=== PATIENT | male | born 1940 | race Caucasian/White ===

== ENCOUNTER → 2016-08-04 | Outpatient (CLI) | payer OTHER ==
[~2016-08-04] MED LIST: 'XANAX0.5 MG PO; ASPIR LOW81 MG PO; ASPIRIN81 M1 PO; ASPIRIN81 MG PO; BACTRIM DS 8001 TA1 PO; CIPRO500 MG PO; CIPROFLOXACIN500 MG PO; CLARITIN10 MG PO; CRESTOR5 MG PO; DIABETA2.5 MG PO; DILTIAZEM240 M1 PO; ELIMITE 5%60 GM T; FAMOTIDINE40 MG PO; GABAPENTIN100 M2 PO; GLIPIZIDE XL2.5 MG PO; GLUCOTROL10 MG PO; HYDROCODONE BIT1 T11 PO; KLOR-CON M2020 MEQ PO; KLOR-CON20 MEQ PO; LASIX20 MG PO; LEVOFLOXACIN500 MG PO; LIDEX 0.05% CRE15 GM T; LISINOPRIL5 MG PO; LOMOTIL 0.025 M1 TA1 PO; LOPRESSOR25 MG PO; METFORMIN500 MG PO; METOPROLOL TART50 M1 PO; NITROGLYCERIN0.4 MG SL; NITROSTAT0.4 MG SL; PEPCID40 MG PO; PLAVIX75 M1 PO; PLAVIX75 MG PO; POTASSIUM CHLO20 ME3 PO; PRAVACHOL80 M1 GT; PREDNISONE20 M1 PO; PREDNISONE50 MG PO; PROTONIX20 MG PO; SERTRALINE50 MG PO; XANAX0.5 MG PO; ZOCOR40 MG PO; ZOFRAN ODT4 MG SL
[2016-08-04 10:41] LABS: BASO % 0.5 % (0.0-1.0); EOS # 0.2 10*3/uL (0.0-0.4); EOS % 2.7 % (1.0-4.0); HEMOGLOBIN 13.5 g/dl (14.0-18.0); LYMPH # 1.5 10*3/uL (1.3-4.4); LYMPH % 17.7 % (27.0-41.0); MEAN CELL VOLUME 86.5 fl (80.0-94.0); MEAN CORPUSCULAR HGB 28.5 pg (27.0-31.0); MEAN CORPUSCULAR HGB CONC 32.9 g/dl (33.0-37.0); MEAN PLATELET VOLUME 10.3 fl (9.6-12.3); MONO # 0.7 10*3/uL (0.1-1.0); MONO % 7.8 % (3.0-9.0); NEUT # 6.1 10*3/uL (2.3-7.9); NEUT % 70.9 % (47.0-73.0); PLATELET COUNT AUTOMATED 200 10*3/uL (130-400); RED BLOOD COUNT 4.74 10*6/uL (4.50-5.90); RED CELL DISTRI WIDTH 16.2 % (0-14.5); WHITE BLOOD COUNT 8.6 10*3/uL (4.8-10.8)
[2016-08-04 11:11] LABS: ALBUMIN 3.4 gm/dl (3.1-4.5); BILIRUBIN, TOTAL 0.3 mg/dl (0.2-1.0); BUN 22 mg/dl (7-24); CARBON DIOXIDE 26 mmol/L (21-32); CHLORIDE 104 mmol/L (98-107); EST GLOM FILT AFRICAN AMERICAN > 60 ml/min; GLUCOSE 126 mg/dL (65-99); POTASSIUM 4.7 mmol/L (3.5-5.1); SGOT/AST 22 IU/L (3-35); SGPT/ALT 25 U/L (12-78); SODIUM 140 mmol/L (136-145)
[2016-08-04 11:12] LABS: ALKALINE PHOSPHATASE 76 U/L (45-117); TOTAL PROTEIN 7.8 gm/dL (6.4-8.2)
== END | disposition home or self-care (01) ==
LOC: LAB 10:22 → US 11:00
PROVIDERS: Urology
DX: C67.9 Malignant neoplasm of bladder, unspecified (principal); Z90.6 Acquired absence of other parts of urinary tract

== ENCOUNTER → 2016-11-13 | Outpatient (CLI) | payer OTHER ==
[2016-11-13 12:26] LABS: BUN 17 mg/dl (7-24); CARBON DIOXIDE 26 mmol/L (21-32); CHLORIDE 105 mmol/L (98-107); CHOLESTEROL 136 mg/dL (<200); EST GLOM FILT AFRICAN AMERICAN > 60 ml/min; GLUCOSE 100 mg/dL (65-99); HDL CHOLESTEROL 34 mg/dl (40-60); LDL CHOLESTEROL 48 mg/dL (9-159); POTASSIUM 4.7 mmol/L (3.5-5.1); SGOT/AST 21 IU/L (3-35); SGPT/ALT 26 U/L (12-78); SODIUM 137 mmol/L (136-145); TRIGLYCERIDES 270 mg/dl (<150); VLDL CHOLESTEROL 54 mg/dL (6-40)
== END | disposition home or self-care (01) ==
LOC: LAB 11:10
PROVIDERS: Internal Medicine Cardiovascular Disease
DX: I25.5 Ischemic cardiomyopathy (principal)

== ENCOUNTER → 2016-12-24 | Outpatient (CLI) | payer OTHER ==
[2016-12-24 12:11] LABS: BUN 22 mg/dl (7-24); CHLORIDE 104 mmol/L (98-107); CREATININE 0.98 mg/dL (0.70-1.30); POTASSIUM 4.5 mmol/L (3.5-5.1); SODIUM 138 mmol/L (136-145)
== END | disposition home or self-care (01) ==
LOC: LAB 11:18
PROVIDERS: Internal Medicine Cardiovascular Disease
DX: I50.22 Chronic systolic (congestive) heart failure (principal)

== ENCOUNTER → 2017-02-11 | Outpatient (CLI) | payer OTHER ==
[2017-02-11 12:28] LABS: BASO % 0.3 % (0.0-1.0); EOS # 0.2 10*3/uL (0.0-0.4); EOS % 2.6 % (1.0-4.0); HEMATOCRIT 42.4 % (42.0-52.0); HEMOGLOBIN 13.9 g/dl (14.0-18.0); LYMPH # 1.2 10*3/uL (1.3-4.4); LYMPH % 18.7 % (27.0-41.0); MEAN CELL VOLUME 89.6 fl (80.0-94.0); MEAN CORPUSCULAR HGB 29.4 pg (27.0-31.0); MEAN CORPUSCULAR HGB CONC 32.8 g/dl (33.0-37.0); MEAN PLATELET VOLUME 10.7 fl (9.6-12.3); MONO # 0.7 10*3/uL (0.1-1.0); MONO % 10.4 % (3.0-9.0); NEUT # 4.5 10*3/uL (2.3-7.9); NEUT % 67.5 % (47.0-73.0); PLATELET COUNT AUTOMATED 197 10*3/uL (130-400); RED BLOOD COUNT 4.73 10*6/uL (4.50-5.90); RED CELL DISTRI WIDTH 14.4 % (0-14.5); WHITE BLOOD COUNT 6.6 10*3/uL (4.8-10.8)
[2017-02-11 13:03] LABS: ALBUMIN 3.5 gm/dl (3.1-4.5); BUN 22 mg/dl (7-24); CHLORIDE 106 mmol/L (98-107); CREATININE 0.92 mg/dL (0.70-1.30); POTASSIUM 4.6 mmol/L (3.5-5.1); SGOT/AST 20 IU/L (3-35); SGPT/ALT 32 U/L (12-78); SODIUM 138 mmol/L (136-145)
[2017-02-11 13:04] LABS: ALKALINE PHOSPHATASE 81 U/L (45-117)
== END | disposition home or self-care (01) ==
LOC: LAB 11:32
PROVIDERS: Urology
DX: Z12.5 Encounter for screening for malignant neoplasm of prostate (principal); D40.0 Neoplasm of uncertain behavior of prostate

== ENCOUNTER → 2017-02-12 | Outpatient (CLI) | payer OTHER ==
[2017-02-12 11:36] LABS: BUN 21 mg/dl (7-24); CHLORIDE 104 mmol/L (98-107); CREATININE 1.02 mg/dL (0.70-1.30); POTASSIUM 4.8 mmol/L (3.5-5.1); SODIUM 137 mmol/L (136-145)
== END | disposition home or self-care (01) ==
LOC: LAB 10:17
PROVIDERS: Internal Medicine Cardiovascular Disease
DX: I25.10 Atherosclerotic heart disease of native coronary artery without angina pectoris (principal); I10 Essential (primary) hypertension

== ENCOUNTER → 2017-06-15 | Outpatient (CLI) | payer MEDICARE | END | disposition home or self-care (01) | LOC: CT 09:45 | DX: Z85.46 Personal history of malignant neoplasm of prostate (principal); Z95.0 Presence of cardiac pacemaker ==

== ENCOUNTER 2017-06-25 07:36 | Inpatient (IN) | payer MEDICARE ==
[2017-06-25] VITALS (9 sets, daily range): BP systolic 90–134; BP diastolic 42–87
[~2017-06-25] VITALS: Ht 172.7 cm; Wt 112.7 kg
--- NOTE | ~2017-06-25 | EKG ---
[place], [place] ELECTROCARDIOGRAM REPORT NAME: ALFREDO COOPER UNIT #: [id number] ROOM: 427 DOCTOR: KAITLYNN RODRIGUEZ [facility] BIRTHDATE: [birth year] DOS: 07/02/2017 TRACING TIME: 0736 CONCLUSION: The underlying rhythm appears to be atrial flutter. VVI pacing appears to be pacemaker dependent. JENNIFER CALDERÓN MD CM:EKGRPT:ELECTROCARDIOGRAM REPORT [id number] JENNIFER CALDERÓN MD [facility]
--- NOTE | ~2017-06-25 | PROC NOTE ---
[place], [place] PROCEDURE NOTE NAME: ALFREDO COOPER UNIT #: [id number] ROOM: 408 DOCTOR: NISA TOMAS BIRTHDATE: [birth year] DOS: 07/01/2017 MODIFIED BARIUM SWALLOW LOCATION: [facility], room 408, bed 2. DOCTOR: 07/01/2017. ORDERING PHYSICIAN: Cole Forrest DO RADIOLOGIST: Dr. Kam. BACKGROUND INFORMATION: The patient os a 76-year-old male who was seen for modified barium swallow. This test was ordered to rule out silent aspiration. The patient is diagnosed with acute aspiration pneumonia. Further medical history is significant for UTI, ARF, HTN, AK, CAD, DM, CABG and anxiety. The patient denied any recent difficulty with chewing or swallowing. He currently receives a regular diet and thin liquids. For today's assessment, he was alert and able to follow commands. Oral peripheral examination revealed presence of natural teeth with several missing. Lingual, labial and buccal skills were within normal limits in terms of strength, range of motion and coordination. The patient was able to volitionally cough and swallow. METHODS AND MATERIALS USED FOR THE EXAM: The patient was positioned in the lateral plane and the exam was viewed under fluoroscopy. The patient was presented with a variety of consistencies to assess swallowing skills including pureed consistency mixed with barium presented in half teaspoon amounts, barium-coated banana and sandwich taken in bite size pieces and thin liquid barium taken by cup. ORAL PHASE: The patient achieved adequate labial seal around cup and spoon with no anterior loss. Bolus formation and transit were adequate. Careful mastication was displayed with all solids. Tongue to palate contact was within normal limits. Tongue retraction was in normal limits. Velar functioning was within normal limits with no nasal regurgitation. PHARYNGEAL PHASE: Unremarkable. ESOPHAGEAL PHASE: This phase of the swallow was not formally assessed during this exam. IMPRESSIONS AND RECOMMENDATIONS: Based upon assessment results, this 76-year-old patient presents with swallowing skills within normal limits and oral and pharyngeal phases. Recommend he remain on present diet. Follow up therapy is not warranted. Results and recommendations were shared with the patient and he verbalized understanding. Thank you very much for this referral. Should you have any questions regarding this patient, please contact the speech pathologist at [phone]. [place], [place] PROCEDURE NOTE NAME: ALFREDO COOPER UNIT #: [id number] ROOM: [facility] DOCTOR: NISA TOMAS BIRTHDATE: [birth year] NISA TOMAS CM:PROCNOTE:PROCEDURE NOTE [id number] NISA TOMAS
--- NOTE | ~2017-06-25 | PR ---
[place], [place] PROGRESS NOTE NAME: ALFREDO COOPER UNIT #: [id number] ROOM: 408 DOCTOR: FORTINO ZAMORA MD BIRTHDATE: [birth year] DOS: 06/29/2017 SUBJECTIVE: The patient has been currently sitting on the chair without any distress. Cough has been noted mild without any sputum expectoration. Denies symptoms of chest pain or hemoptysis, abdominal pain. Eating his food for this patient as ordered. Respiratory harper, the patient noted quite stable. OBJECTIVE: VITAL SIGNS: Temperature 99.2 degree Fahrenheit, normal temperature, respiratory rate 18, heart rate 117-88, blood pressure 125/98-126/65. Pulse oxygen saturation 3 liters nasal cannula 93% saturation. HEENT: Head was atraumatic. Eyes nonicterus. NECK: Supple. CARDIOVASCULAR: S1, S2 audible. LUNG: ____ reduction in breath sounds bilaterally. No wheezing. Minimal crackles in the right lung base. ABDOMEN: Soft and obese. Bowel sounds present. EXTREMITIES: With mild edema. LABORATORY DATA: Culture of the sputum for the patient from yesterday was pending. The Gram stain of the patient, reviewed and it shows moderate epithelial cells, many gram-positive cocci in chains and white blood cells. Normal abhay preliminary reported. CBC today: WBC count normal, hemoglobin 11.8, platelet count was normal. BMP: Normal BUN and creatinine. IMPRESSION: The patient resolving small bowel obstruction. Acute aspiration pneumonia noted clinically stable. The patient underwent this time treated with antibiotic seem to be clinically responding to treatment with stable pulmonary infiltration noted, lower lung yesterday, the patient with a chest x-ray. PLAN OF TREATMENT: The patient will be treated at this time for the current pneumonia with the antibiotics. Follow up chest x-ray possible in the morning to reassess. No new other intervention to be done. Culture of the sputum will be monitored. [place], [place] PROGRESS NOTE NAME: ALFREDO COOPER UNIT #: [id number] ROOM: 408 DOCTOR: FORTINO ZAMORA MD BIRTHDATE: [birth year] FORTINO BUSTAMANTE MD CM:PNTRANS [id number] FORTINO MORFIN MD 06/29/17 2310 interface
--- NOTE | ~2017-06-25 | EKG ---
[place], [place] ELECTROCARDIOGRAM REPORT NAME: ALFREDO COOPER UNIT #: [id number] ROOM: 408 DOCTOR: KAITLYNN RODRIGUEZ [facility],JENNIFER BIRTHDATE: [birth year] DOS: 06/25/2017 TIME: 0812 hours. CONCLUSION: VVI pacing, indeterminate rhythm, probably sinus with atrial sensing and ventricular pacing, low voltage in limb leads, and nonspecific ST changes. JENNIFER CALDERÓN MD CM:EKGRPT:ELECTROCARDIOGRAM REPORT 0717 0738 JENNIFER CALDERÓN MD [facility]
--- NOTE | ~2017-06-25 | PR ---
[place], [place] PROGRESS NOTE NAME: [facility]OPER [id number] UNIT #: [id number] ROOM: 408 DOCTOR: ROBBY MORFIN MD,FORTINO BIRTHDATE: [birth year] DOS: 06/28/2017 PULMONARY PROGRESS NOTE SUBJECTIVE: The patient was noted comfortable at this time, resting on the bed. Denied symptoms of chest pain or any abdominal pain. The patient has not been noted symptoms of nausea or vomiting. He was eating oral diet. There was no symptoms of abdominal pain. The antibiotic for the patient was continued. OBJECTIVE: VITAL SIGNS: For the patient which has been recorded showed the temperature noted as normal, respiratory rate 20, heart rate of 118/87, blood pressure 110/80 to 111/65. The pulse oxygen saturation for the patient on 2 liters was 94% saturation. HEENT: Showed head was atraumatic, eyes nonicterus. NECK: Supple. CARDIOVASCULAR: S1, S2 audible. LUNGS: Still noted decreased breath sounds with basilar crackles. ABDOMEN: Soft, nontender. Bowel sounds present. EXTREMITIES: Without any acute edema. LABORATORY DATA: Chest x-ray shows persistent bilateral lower lobe infiltration. IMPRESSION: Bilateral lower lobe pneumonia secondary to aspiration with small-bowel obstruction. PLAN OF MANAGEMENT: Continue antibiotics, bronchodilators, oxygen supplementation as previously without changes. Continue all other supportive plan of management and care. Usual treatment and therapies. FORTINO BUSTAMANTE MD CM:PNTRANS [id number] FORTINO MORFIN MD 06/29/17 0508 interface
--- NOTE | ~2017-06-25 | PR ---
[place], [place] PROGRESS NOTE NAME: ALFREDO COOPER [facility] #: [id number] UNIT #: [id number] ROOM: 408 DOCTOR: ROBBY MORFIN MD,FORTINO BIRTHDATE: [birth year] DOS: 06/30/2017 SUBJECTIVE: The patient has been noted with minimal cough at this time. Denies symptoms of chest pain or any hemoptysis. Denies symptoms of abdominal pain, nausea, vomiting, or diarrhea. The patient was continued on intravenous antibiotics. HISTORY OF PRESENT ILLNESS: The patient reported no symptoms of nausea or vomiting, tolerating the oral food. Denies any symptoms of nausea and vomiting at this time or diarrhea. He denies any pain or edema of the lower extremity. Denies symptoms of palpitations. General weakness and fatigue was noted. The patient was ambulated with the use of the walker. OBJECTIVE: VITAL SIGNS: For the patient, which was recorded showed the temperature noted as normal. The respiratory rate of the patient recorded as 20, heart rate of 118-132, blood pressure 135/70-122/62. The pulse oxygen saturation of the patient noted on 2 liters nasal cannula 96% saturation. HEENT: Examination shows head was atraumatic. Eyes nonicterus. NECK: Supple. CARDIOVASCULAR: S1, S2 is audible. LUNGS: The patient was noted with moderate decreased breath sounds were noted in the lungs. The crackles still heard in the lower portion of the lungs, much greater in the left lower than the right lower lobe. ABDOMEN: Soft and nontender. EXTREMITIES: The patient was noted without any clubbing or cyanosis. Mild edema was noted at the ankles. VISIBLE SKIN: No lesions or rashes. CENTRAL NERVOUS SYSTEM: Cranial nerves 2-12 intact. No focal deficits. MUSCULOSKELETAL: Without any acute deformities. LABORATORY DATA: One of the sputum culture from the 18th shows moderate growth of yeast. The second culture which was done later on for the patient showing normal abhay. Preliminary final culture results were pending. Chest x-ray of the patient shows evidence of bilateral infiltration, greater in the left lower than the right lower lobe. IMPRESSION: Bilateral acute aspiration pneumonia with recurrent small-bowel obstruction with aspiration. PLAN OF THERAPY. Changing the Rocephin for this patient to intravenous doxycycline. Discontinuation of the Zithromax. Monitor chest x-ray as well. Other supportive plan of management and care plan: The patient was also noted intermittent tachycardia, which has been managed as well. Other supportive therapy, plan of management and care plan. No change. There was no blood culture needed at the present time. Other supportive plan of management and treatments. [place], [place] PROGRESS NOTE NAME: ALFREDO COOPER UNIT #: [id number] ROOM: [facility] DOCTOR: ROBBY MORFIN MD,FORTINO BIRTHDATE: [birth year] FORTINO BUSTAMANTE MD CM:PNKEM [id number] FORTINO MORFIN MD 06/30/177 interface
--- NOTE | ~2017-06-25 | PR ---
[place], [place] PROGRESS NOTE NAME: ALFREDO COOPER UNIT #: [id number] ROOM: 427 DOCTOR: ROBBY MORFIN MD,FORTINO BIRTHDATE: [birth year] DOS: 07/01/2017 SUBJECTIVE: The patient noted comfortable at this time, resting in the bed, stated reduction of the respiratory symptoms. Cough has been noted productive, able to expectorate sputum. Feeling better in the last 24 hours. Denies symptoms of chest pain or hemoptysis. OBJECTIVE: VITAL SIGNS: Normal temperature, respiratory rate 18, heart rate 78, blood pressure 98/49. Pulse oxygen saturation on 2 liters 95% saturation. HEENT: Examination shows head was atraumatic. Eyes: No icterus. NECK: Supple. CARDIOVASCULAR: S1, S2 is audible. LUNGS: Noted without any wheezing. Crackles still noted in the lower portion of the lungs region bilaterally, partially decreased from previously. ABDOMEN: Soft, nontender, bowel sounds present. EXTREMITIES: Without any acute edema. IMPRESSION: The patient was being currently noted with acute aspiration pneumonia of the patient's lower lung. The patient currently being treated with antibiotics. The patient started on IV doxycycline yesterday. The Rocephin was also continued. PLAN OF THERAPY: Obtain a chest x-ray in the morning for reassessment of progression of pneumonia prior to making final home discharge consideration. Tachycardia has been noted better. FORTINO BUSTAMANTE MD CM:PNTRANS [id number] FORTINO MORFIN MD 07/09/17 1009 interface
--- NOTE | ~2017-06-25 | CON ---
[place], [place] REPORT OF CONSULTATION NAME: ALFREDO COOPER [facility] #: [id number] UNIT #: [id number] ROOM: 408 DOCTOR: ROBBY MORFIN MDFORTINO BIRTHDATE: [birth year] DOS: 06/27/2017 PULMONARY CONSULTATION, EVALUATION AND MANAGEMENT CONSULTATION REQUESTED BY By the hospitalist services. REASON FOR CONSULTATION: For the assessment of pneumonia. HISTORY OF PRESENT ILLNESS:. This is a 76-year-old white male patient who was admitted to the hospital on 06/25/2017 as the patient developed pain in the abdomen. The patient reported with symptoms of nausea, vomiting, emesis and unable to pass the stool. The patient was admitted to the hospital. A CT scan of the abdomen and pelvis was done for the patient. NG tube was placed for the patient and small bowel obstruction was suspected. The patient has been treated for that. He has not been noted any symptoms of coughing, sputum expectoration, or chest pain with the current symptom. Denies symptoms of acute shortness of breath. On this hospitalization, the patient had a CT scan of the chest performed yesterday as the patient described some symptoms of shortness breath and pleural fluid noted in the chest x-ray. Reported findings of pneumonia for this patient, superimposed on the emphysema. The patient denies any symptoms of acute shortness of breath at this time. He does not report any symptoms of coughing or chest pain or hemoptysis. REVIEW OF SYSTEMS: CONSTITUTIONAL SYMPTOMS: Fatigue and tiredness, which was noted better since admission. EYES: Denies burning, redness, or tenderness. EARS, NOSE, THROAT SYMPTOMS: Denies sore throat, hoarseness, otalgia, postnasal drainage or epistaxis. CARDIOVASCULAR: Denies anginal pain, edema, or pain of lower extremity. GASTROINTESTINAL SYMPTOMS: Abdominal pain previously reported seem to be better at this time. He has been passing stool and eating a solid breakfast this morning after assessment. Denies symptoms of abnormal weight loss or aspiration or dysphagia. GENITOURINARY: No dysuria, suprapubic pain, or hematuria. MUSCULOSKELETAL: No acute joint pain, redness, or tenderness. SKIN: No abnormal lesions or rashes. MUSCULOSKELETAL: Without any acute deformities are reported. CENTRAL NERVOUS SYSTEM: No dizziness, headache, diplopia, or syncopal episodes. Remaining systems were reviewed, they were noted all negative by the patient. PAST MEDICAL HISTORY: 1. Known with history of type 2 diabetes mellitus. 2. COPD. 3. Hyperlipidemia. 4. Essential hypertension. 5. Cardiac dysrhythmia with AICD in place. 6. Chronic prostate problem, bladder cancer with suprapubic catheter. [place], [place] REPORT OF CONSULTATION NAME: ALFREDO COOPER UNIT #: [id number] ROOM: 408 DOCTOR: GABRIELLA ZAMORA MDM BIRTHDATE: [birth year] PAST SURGICAL HISTORY: 1. Abdominal hernia repair. 2. Total cystectomy for the management of bladder cancer with suprapubic catheter insertion. 3. Cardiac catheterization and coronary stents insertion. 4. ____ history. 5. Radical prostatectomy. 6. Pacemaker/AICD insertion. SOCIAL HISTORY: He is , lives at home. The patient has been noted history of tobacco use, started teenager heavy smoking of cigarettes, 1.5 pack of cigarettes per day until 1997. 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 He does have 2 children. FAMILY HISTORY: The patient reported father with complication related to the congestive heart failure. Mother also with complication of congestive heart failure. HOME MEDICATIONS: Listed as use of aspirin, vitamin D, Plavix, Cardizem, Entresto, famotidine, gabapentin, glipizide, Mucinex, loratadine, metformin, metoprolol tartrate, nitroglycerin, potassium chloride, simvastatin and CoQ10. ALLERGIES: ALLERGIES TO THE VANCOMYCIN WITH SEVERE ANAPHYLAXIS AND SPIRIVA CAUSING CHEST PAIN. PHYSICAL EXAMINATION: GENERAL: A 76-year-old male who has been currently sitting on the side of the bed, eating his breakfast. Height was noted 5 feet 8 inches, weight of 248 pounds. VITAL SIGNS: For the patient, which has been recorded showed the temperature noted as 99.3 degree Fahrenheit, normal temperature, respiratory rate 19-20, heart rate of 115-93, blood pressure 104/52-98/50. The pulse oxygen saturation of the patient recorded on 4 liters 91% saturation at rest. The room air oxygen saturation 96% saturation previously. HEENT: Mild to moderate obese. Head was atraumatic. Eye nonicterus. NECK: Supple. CARDIOVASCULAR: S1, S2 audible. LUNGS: Noted scattered crackles in the lungs bilaterally. There was no wheezing. ABDOMEN: Noted [id number]-[id number] obesity, bowel sounds are present without any tenderness. CENTRAL NERVOUS SYSTEM: Cranial nerves 2-12 intact. MUSCULOSKELETAL: Noted without any acute deformities. SKIN: No lesions or rashes. LABORATORY DATA: CBC of the patient on admission 06/25/2017 was essentially noted normal. Lactic acid 3.6 on admission on 06/25/2017. PT/PTT for the patient on 06/26/2017 was normal. CMP of the patient on 06/25/2017 for the patient, BUN 20, creatinine 1.38. Sodium 134. The PT/INR for the patient on the 06/25/[address] scan of the abdomen, pelvis, and lower [place], [place] REPORT OF CONSULTATION NAME: ALFREDO COOPER UNIT #: [id number] ROOM: [facility] DOCTOR[facility] B[facility] [birth year] portion of the thoracic images of the patient were reviewed. The patient initially done at 06/15/2017, patient shows a small area of infiltration in the left lower lobe cannot be excluded, otherwise, there was lower portion of the chest. The patient does not show any acute infiltration. Chest x-ray of the patient shows cardiomegaly. For this patient, NG tube in place with incomplete visibility of the left hemidiaphragm. The patient AICD noted in place. The CT scan of the chest for the patient was noted with a dense infiltration. In the left lower lobe for the patient also infiltrate was involving part of the left upper lobe as well. Small patchy infiltration noted in the left upper lobe. Cystic appearance was noted in the posterior subsegment of the left upper lobe, most likely is an emphysema changes surrounded by the dense area of consolidation, infiltration. Mild thickening of the right minor fissure was also seen. IMPRESSION: 1. The patient was occurring to the hospital with GI symptoms, nausea, vomiting, and constipation with small-bowel obstruction most likely aspiration pneumonia to be considered intermittently developed from admission is the most likely cause. The community-acquired infection would be considered for this patient as well as the antibiotic, which has been given for this patient should suffice for recurrent community-acquired aspiration with Rocephin and Zithromax. Monitor temperature curve. Bronchodilator. The patient will be added to the treatment to help mobilize secretions. Order the sputum for Gram stain and culture to coughing increase and they become productive. Other supportive plan of therapy and management, plan of care. Additional treatment changes to be made for this patient based on the progression of the illness. Thanks for allowing me to participate in the care of this patient. FORTINO BUSTAMANTE MD CM:CONSTR:REPORT OF CONSULTATION 1245 06/28/17 0056 interface
--- NOTE | ~2017-06-25 | PR ---
[place], [place] PROGRESS NOTE NAME: ALFREDO COOPER UNIT #: [id number] ROOM: 427 DOCTOR: FORTINO ZAMORA MD BIRTHDATE: [birth year] DOS: 06/30/2017 SUBJECTIVE: He has not been reported any symptoms of cough. Denies symptoms of chest pain or any hemoptysis. The patient denies symptoms of nausea or vomiting. OBJECTIVE: VITAL SIGNS: For the patient, which was recorded showed the temperature noted as normal. The respiratory rate of the patient recorded as 20, heart rate 94, blood pressure 99/64, 120/68. Pulse oxygen saturation of the patient was recorded as 94% on room air. HEENT: Examination shows head was atraumatic. Eyes nonicterus. NECK: Supple. CARDIOVASCULAR: S1, S2 audible. LUNGS: The patient was noted without any acute finding. Moderate obesity. NECK: Supple. CARDIOVASCULAR: S1, S2 audible. LUNGS: Noted with improving crackles in the lower lungs bilaterally. ABDOMEN: Soft, nontender. EXTREMITIES: The patient noted without any acute edema. LABORATORY DATA: Modified barium swallow done yesterday noted as normal. The chest x-ray of the patient that was done this morning 2-view, which were taken was assessed shows infiltration of the patient was still noted in lower lung. The patient noted partial improvement. IMPRESSION: 1. Resolving acute bilateral lower lobe aspiration pneumonia clinical radiologically. 2. Small-bowel obstruction, which has been treating the patient conservatively and resolved. PLAN OF MANAGEMENT: The patient will be discharged home on oral antibiotics at this time. Follow up chest x-ray of the patient could be done as an outpatient by the primary care physician for resolution in the next couple of weeks. [place], [place] PROGRESS NOTE NAME: ALFREDO COOPER UNIT #: [id number] ROOM: 427 DOCTOR: FORTINO ZAMORA MD BIRTHDATE: [birth year] FORTINO BUSTAMANTE MD CM:PNTRANS [phone] FORTINO MORFIN MD 07/09/17 1011 interface
[2017-06-25] MEDS ORDERED: ENTRESTO 24 MG1 EACH PO (07:53)
[2017-06-25 08:33] LABS: BASO % 0.3 % (0.0-1.0); EOS # 0.1 10*3/uL (0.0-0.4); HEMOGLOBIN 13.9 g/dl (14.0-18.0); LYMPH # 0.6 10*3/uL (1.3-4.4); LYMPH % 5.6 % (27.0-41.0); MEAN CELL VOLUME 90.5 fl (80.0-94.0); MEAN CORPUSCULAR HGB CONC 33.1 g/dl (33.0-37.0); MEAN PLATELET VOLUME 10.4 fl (9.6-12.3); MONO # 0.8 10*3/uL (0.1-1.0); MONO % 7.1 % (3.0-9.0); NEUT # 9.1 10*3/uL (2.3-7.9); NEUT % 85.6 % (47.0-73.0); PLATELET COUNT AUTOMATED 167 10*3/uL (130-400); RED BLOOD COUNT 4.64 10*6/uL (4.50-5.90); RED CELL DISTRI WIDTH 14.2 % (0-14.5); WHITE BLOOD COUNT 10.7 10*3/uL (4.8-10.8)
[2017-06-25 08:42] LABS: ACT PARTIAL THROMBO TIME 23.1 SECONDS (20.8-31.5)
[2017-06-25 08:48] LABS: ALBUMIN 3.3 gm/dl (3.1-4.5); ALKALINE PHOSPHATASE 69 U/L (45-117); BUN 20 mg/dl (7-24); CHLORIDE 101 mmol/L (98-107); CREATININE 1.38 mg/dL (0.70-1.30); LIPASE 195 U/L (73-393); POTASSIUM 4.9 mmol/L (3.5-5.1); SGOT/AST 20 IU/L (3-35); SGPT/ALT 28 U/L (12-78); SODIUM 134 mmol/L (136-145); TOTAL PROTEIN 7.4 gm/dL (6.4-8.2); TROPONIN I < 0.015 ng/ml (<0.045)
[2017-06-25 09:01] LABS: BILIRUBIN NEGATIVE (NEGATIVE); BLOOD NEGATIVE (NEGATIVE); CLARITY SL CLOUDY (CLEAR); COLOR YELLOW (YELLOW); GLUCOSE NEGATIVE (NEGATIVE); KETONE NEGATIVE (NEGATIVE); LEUKO ESTERASE NEGATIVE (NEGATIVE); NITRITE POSITIVE (NEGATIVE); PH 6.5 (5.0-9.0); SPECIFIC GRAVITY 1.015 (1.005-1.030); UROBILINOGEN 0.2 E.U./dl (0.2-1.0)
[2017-06-25 09:12] LABS: BACTERIA 2+; WBC 16-20 wbc/hpf (0-5)
[2017-06-25] MEDS ORDERED: SPIRIVA18 MCG PO (13:11)
[2017-06-25] MEDS ORDERED: GUAIFENESIN600 MG PO (13:13)
[2017-06-25] MEDS ORDERED: COQ-1030 MG PO (13:13)
[2017-06-25] MEDS ORDERED: NEURONTIN100 MG PO (13:14)
[2017-06-25] MEDS ORDERED: CARTIA XT240 MG PO (13:15)
[2017-06-25] MEDS ORDERED: VITAMIN D31000 UNIT PO (13:16)
[2017-06-25] MEDS ORDERED: ZOCOR10 MG PO (13:17)
[2017-06-26] VITALS: BP 90/50
[2017-06-26 06:17] LABS: HEMATOCRIT 37.4 % (42.0-52.0); HEMOGLOBIN 12.4 g/dl (14.0-18.0); MEAN CELL VOLUME 92.3 fl (80.0-94.0); MEAN CORPUSCULAR HGB 30.6 pg (27.0-31.0); MEAN CORPUSCULAR HGB CONC 33.2 g/dl (33.0-37.0); MEAN PLATELET VOLUME 10.9 fl (9.6-12.3); PLATELET COUNT AUTOMATED 140 10*3/uL (130-400); RED BLOOD COUNT 4.05 10*6/uL (4.50-5.90); RED CELL DISTRI WIDTH 14.5 % (0-14.5); WHITE BLOOD COUNT 7.9 10*3/uL (4.8-10.8)
[2017-06-26 06:26] LABS: ALBUMIN 2.6 gm/dl (3.1-4.5); CREATININE 1.9 mg/dL (0.70-1.30); PHOSPHOROUS 3.7 mg/dL (2.5-4.9); POTASSIUM 5.3 mmol/L (3.5-5.1); TOTAL PROTEIN 6.1 gm/dL (6.4-8.2)
[2017-06-26 06:31] LABS: THYROID STIM HORMONE (HS) 1.03 uIU/ml (0.358-4.75)
[2017-06-26 06:45] LABS: TOTAL CELLS COUNTED 100 #CELLS
[2017-06-26 06:46] LABS: INTERNATIONAL NORM RATIO 1.1 (2.0-3.5); PLATELET SUFFICIENCY NORMAL (NORMAL)
[2017-06-26 07:29] LABS: VITAMIN D, 25-HYDROXY 18.8 ng/mL (30-100)
[2017-06-26 08:00] VITALS: BP 118/42
[2017-06-26 12:00] VITALS: BP 98/50
[2017-06-26 20:00] VITALS: BP 98/42
[2017-06-27] VITALS: BP 104/52
[2017-06-27 06:21] LABS: BASO % 0.1 % (0.0-1.0); EOS # 0.1 10*3/uL (0.0-0.4); EOS % 0.8 % (1.0-4.0); HEMATOCRIT 35.4 % (42.0-52.0); HEMOGLOBIN 11.8 g/dl (14.0-18.0); LYMPH # 0.6 10*3/uL (1.3-4.4); LYMPH % 7.4 % (27.0-41.0); MEAN CELL VOLUME 92.7 fl (80.0-94.0); MEAN CORPUSCULAR HGB 30.9 pg (27.0-31.0); MEAN CORPUSCULAR HGB CONC 33.3 g/dl (33.0-37.0); MONO # 0.6 10*3/uL (0.1-1.0); MONO % 7.8 % (3.0-9.0); NEUT # 6.4 10*3/uL (2.3-7.9); PLATELET COUNT AUTOMATED 115 10*3/uL (130-400); RED BLOOD COUNT 3.82 10*6/uL (4.50-5.90); RED CELL DISTRI WIDTH 14.6 % (0-14.5); WHITE BLOOD COUNT 7.7 10*3/uL (4.8-10.8)
[2017-06-27 06:52] LABS: ALBUMIN 2.5 gm/dl (3.1-4.5); BUN 24 mg/dl (7-24); CHLORIDE 105 mmol/L (98-107); CREATININE 1.14 mg/dL (0.70-1.30); PHOSPHOROUS 2.6 mg/dL (2.5-4.9); POTASSIUM 4.5 mmol/L (3.5-5.1); SODIUM 138 mmol/L (136-145)
[2017-06-27 08:00] VITALS: BP 80/60
[2017-06-27 12:00] VITALS: BP 102/63
[2017-06-27 16:00] VITALS: BP 118/54
[2017-06-27 20:00] VITALS: BP 116/55
[2017-06-28] VITALS: BP 106/52
[2017-06-28 06:22] LABS: BASO % 0.1 % (0.0-1.0); EOS # 0.1 10*3/uL (0.0-0.4); EOS % 1.3 % (1.0-4.0); HEMATOCRIT 35.5 % (42.0-52.0); HEMOGLOBIN 11.7 g/dl (14.0-18.0); LYMPH # 0.6 10*3/uL (1.3-4.4); LYMPH % 7.2 % (27.0-41.0); MEAN CELL VOLUME 92.7 fl (80.0-94.0); MEAN CORPUSCULAR HGB 30.5 pg (27.0-31.0); MONO # 0.8 10*3/uL (0.1-1.0); MONO % 9.4 % (3.0-9.0); NEUT # 6.6 10*3/uL (2.3-7.9); NEUT % 80.9 % (47.0-73.0); PLATELET COUNT AUTOMATED 123 10*3/uL (130-400); RED BLOOD COUNT 3.83 10*6/uL (4.50-5.90); RED CELL DISTRI WIDTH 14.5 % (0-14.5); WHITE BLOOD COUNT 8.2 10*3/uL (4.8-10.8)
[2017-06-28 06:45] LABS: BUN 22 mg/dl (7-24); CHLORIDE 105 mmol/L (98-107); CREATININE 0.92 mg/dL (0.70-1.30); PHOSPHOROUS 2.6 mg/dL (2.5-4.9); POTASSIUM 4.2 mmol/L (3.5-5.1); SODIUM 138 mmol/L (136-145)
[2017-06-28 08:00] VITALS: BP 111/65
[2017-06-28 12:00] VITALS: BP 110/80
[2017-06-28 16:00] VITALS: BP 117/52
[2017-06-29 00:55] VITALS: BP 126/65
[2017-06-29 07:06] LABS: BASO % 0.3 % (0.0-1.0); EOS # 0.2 10*3/uL (0.0-0.4); EOS % 2.7 % (1.0-4.0); HEMATOCRIT 35.7 % (42.0-52.0); HEMOGLOBIN 11.3 g/dl (14.0-18.0); LYMPH # 0.7 10*3/uL (1.3-4.4); LYMPH % 11.1 % (27.0-41.0); MEAN CELL VOLUME 92.2 fl (80.0-94.0); MEAN CORPUSCULAR HGB 29.2 pg (27.0-31.0); MEAN CORPUSCULAR HGB CONC 31.7 g/dl (33.0-37.0); MEAN PLATELET VOLUME 10.7 fl (9.6-12.3); MONO # 0.8 10*3/uL (0.1-1.0); MONO % 12.5 % (3.0-9.0); NEUT # 4.8 10*3/uL (2.3-7.9); NEUT % 72.5 % (47.0-73.0); RED BLOOD COUNT 3.87 10*6/uL (4.50-5.90); RED CELL DISTRI WIDTH 14.5 % (0-14.5); WHITE BLOOD COUNT 6.6 10*3/uL (4.8-10.8)
[2017-06-29 07:07] LABS: PLATELET COUNT AUTOMATED 162 10*3/uL (130-400)
[2017-06-29 07:29] LABS: BUN 22 mg/dl (7-24); CHLORIDE 105 mmol/L (98-107); CREATININE 0.96 mg/dL (0.70-1.30); POTASSIUM 4.1 mmol/L (3.5-5.1); SODIUM 138 mmol/L (136-145)
[2017-06-29 08:00] VITALS: BP 125/98
[2017-06-29 12:00] VITALS: BP 94/62
[2017-06-29 16:00] VITALS: BP 119/66
[2017-06-29 20:00] VITALS: BP 132/71
[2017-06-30] VITALS: BP 122/62
[2017-06-30 00:46] LABS: BUN 24 mg/dl (7-24); CHLORIDE 105 mmol/L (98-107); CREATININE 0.81 mg/dL (0.70-1.30); PHOSPHOROUS 3.2 mg/dL (2.5-4.9); POTASSIUM 4.2 mmol/L (3.5-5.1); SODIUM 139 mmol/L (136-145)
[2017-06-30 06:12] LABS: BASO % 0.3 % (0.0-1.0); EOS # 0.2 10*3/uL (0.0-0.4); EOS % 3.5 % (1.0-4.0); HEMATOCRIT 35.1 % (42.0-52.0); HEMOGLOBIN 11.4 g/dl (14.0-18.0); LYMPH # 0.8 10*3/uL (1.3-4.4); LYMPH % 11.6 % (27.0-41.0); MEAN CELL VOLUME 91.9 fl (80.0-94.0); MEAN CORPUSCULAR HGB 29.8 pg (27.0-31.0); MEAN CORPUSCULAR HGB CONC 32.5 g/dl (33.0-37.0); MEAN PLATELET VOLUME 10.3 fl (9.6-12.3); MONO # 0.8 10*3/uL (0.1-1.0); MONO % 10.9 % (3.0-9.0); NEUT % 72.5 % (47.0-73.0); PLATELET COUNT AUTOMATED 157 10*3/uL (130-400); RED BLOOD COUNT 3.82 10*6/uL (4.50-5.90); RED CELL DISTRI WIDTH 14.4 % (0-14.5); WHITE BLOOD COUNT 6.9 10*3/uL (4.8-10.8)
[2017-06-30 08:00] VITALS: BP 135/70
[2017-06-30] MEDS ORDERED: ENTRESTO 49 MG1 EACH PO (10:48)
[2017-06-30 12:00] VITALS: BP 98/78
[2017-06-30 12:54] LABS: PHOSPHOROUS 2.7 mg/dL (2.5-4.9)
[2017-06-30 16:00] VITALS: BP 106/50
[2017-06-30 20:00] VITALS: BP 100/48
[2017-07-01] VITALS (7 sets, daily range): BP systolic 88–130; BP diastolic 49–62
[2017-07-01 06:49] LABS: BASO % 0.4 % (0.0-1.0); EOS # 0.2 10*3/uL (0.0-0.4); EOS % 2.7 % (1.0-4.0); HEMATOCRIT 35.4 % (42.0-52.0); HEMOGLOBIN 11.7 g/dl (14.0-18.0); LYMPH # 0.7 10*3/uL (1.3-4.4); LYMPH % 10.7 % (27.0-41.0); MEAN CORPUSCULAR HGB 30.1 pg (27.0-31.0); MEAN CORPUSCULAR HGB CONC 33.1 g/dl (33.0-37.0); MEAN PLATELET VOLUME 9.9 fl (9.6-12.3); MONO # 0.7 10*3/uL (0.1-1.0); MONO % 10.4 % (3.0-9.0); NEUT % 74.6 % (47.0-73.0); PLATELET COUNT AUTOMATED 179 10*3/uL (130-400); RED BLOOD COUNT 3.89 10*6/uL (4.50-5.90); RED CELL DISTRI WIDTH 14.2 % (0-14.5); WHITE BLOOD COUNT 6.7 10*3/uL (4.8-10.8)
[2017-07-01 07:02] LABS: BUN 18 mg/dl (7-24); CHLORIDE 104 mmol/L (98-107); CREATININE 0.75 mg/dL (0.70-1.30); PHOSPHOROUS 3.2 mg/dL (2.5-4.9); POTASSIUM 3.9 mmol/L (3.5-5.1); SODIUM 139 mmol/L (136-145)
[2017-07-02] VITALS: BP 106/50
[2017-07-02 07:01] LABS: BASO % 0.3 % (0.0-1.0); EOS # 0.2 10*3/uL (0.0-0.4); EOS % 2.5 % (1.0-4.0); HEMATOCRIT 39.8 % (42.0-52.0); HEMOGLOBIN 12.4 g/dl (14.0-18.0); LYMPH # 0.8 10*3/uL (1.3-4.4); MEAN CELL VOLUME 93.2 fl (80.0-94.0); MEAN CORPUSCULAR HGB CONC 31.2 g/dl (33.0-37.0); MEAN PLATELET VOLUME 9.9 fl (9.6-12.3); MONO # 0.5 10*3/uL (0.1-1.0); MONO % 8.5 % (3.0-9.0); NEUT # 4.5 10*3/uL (2.3-7.9); NEUT % 74.4 % (47.0-73.0); PLATELET COUNT AUTOMATED 206 10*3/uL (130-400); RED BLOOD COUNT 4.27 10*6/uL (4.50-5.90); RED CELL DISTRI WIDTH 14.4 % (0-14.5); WHITE BLOOD COUNT 6.1 10*3/uL (4.8-10.8)
[2017-07-02 08:00] VITALS: BP 123/68
[2017-07-02] MEDS ORDERED: METOPROLOL SUC100 M1 PO (11:08)
[2017-07-02] MEDS ORDERED: DOXYCYCLINE100 M3 PO (11:08)
[2017-07-02] MEDS ORDERED: PROPAFENONE HC225 MG PO (11:08)
[2017-07-02 12:00] VITALS: BP 99/64
== END 2017-07-02 13:10 | disposition home or self-care (01) | DRG 177 ==
LOC: ED 07:36 → 4E 11:35 → EDHOLD 11:35 → 5E 12:01 → 4E 12:16
PROVIDERS: Emergency Medicine; Hospitalist; Internal Medicine; Internal Medicine Nephrology; Student in an Organized Health Care Education/Training Program
PROC: 4B02XSZ Measurement of Cardiac Pacemaker, External Approach (ICD-10-PCS; 2017-06-27)
PROC: BD11YZZ Fluoroscopy of Esophagus using Other Contrast (ICD-10-PCS; principal; 2017-07-01)
PROC: BD1BYZZ Fluoroscopy of Mouth/Oropharynx using Other Contrast (ICD-10-PCS; principal; 2017-07-01)
DX: J69.0 Pneumonitis due to inhalation of food and vomit (principal); N17.0 Acute kidney failure with tubular necrosis; K56.609 Unspecified intestinal obstruction, unspecified as to partial versus complete obstruction; E87.2 Acidosis; I50.22 Chronic systolic (congestive) heart failure; E87.1 Hypo-osmolality and hyponatremia; E11.65 Type 2 diabetes mellitus with hyperglycemia; I11.0 Hypertensive heart disease with heart failure; E87.5 Hyperkalemia; D64.9 Anemia, unspecified; K59.00 Constipation, unspecified; I49.3 Ventricular premature depolarization; I25.10 Atherosclerotic heart disease of native coronary artery without angina pectoris; E78.5 Hyperlipidemia, unspecified; F41.9 Anxiety disorder, unspecified; F17.210 Nicotine dependence, cigarettes, uncomplicated; E66.01 Morbid (severe) obesity due to excess calories; Z93.59 Other cystostomy status; Z82.49 Family history of ischemic heart disease and other diseases of the circulatory system; Z83.3 Family history of diabetes mellitus; Z79.82 Long term (current) use of aspirin; Z79.899 Other long term (current) drug therapy; Z95.5 Presence of coronary angioplasty implant and graft; Z95.810 Presence of automatic (implantable) cardiac defibrillator; Z88.1 Allergy status to other antibiotic agents; I25.2 Old myocardial infarction; Z68.37 Body mass index [BMI] 37.0-37.9, adult; Z79.84 Long term (current) use of oral hypoglycemic drugs; Z90.6 Acquired absence of other parts of urinary tract

== ENCOUNTER → 2017-08-18 | Outpatient (CLI) | payer MEDICARE ==
[~2017-08-18] MED LIST changes: +CARTIA XT240 MG PO; +COQ-1030 MG PO; +DOXYCYCLINE100 M3 PO; +ENTRESTO 24 MG1 EACH PO; +ENTRESTO 49 MG1 EACH PO; +GUAIFENESIN600 MG PO; +METOPROLOL SUC100 M1 PO; +NEURONTIN100 MG PO; +PROPAFENONE HC225 MG PO; +SPIRIVA18 MCG PO; +VITAMIN D31000 UNIT PO; +ZOCOR10 MG PO
[2017-08-18 10:45] LABS: BASO % 0.5 % (0.0-1.0); EOS # 0.3 10*3/uL (0.0-0.4); EOS % 3.9 % (1.0-4.0); HEMATOCRIT 43.7 % (42.0-52.0); LYMPH # 1.1 10*3/uL (1.3-4.4); LYMPH % 14.7 % (27.0-41.0); MEAN CELL VOLUME 93.2 fl (80.0-94.0); MEAN CORPUSCULAR HGB 29.9 pg (27.0-31.0); MEAN PLATELET VOLUME 10.3 fl (9.6-12.3); MONO # 0.8 10*3/uL (0.1-1.0); MONO % 10.2 % (3.0-9.0); NEUT # 5.4 10*3/uL (2.3-7.9); NEUT % 70.3 % (47.0-73.0); PLATELET COUNT AUTOMATED 201 10*3/uL (130-400); RED BLOOD COUNT 4.69 10*6/uL (4.50-5.90); WHITE BLOOD COUNT 7.6 10*3/uL (4.8-10.8)
[2017-08-18 10:50] LABS: BUN 30 mg/dl (7-24); CHLORIDE 104 mmol/L (98-107); CHOLESTEROL 132 mg/dL (<200); HDL CHOLESTEROL 38 mg/dl (40-60); LDL CHOLESTEROL 67 mg/dL (9-159); POTASSIUM 5.5 mmol/L (3.5-5.1); SGOT/AST 16 IU/L (3-35); SGPT/ALT 24 U/L (12-78); SODIUM 137 mmol/L (136-145); TRIGLYCERIDES 136 mg/dl (<150); VLDL CHOLESTEROL 27 mg/dL (6-40)
== END | disposition home or self-care (01) ==
LOC: LAB 10:05
PROVIDERS: Internal Medicine Cardiovascular Disease
DX: I25.10 Atherosclerotic heart disease of native coronary artery without angina pectoris (principal); I11.0 Hypertensive heart disease with heart failure; I50.22 Chronic systolic (congestive) heart failure; E78.5 Hyperlipidemia, unspecified

== ENCOUNTER → 2017-08-20 | Outpatient (CLI) | payer MEDICARE ==
[2017-08-20 11:01] LABS: BUN 28 mg/dl (7-24); CHLORIDE 106 mmol/L (98-107); POTASSIUM 4.7 mmol/L (3.5-5.1); SODIUM 138 mmol/L (136-145)
== END | disposition home or self-care (01) ==
LOC: LAB 09:53
PROVIDERS: Internal Medicine Cardiovascular Disease
DX: I50.22 Chronic systolic (congestive) heart failure (principal)

== ENCOUNTER → 2017-09-23 | Outpatient (CLI) | payer MEDICARE ==
[~2017-09-23] MED LIST changes: +CEFTRIAXONE1 GM IJ; +PROPAFENONE HC225 M1 PO
[2017-09-23 12:18] LABS: BASO % 0.4 % (0.0-1.0); EOS # 0.2 10*3/uL (0.0-0.4); EOS % 2.7 % (1.0-4.0); HEMATOCRIT 44.6 % (42.0-52.0); HEMOGLOBIN 14.2 g/dl (14.0-18.0); LYMPH # 1.2 10*3/uL (1.3-4.4); LYMPH % 17.1 % (27.0-41.0); MEAN CELL VOLUME 92.9 fl (80.0-94.0); MEAN CORPUSCULAR HGB 29.6 pg (27.0-31.0); MEAN CORPUSCULAR HGB CONC 31.8 g/dl (33.0-37.0); MEAN PLATELET VOLUME 10.1 fl (9.6-12.3); MONO # 0.7 10*3/uL (0.1-1.0); MONO % 9.5 % (3.0-9.0); NEUT # 4.9 10*3/uL (2.3-7.9); PLATELET COUNT AUTOMATED 194 10*3/uL (130-400); RED CELL DISTRI WIDTH 14.4 % (0-14.5)
[2017-09-23 12:38] LABS: ALBUMIN 3.5 gm/dl (3.1-4.5); ALKALINE PHOSPHATASE 88 U/L (45-117); BUN 19 mg/dl (7-24); CHLORIDE 105 mmol/L (98-107); CREATININE 1.26 mg/dL (0.70-1.30); POTASSIUM 4.8 mmol/L (3.5-5.1); SGOT/AST 20 IU/L (3-35); SGPT/ALT 28 U/L (12-78); SODIUM 138 mmol/L (136-145); TOTAL PROTEIN 8.2 gm/dL (6.4-8.2)
== END | disposition home or self-care (01) ==
LOC: LAB 11:51 → US 13:30
PROVIDERS: Urology
DX: Z12.5 Encounter for screening for malignant neoplasm of prostate (principal); N13.39 Other hydronephrosis; C67.9 Malignant neoplasm of bladder, unspecified; I10 Essential (primary) hypertension; R31.9 Hematuria, unspecified

== ENCOUNTER 2017-10-30 19:34 | Inpatient (IN) | payer MEDICARE ==
[~2017-10-30] VITALS: Ht 172.7 cm; Wt 113.0 kg
--- NOTE | ~2017-10-30 | EKG ---
[place], [place] ELECTROCARDIOGRAM REPORT NAME: ALFREDO COOPER UNIT #: [id number] ROOM: 522 DOCTOR: GUILHERME DRAFT REPORT BIRTHDATE: [birth year] [facility] Test Date: 2017-10-30 Test Time: 20:06:53 Pat Name: ALFREDO COOPER Department: Room: Gender: [employer] Operations Manager: : 1940 Requested By: EWELINA CARTER Order Number: [id number] Reading MD: Herrera Kim MD Measurements Intervals Parker Rate: 70 P: 70 TN: 36 QRS: 160 QRSD: 141 T: 44 QT: 432 QTc: 467 Interpretive Statements Atrial-ventricular dual-paced complexes 100% V pacing No further analysis attempted due to paced rhythm Baseline wander in lead(s) II,V5,V6 Electronically Signed On 11-02-2017 18:43:13 PDT by Herrera Kim MD CM:EKGRPT:ELECTROCARDIOGRAM REPORT 05 42 EWELINA VANEGAS DRAFT REPORT EWELINA CARTER MD
[2017-10-30 19:34] VITALS: BP 146/71
[~2017-10-30 19:34] MED LIST changes: -CEFTRIAXONE1 GM IJ; -PROPAFENONE HC225 M1 PO
[2017-10-30 20:15] LABS: BASO % 0.4 % (0.0-1.0); EOS # 0.2 10*3/uL (0.0-0.4); EOS % 2.1 % (1.0-4.0); HEMATOCRIT 43.7 % (42.0-52.0); HEMOGLOBIN 14.3 g/dl (14.0-18.0); LYMPH % 9.6 % (27.0-41.0); MEAN CELL VOLUME 89.9 fl (80.0-94.0); MEAN CORPUSCULAR HGB 29.4 pg (27.0-31.0); MEAN CORPUSCULAR HGB CONC 32.7 g/dl (33.0-37.0); MEAN PLATELET VOLUME 10.2 fl (9.6-12.3); MONO # 0.8 10*3/uL (0.1-1.0); MONO % 7.1 % (3.0-9.0); NEUT # 8.8 10*3/uL (2.3-7.9); NEUT % 80.4 % (47.0-73.0); PLATELET COUNT AUTOMATED 231 10*3/uL (130-400); RED BLOOD COUNT 4.86 10*6/uL (4.50-5.90); RED CELL DISTRI WIDTH 14.2 % (0-14.5); WHITE BLOOD COUNT 10.9 10*3/uL (4.8-10.8)
[2017-10-30 20:32] LABS: ALBUMIN 3.6 gm/dl (3.1-4.5); ALKALINE PHOSPHATASE 75 U/L (45-117); BUN 23 mg/dl (7-24); CHLORIDE 94 mmol/L (98-107); CREATININE 1.54 mg/dL (0.70-1.30); LIPASE 277 U/L (73-393); POTASSIUM 4.1 mmol/L (3.5-5.1); SGOT/AST 17 IU/L (3-35); SGPT/ALT 25 U/L (12-78); SODIUM 136 mmol/L (136-145); TOTAL PROTEIN 8.6 gm/dL (6.4-8.2)
[2017-10-30 20:33] LABS: TROPONIN I < 0.015 ng/ml (<0.045)
[2017-10-30 21:11] LABS: BILIRUBIN NEGATIVE (NEGATIVE); BLOOD 2+ (NEGATIVE); CLARITY CLOUDY (CLEAR); COLOR YELLOW (YELLOW); GLUCOSE NEGATIVE (NEGATIVE); KETONE NEGATIVE (NEGATIVE); LEUKO ESTERASE TRACE (NEGATIVE); NITRITE POSITIVE (NEGATIVE); PH >= 9.0 (5.0-9.0); SPECIFIC GRAVITY <= 1.005 (1.005-1.030); UROBILINOGEN 0.2 E.U./dl (0.2-1.0)
[2017-10-30 21:23] LABS: BACTERIA 4+; EPITHELIAL CELLS 0-2; TRIP PHOS CRYSTALS TNTC; WBC 21-30 wbc/hpf (0-5)
[2017-10-31] VITALS: BP 140/43
[2017-10-31 00:38] VITALS: BP 127/61
[2017-10-31 01:00] VITALS: BP 131/74
[2017-10-31 01:14] VITALS: BP 131/74
[2017-10-31] MEDS ORDERED: PROPAFENONE HC225 M1 PO (01:18)
[2017-10-31] MEDS ORDERED: METOPROLOL SUC100 M1 PO (01:18)
[2017-10-31 05:59] LABS: HEMATOCRIT 44.3 % (42.0-52.0); HEMOGLOBIN 14.2 g/dl (14.0-18.0); MEAN CELL VOLUME 92.3 fl (80.0-94.0); MEAN CORPUSCULAR HGB 29.6 pg (27.0-31.0); MEAN CORPUSCULAR HGB CONC 32.1 g/dl (33.0-37.0); MEAN PLATELET VOLUME 10.4 fl (9.6-12.3); PLATELET COUNT AUTOMATED 234 10*3/uL (130-400); RED CELL DISTRI WIDTH 14.4 % (0-14.5); WHITE BLOOD COUNT 21.5 10*3/uL (4.8-10.8)
[2017-10-31 06:11] LABS: BUN 23 mg/dl (7-24); CHLORIDE 95 mmol/L (98-107); CREATININE 1.38 mg/dL (0.70-1.30); PHOSPHOROUS 4.2 mg/dL (2.5-4.9); POTASSIUM 4.5 mmol/L (3.5-5.1); SODIUM 137 mmol/L (136-145)
[2017-10-31 06:44] LABS: PLATELET SUFFICIENCY NORMAL (NORMAL); TOTAL CELLS COUNTED 100 #CELLS
[2017-10-31 08:00] VITALS: BP 120/52
[2017-10-31 12:00] VITALS: BP 108/50
[2017-10-31] MEDS ORDERED: CEFTRIAXONE1 GM IJ (12:47)
== END 2017-10-31 14:56 | disposition short-term general hospital (02) | DRG 388 ==
LOC: ED 19:34 → EDHOLD 23:39 → 5E 10-31 00:12
PROVIDERS: Emergency Medicine Emergency Medical Services; Internal Medicine
PROC: 0D9670Z Drainage of Stomach with Drainage Device, Via Natural or Artificial Opening (ICD-10-PCS; principal; 2017-10-30)
DX: K56.609 Unspecified intestinal obstruction, unspecified as to partial versus complete obstruction (principal); J96.01 Acute respiratory failure with hypoxia; N17.0 Acute kidney failure with tubular necrosis; E44.0 Moderate protein-calorie malnutrition; E11.65 Type 2 diabetes mellitus with hyperglycemia; I42.9 Cardiomyopathy, unspecified; E66.01 Morbid (severe) obesity due to excess calories; I50.22 Chronic systolic (congestive) heart failure; N39.0 Urinary tract infection, site not specified; I11.0 Hypertensive heart disease with heart failure; E78.5 Hyperlipidemia, unspecified; I25.10 Atherosclerotic heart disease of native coronary artery without angina pectoris; Z95.810 Presence of automatic (implantable) cardiac defibrillator; Z79.84 Long term (current) use of oral hypoglycemic drugs; Z85.828 Personal history of other malignant neoplasm of skin; Z88.1 Allergy status to other antibiotic agents; Z88.8 Allergy status to other drugs, medicaments and biological substances; Z79.82 Long term (current) use of aspirin; Z79.899 Other long term (current) drug therapy; Z85.51 Personal history of malignant neoplasm of bladder; Z87.01 Personal history of pneumonia (recurrent); Z95.5 Presence of coronary angioplasty implant and graft; Z82.49 Family history of ischemic heart disease and other diseases of the circulatory system; Z83.3 Family history of diabetes mellitus; Z93.59 Other cystostomy status; Z68.37 Body mass index [BMI] 37.0-37.9, adult

== ENCOUNTER → 2017-11-18 | Outpatient (CLI) | payer MEDICARE ==
[~2017-11-18] MED LIST changes: +CEFTRIAXONE1 GM IJ; +PROPAFENONE HC225 M1 PO
[2017-11-18 10:53] LABS: BASO % 0.2 % (0.0-1.0); EOS # 0.2 10*3/uL (0.0-0.4); EOS % 1.7 % (1.0-4.0); HEMOGLOBIN 13.1 g/dl (14.0-18.0); LYMPH # 1.1 10*3/uL (1.3-4.4); LYMPH % 11.7 % (27.0-41.0); MEAN CELL VOLUME 93.4 fl (80.0-94.0); MEAN CORPUSCULAR HGB 29.8 pg (27.0-31.0); MEAN PLATELET VOLUME 9.9 fl (9.6-12.3); MONO % 10.5 % (3.0-9.0); NEUT % 75.6 % (47.0-73.0); PLATELET COUNT AUTOMATED 262 10*3/uL (130-400); RED BLOOD COUNT 4.39 10*6/uL (4.50-5.90); RED CELL DISTRI WIDTH 15.4 % (0-14.5); WHITE BLOOD COUNT 9.3 10*3/uL (4.8-10.8)
[2017-11-18 11:21] LABS: ALBUMIN 2.9 gm/dl (3.1-4.5); CREATININE 1.62 mg/dL (0.70-1.30); POTASSIUM 4.9 mmol/L (3.5-5.1); TOTAL PROTEIN 7.3 gm/dL (6.4-8.2)
== END | disposition home or self-care (01) ==
LOC: LAB 10:17
PROVIDERS: Urology
DX: R03.0 Elevated blood-pressure reading, without diagnosis of hypertension (principal)

== ENCOUNTER → 2018-01-21 | Outpatient (CLI) | payer MEDICARE ==
[~2018-01-21] MED LIST changes: +CRESTOR10 M1 PO; +LASIX40 MG PO; +METOPROLOL TAR100 M1 PO; +SIMVASTATIN10 MG PO
[2018-01-21 13:03] LABS: BASO % 0.2 % (0.0-1.0); EOS # 0.2 10*3/uL (0.0-0.4); EOS % 1.7 % (1.0-4.0); HEMATOCRIT 41.8 % (42.0-52.0); HEMOGLOBIN 13.7 g/dl (14.0-18.0); LYMPH # 1.1 10*3/uL (1.3-4.4); LYMPH % 11.8 % (27.0-41.0); MEAN CELL VOLUME 89.7 fl (80.0-94.0); MEAN CORPUSCULAR HGB 29.4 pg (27.0-31.0); MEAN CORPUSCULAR HGB CONC 32.8 g/dl (33.0-37.0); MEAN PLATELET VOLUME 10.3 fl (9.6-12.3); MONO # 0.8 10*3/uL (0.1-1.0); MONO % 8.6 % (3.0-9.0); NEUT # 7.3 10*3/uL (2.3-7.9); NEUT % 77.5 % (47.0-73.0); PLATELET COUNT AUTOMATED 236 10*3/uL (130-400); RED BLOOD COUNT 4.66 10*6/uL (4.50-5.90); RED CELL DISTRI WIDTH 14.8 % (0-14.5); WHITE BLOOD COUNT 9.4 10*3/uL (4.8-10.8)
[2018-01-21 13:23] LABS: ALBUMIN 3.1 gm/dl (3.1-4.5); ALKALINE PHOSPHATASE 81 U/L (45-117); BUN 20 mg/dl (7-24); CHLORIDE 101 mmol/L (98-107); CREATININE 1.35 mg/dL (0.70-1.30); POTASSIUM 4.5 mmol/L (3.5-5.1); SGOT/AST 16 IU/L (3-35); SGPT/ALT 25 U/L (12-78); SODIUM 136 mmol/L (136-145); TOTAL PROTEIN 7.8 gm/dL (6.4-8.2)
== END | disposition home or self-care (01) ==
LOC: LAB 12:14 → US 13:00
PROVIDERS: Urology
DX: N13.30 Unspecified hydronephrosis (principal); I10 Essential (primary) hypertension

== ENCOUNTER 2018-02-03 10:30 | Inpatient (IN) | payer MEDICARE ==
[~2018-02-03] VITALS: Ht 172.7 cm; Wt 104.4 kg
--- NOTE | ~2018-02-03 | PROC NOTE ---
[place], [place] PROCEDURE NOTE NAME: ALFREDO COOPER UNIT #: [id number] ROOM: 501 DOCTOR: NISA TOMAS BIRTHDATE: [birth year] DOS: 02/03/2018 MODIFIED BARIUM SWALLOW LOCATION: [facility], room 501, bed 1. DATE OF EVALUATION: 02/03/2018 ORDERING PHYSICIAN: Joshua Logan DO RADIOLOGIST: Dr. Kam. BACKGROUND INFORMATION: The patient is a 77-year-old male who was seen for a modified barium swallow. This test was ordered due to patient's reports of difficulty swallowing and coughing when drinking. The patient was recently admitted to the hospital with pneumonia. His current admission is due to congestive heart failure. Further medical history includes hypertension, NH, CAD, NIDDM, hiatal hernia and NH x 2. The patient is currently n.p.o. until completion of this study. For today's assessment, he was alert and able to follow commands. He was receiving oxygen by nasal cannula with shortness of breath reported. Frequent congested cough was displayed prior to presentation of food items. Oral peripheral examination revealed presence of natural teeth with several missing bottom teeth. Lingual, labial, and buccal skills were within normal limits in terms of strength, range of motion, and coordination. The patient was able to volitionally cough and swallow. METHODS AND MATERIALS USED FOR THE EXAM: The patient was positioned in the lateral plane and exam was viewed under fluoroscopy. The patient was presented with a variety of consistencies to assess swallowing skills including applesauce mixed with barium presented in half teaspoon amounts, barium-coated cookie given in bite size piece and thin liquid barium taken by cup and straw in single and consecutive sip size amounts. ORAL PHASE: The patient achieved adequate labial seal around cup, spoon and straw with no anterior loss. Bolus formation was adequate with all consistencies. Oral transit was mildly delayed with puree and thin liquid and moderately impaired with solid. Tongue to palate contact was within normal limits. Tongue retraction was within normal limits. Velar functioning was within normal limits with no nasal regurgitation. PHARYNGEAL PHASE: Unremarkable. ESOPHAGEAL PHASE: This phase of the swallow was not formally assessed during this exam. IMPRESSIONS AND RECOMMENDATIONS: Based upon assessment results, this 77-year-old patient exhibited a mild oral dysphagia characterized by slow oral transit with all consistencies given. The pharyngeal phase of the swallow was within normal limits with no penetration, aspiration or residue. Recommend a regular diet and thin liquids. Recommend alternating consistencies to help [place], [place] PROCEDURE NOTE NAME: ALFREDO COOPER UNIT #: [id number] ROOM: [facility] DOCTOR: NISA TOMAS BIRTHDATE: [birth year] improve oral transit. Short term followup therapy is recommended focusing on education and adherence to safe swallow precautions. Results and recommendations were shared with the patient and his nurse and they verbalized understanding. Thank you very much for this referral. Should you have any questions regarding this patient, please contact the speech pathologist at [phone]. NISA TOMAS CM:PROCNOTE:PROCEDURE NOTE [id number] NISA TOMAS
--- NOTE | ~2018-02-03 | CON ---
[place], [place] REPORT OF CONSULTATION NAME: [facility]OPER [id number] UNIT #: [id number] ROOM: 501 DOCTOR: KAITLYNN ROD[facility]IGUEZ [facility] [birth year] DOS: 02/04/2018 CARDIOLOGY CONSULTATION HISTORY OF PRESENT ILLNESS: The patient came in with history of progressive dyspnea, peripheral edema, came to the Emergency Room and these symptoms are progressively increasing over the period where the patient was on oxygen before, history of coronary artery disease, left ventricular dysfunction and peripheral edema and congestive heart failure. He has edema in lower extremities, left greater than the right. He had prostate surgery done by the urologist in the past. Chest x-ray shows mild chronic congestive heart failure, bilateral pleural effusion, larger on the right, minimal associated atelectasis, chronic diverticulosis without acute diverticulitis on the CT of the abdomen and pelvis. The hospitalist did call us for consultation for congestive heart failure symptoms noted in the patient for a long time. The patient denies syncope or presyncope. The patient has a previous history of bladder cancer, coronary artery disease, diabetes mellitus, dyslipidemia, diverticulosis - no diverticulitis, morbid obesity, history of myocardial infarction, neuropathy, oxygen dependency, prostate cancer, chronic systolic congestive heart failure, left ventricular dysfunction. PHYSICAL EXAMINATION: VITAL SIGNS: Stable. Blood pressure is 112/60 and heart rate is 70 pacing rhythm. Afebrile. GENERAL: Alert, not in any acute distress noted. The patient has a positive outlook. HEAD, EYES, EARS, NOSE, AND THROAT: Unremarkable. CARDIOPULMONARY: As described. GASTROINTESTINAL: As described. GENITOURINARY: As described. NEUROLOGICAL: Neuropathy. ENDOCRINE: Diabetes mellitus. LUNGS: Diminished breath sounds at bases. Basilar rales. HEART: S1, S2 regular, ventricular gallop. ABDOMEN: Soft. SKIN: Color is good, not diaphoretic. No cyanosis. EXTREMITIES: Peripheral edema noted. RECTAL: Deferred, unrelated. GENITAL: Deferred, unrelated. LABORATORY DATA: Renal function is good. GFR is good. Creatinine is 1.29 actually better. He used to be a little bit higher in the past. Hemoglobin is 13.2. DIAGNOSES: Acute on chronic congestive heart failure, coronary artery disease, hypertension, diabetes, hypertensive cardiovascular disease. PLAN: The patient is already on beta blocking agents, adjust the medications further, cut back on the diltiazem because that could be partly responsible and [place], [place] REPORT OF CONSULTATION NAME: ALFREDO COOPER UNIT #: [id number] ROOM: [facility] DOCTOR: KAITLYNN RODRIGUEZ [facility] BIRTHDATE: [birth year] since heart rate is good pacing rhythm predominantly and eventually get rid of the diltiazem and continue the beta blocking agent and add nitrates. Continue the diuretics. Adjust the meds and I will follow the patient and we will continue the current management, cut back eventually on the calcium channel blocking agents. Thank you very much for asking me to see the patient. I will follow the patient. JENNIFER CALDERÓN MD CM:CONSTR:REPORT OF CONSULTATION 1557 02/22/18 0800 interface
--- NOTE | ~2018-02-03 | EKG ---
[place], [place] ELECTROCARDIOGRAM REPORT NAME: ALFREDO COOPER UNIT #: [id number] ROOM: DOCTOR: EPIPHANY DRAFT REPORT BIRTHDATE: [birth year] [facility] Test Date: 2018-02-03 Test Time: 11:14:50 Pat Name: ALFREDO COOPER Department: Room: Gender: Digital Media Manager: Carissa Rousseau : 1940 Requested By: CHACE MEADOWS PA-C Order Number: [id number] Reading MD: Arpit Seo MD Measurements Intervals [place] Rate: 70 P: HI: QRS: 203 QRSD: 157 T: 90 QT: 472 QTc: 510 Interpretive Statements Afib/flutter and ventricular-paced rhythm No further analysis attempted due to paced rhythm Compared to ECG 10/30/2017 20:06:53 AV dual-paced complex(es) or rhythm no longer present Only ventricular electronic pacing. Electronically Signed On 02-03-2018 10:03:08 PDT by Arpit Seo MD CM:EKGRPT:ELECTROCARDIOGRAM REPORT [id number] CHACE MEADOWS PA-C EPIPHANY DRAFT REPORT CHACE MEADOWS PA-C
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
[~2018-02-03 10:30] MED LIST changes: -CRESTOR10 M1 PO; -LASIX40 MG PO; -METOPROLOL TAR100 M1 PO; -SIMVASTATIN10 MG PO
[2018-02-03 10:32] VITALS: BP 113/53
[2018-02-03 11:28] LABS: BASO % 0.2 % (0.0-1.0); EOS # 0.1 10*3/uL (0.0-0.4); EOS % 0.8 % (1.0-4.0); HEMATOCRIT 42.2 % (42.0-52.0); HEMOGLOBIN 13.2 g/dl (14.0-18.0); LYMPH # 0.8 10*3/uL (1.3-4.4); LYMPH % 8.6 % (27.0-41.0); MEAN CELL VOLUME 93.6 fl (80.0-94.0); MEAN CORPUSCULAR HGB 29.3 pg (27.0-31.0); MEAN CORPUSCULAR HGB CONC 31.3 g/dl (33.0-37.0); MEAN PLATELET VOLUME 9.6 fl (9.6-12.3); MONO # 0.6 10*3/uL (0.1-1.0); MONO % 7.1 % (3.0-9.0); NEUT # 7.4 10*3/uL (2.3-7.9); NEUT % 83.1 % (47.0-73.0); PLATELET COUNT AUTOMATED 240 10*3/uL (130-400); RED BLOOD COUNT 4.51 10*6/uL (4.50-5.90); RED CELL DISTRI WIDTH 15.2 % (0-14.5); WHITE BLOOD COUNT 8.9 10*3/uL (4.8-10.8)
[2018-02-03 11:35] LABS: INTERNATIONAL NORM RATIO 1.1 (2.0-3.5)
[2018-02-03 11:44] LABS: ALBUMIN 2.6 gm/dl (3.1-4.5); ALKALINE PHOSPHATASE 87 U/L (45-117); BUN 25 mg/dl (7-24); CHLORIDE 100 mmol/L (98-107); CREATININE 1.29 mg/dL (0.70-1.30); LIPASE 175 U/L (73-393); POTASSIUM 4.8 mmol/L (3.5-5.1); SGOT/AST 14 IU/L (3-35); SGPT/ALT 23 U/L (12-78); SODIUM 136 mmol/L (136-145); TOTAL PROTEIN 7.6 gm/dL (6.4-8.2)
[2018-02-03 11:56] LABS: TROPONIN I < 0.015 ng/ml (<0.045)
[2018-02-03 13:10] LABS: BILIRUBIN NEGATIVE (NEGATIVE); BLOOD TRACE-LYSED (NEGATIVE); CLARITY CLOUDY (CLEAR); COLOR YELLOW (YELLOW); GLUCOSE NEGATIVE (NEGATIVE); KETONE NEGATIVE (NEGATIVE); LEUKO ESTERASE 1+ (NEGATIVE); NITRITE NEGATIVE (NEGATIVE); UROBILINOGEN 0.2 E.U./dl (0.2-1.0)
[2018-02-03 13:21] LABS: BACTERIA 3+; WBC 51-100 wbc/hpf (0-5)
[2018-02-03 13:24] LABS: YEAST 2+
[2018-02-03 13:31] VITALS: BP 112/60
[2018-02-03 14:00] VITALS: BP 108/61
[2018-02-03] MEDS ORDERED: ENTRESTO 49 MG1 EACH PO (14:09)
[2018-02-03] MEDS ORDERED: CRESTOR10 M1 PO (14:11)
[2018-02-03] MEDS ORDERED: FAMOTIDINE40 MG PO (14:13)
[2018-02-03] MEDS ORDERED: METOPROLOL TART50 M1 PO (14:14)
[2018-02-03 16:00] VITALS: BP 138/77
[2018-02-03 20:00] VITALS: BP 119/61
[2018-02-04] VITALS: BP 109/54
[2018-02-04] MEDS ORDERED: METOPROLOL TAR100 M1 PO (02:41)
[2018-02-04] MEDS ORDERED: SIMVASTATIN10 MG PO (02:42)
[2018-02-04] MEDS ORDERED: LISINOPRIL5 MG PO (02:44)
[2018-02-04 07:08] LABS: BASO % 0.3 % (0.0-1.0); EOS # 0.1 10*3/uL (0.0-0.4); EOS % 1.8 % (1.0-4.0); HEMATOCRIT 42.9 % (42.0-52.0); LYMPH # 0.7 10*3/uL (1.3-4.4); LYMPH % 8.8 % (27.0-41.0); MEAN CELL VOLUME 95.3 fl (80.0-94.0); MEAN CORPUSCULAR HGB 28.9 pg (27.0-31.0); MEAN CORPUSCULAR HGB CONC 30.3 g/dl (33.0-37.0); MEAN PLATELET VOLUME 9.7 fl (9.6-12.3); MONO # 0.6 10*3/uL (0.1-1.0); MONO % 8.4 % (3.0-9.0); NEUT # 6.2 10*3/uL (2.3-7.9); NEUT % 80.4 % (47.0-73.0); PLATELET COUNT AUTOMATED 215 10*3/uL (130-400); RED CELL DISTRI WIDTH 15.2 % (0-14.5); WHITE BLOOD COUNT 7.6 10*3/uL (4.8-10.8)
[2018-02-04 07:41] LABS: ACT PARTIAL THROMBO TIME 23.5 SECONDS (20.8-31.5)
[2018-02-04 07:45] LABS: ALBUMIN 2.8 gm/dl (3.1-4.5); BUN 22 mg/dl (7-24); CHLORIDE 100 mmol/L (98-107); CHOLESTEROL 115 mg/dL (<200); CREATININE 1.08 mg/dL (0.70-1.30); FREE T4 0.83 ng/dl (0.76-1.46); HDL CHOLESTEROL 30 mg/dl (40-60); LDL CHOLESTEROL 56 mg/dL (9-159); PHOSPHOROUS 4.9 mg/dL (2.5-4.9); POTASSIUM 4.5 mmol/L (3.5-5.1); SGPT/ALT 28 U/L (12-78); SODIUM 138 mmol/L (136-145); TRIGLYCERIDES 146 mg/dl (<150); VLDL CHOLESTEROL 29 mg/dL (6-40)
[2018-02-04 07:50] LABS: ALKALINE PHOSPHATASE 93 U/L (45-117); SGOT/AST 22 IU/L (3-35); TOTAL PROTEIN 7.4 gm/dL (6.4-8.2)
[2018-02-04 08:00] VITALS: BP 108/54
[2018-02-04 08:08] LABS: VITAMIN D, 25-HYDROXY 29.6 ng/mL (30-100)
[2018-02-04 12:00] VITALS: BP 115/60
[2018-02-04 16:00] VITALS: BP 90/44; BP 96/48
[2018-02-04 20:00] VITALS: BP 91/60
[2018-02-05] VITALS (7 sets, daily range): BP systolic 74–99; BP diastolic 40–70
[2018-02-05 06:52] LABS: BASO % 0.5 % (0.0-1.0); EOS # 0.2 10*3/uL (0.0-0.4); EOS % 2.9 % (1.0-4.0); HEMATOCRIT 39.2 % (42.0-52.0); HEMOGLOBIN 12.3 g/dl (14.0-18.0); MEAN CELL VOLUME 92.9 fl (80.0-94.0); MEAN CORPUSCULAR HGB 29.1 pg (27.0-31.0); MEAN CORPUSCULAR HGB CONC 31.4 g/dl (33.0-37.0); MEAN PLATELET VOLUME 9.2 fl (9.6-12.3); MONO # 0.9 10*3/uL (0.1-1.0); MONO % 11.3 % (3.0-9.0); NEUT # 5.5 10*3/uL (2.3-7.9); NEUT % 71.9 % (47.0-73.0); PLATELET COUNT AUTOMATED 205 10*3/uL (130-400); RED BLOOD COUNT 4.22 10*6/uL (4.50-5.90); RED CELL DISTRI WIDTH 15.3 % (0-14.5); WHITE BLOOD COUNT 7.6 10*3/uL (4.8-10.8)
[2018-02-05 07:10] LABS: BUN 29 mg/dl (7-24); CHLORIDE 98 mmol/L (98-107); CREATININE 1.15 mg/dL (0.70-1.30); POTASSIUM 4.5 mmol/L (3.5-5.1); SODIUM 138 mmol/L (136-145)
[2018-02-06] VITALS: BP 85/40
[2018-02-06 05:57] LABS: BASO % 0.4 % (0.0-1.0); EOS # 0.3 10*3/uL (0.0-0.4); EOS % 3.5 % (1.0-4.0); HEMATOCRIT 37.6 % (42.0-52.0); HEMOGLOBIN 11.9 g/dl (14.0-18.0); MEAN CELL VOLUME 92.8 fl (80.0-94.0); MEAN CORPUSCULAR HGB 29.4 pg (27.0-31.0); MEAN CORPUSCULAR HGB CONC 31.6 g/dl (33.0-37.0); MEAN PLATELET VOLUME 9.6 fl (9.6-12.3); MONO # 0.7 10*3/uL (0.1-1.0); MONO % 9.2 % (3.0-9.0); NEUT # 5.1 10*3/uL (2.3-7.9); NEUT % 72.3 % (47.0-73.0); PLATELET COUNT AUTOMATED 189 10*3/uL (130-400); RED BLOOD COUNT 4.05 10*6/uL (4.50-5.90); RED CELL DISTRI WIDTH 15.2 % (0-14.5); WHITE BLOOD COUNT 7.1 10*3/uL (4.8-10.8)
[2018-02-06 06:00] VITALS: BP 96/56
[2018-02-06 06:16] LABS: BUN 31 mg/dl (7-24); CHLORIDE 96 mmol/L (98-107); CREATININE 1.11 mg/dL (0.70-1.30); POTASSIUM 4.2 mmol/L (3.5-5.1); SODIUM 137 mmol/L (136-145)
[2018-02-06 08:01] VITALS: BP 96/54
[2018-02-06 12:00] VITALS: BP 109/60
[2018-02-06 16:00] VITALS: BP 100/54
[2018-02-06 20:00] VITALS: BP 108/59
[2018-02-07] VITALS: BP 106/62; BP 108/59
[2018-02-07 05:58] LABS: BASO % 0.4 % (0.0-1.0); EOS # 0.2 10*3/uL (0.0-0.4); EOS % 3.8 % (1.0-4.0); HEMATOCRIT 36.4 % (42.0-52.0); HEMOGLOBIN 11.4 g/dl (14.0-18.0); LYMPH # 0.8 10*3/uL (1.3-4.4); LYMPH % 15.3 % (27.0-41.0); MEAN CELL VOLUME 93.6 fl (80.0-94.0); MEAN CORPUSCULAR HGB 29.3 pg (27.0-31.0); MEAN CORPUSCULAR HGB CONC 31.3 g/dl (33.0-37.0); MEAN PLATELET VOLUME 9.7 fl (9.6-12.3); MONO # 0.6 10*3/uL (0.1-1.0); MONO % 11.1 % (3.0-9.0); NEUT # 3.8 10*3/uL (2.3-7.9); NEUT % 68.9 % (47.0-73.0); PLATELET COUNT AUTOMATED 186 10*3/uL (130-400); RED BLOOD COUNT 3.89 10*6/uL (4.50-5.90); RED CELL DISTRI WIDTH 15.1 % (0-14.5); WHITE BLOOD COUNT 5.5 10*3/uL (4.8-10.8)
[2018-02-07 06:14] LABS: BUN 30 mg/dl (7-24); CHLORIDE 97 mmol/L (98-107); CREATININE 1.08 mg/dL (0.70-1.30); POTASSIUM 4.3 mmol/L (3.5-5.1); SODIUM 136 mmol/L (136-145)
[2018-02-07 08:00] VITALS: BP 110/84
[2018-02-07] MEDS ORDERED: CIPRO500 MG PO (08:34)
[2018-02-07] MEDS ORDERED: LASIX40 MG PO (08:34)
== END 2018-02-07 11:15 | disposition home or self-care (01) | DRG 291 ==
LOC: ED 10:30 → EDHOLD 13:21 → 5E 13:21
PROVIDERS: Internal Medicine; Physician Assistant; Student in an Organized Health Care Education/Training Program
PROC: BD11YZZ Fluoroscopy of Esophagus using Other Contrast (ICD-10-PCS; principal; 2018-02-03)
PROC: BD1BYZZ Fluoroscopy of Mouth/Oropharynx using Other Contrast (ICD-10-PCS; principal; 2018-02-03)
DX: I11.0 Hypertensive heart disease with heart failure (principal); J96.01 Acute respiratory failure with hypoxia; E43 Unspecified severe protein-calorie malnutrition; E87.2 Acidosis; I25.810 Atherosclerosis of coronary artery bypass graft(s) without angina pectoris; J98.11 Atelectasis; Z87.891 Personal history of nicotine dependence; I50.43 Acute on chronic combined systolic (congestive) and diastolic (congestive) heart failure; M26.609 Unspecified temporomandibular joint disorder, unspecified side; C67.9 Malignant neoplasm of bladder, unspecified; Z99.81 Dependence on supplemental oxygen; K57.30 Diverticulosis of large intestine without perforation or abscess without bleeding; E83.41 Hypermagnesemia; R10.13 Epigastric pain; E78.5 Hyperlipidemia, unspecified; E66.01 Morbid (severe) obesity due to excess calories; E11.65 Type 2 diabetes mellitus with hyperglycemia; D72.810 Lymphocytopenia; F20.9 Schizophrenia, unspecified; F29 Unspecified psychosis not due to a substance or known physiological condition; R82.71 Bacteriuria; M12.819 Other specific arthropathies, not elsewhere classified, unspecified shoulder; R31.29 Other microscopic hematuria; R13.10 Dysphagia, unspecified; E11.42 Type 2 diabetes mellitus with diabetic polyneuropathy; Z93.59 Other cystostomy status; Z68.36 Body mass index [BMI] 36.0-36.9, adult; Z88.1 Allergy status to other antibiotic agents; Z88.8 Allergy status to other drugs, medicaments and biological substances; Z95.5 Presence of coronary angioplasty implant and graft; Z95.0 Presence of cardiac pacemaker; Z82.49 Family history of ischemic heart disease and other diseases of the circulatory system; Z83.3 Family history of diabetes mellitus; I25.2 Old myocardial infarction

== ENCOUNTER → 2018-03-26 | Outpatient (CLI) | payer MEDICARE ==
[~2018-03-26] MED LIST changes: +CRESTOR10 M1 PO; +LASIX40 MG PO; +METOPROLOL TAR100 M1 PO; +SIMVASTATIN10 MG PO
[2018-03-26 09:09] LABS: BILIRUBIN NEGATIVE (NEGATIVE); BLOOD NEGATIVE (NEGATIVE); CLARITY CLOUDY (CLEAR); COLOR YELLOW (YELLOW); GLUCOSE NEGATIVE (NEGATIVE); KETONE NEGATIVE (NEGATIVE); LEUKO ESTERASE NEGATIVE (NEGATIVE); NITRITE POSITIVE (NEGATIVE); UROBILINOGEN 0.2 E.U./dl (0.2-1.0)
[2018-03-26 09:28] LABS: BASO % 0.4 % (0.0-1.0); EOS # 0.1 10*3/uL (0.0-0.4); EOS % 0.9 % (1.0-4.0); HEMATOCRIT 44.1 % (42.0-52.0); HEMOGLOBIN 13.8 g/dl (14.0-18.0); LYMPH # 0.7 10*3/uL (1.3-4.4); LYMPH % 8.5 % (27.0-41.0); MEAN CELL VOLUME 92.6 fl (80.0-94.0); MEAN CORPUSCULAR HGB CONC 31.3 g/dl (33.0-37.0); MEAN PLATELET VOLUME 9.9 fl (9.6-12.3); MONO # 0.6 10*3/uL (0.1-1.0); MONO % 8.1 % (3.0-9.0); NEUT # 6.3 10*3/uL (2.3-7.9); NEUT % 81.7 % (47.0-73.0); PLATELET COUNT AUTOMATED 234 10*3/uL (130-400); RED BLOOD COUNT 4.76 10*6/uL (4.50-5.90); RED CELL DISTRI WIDTH 15.1 % (0-14.5); WHITE BLOOD COUNT 7.7 10*3/uL (4.8-10.8)
[2018-03-26 09:45] LABS: ALKALINE PHOSPHATASE 105 U/L (45-117); BUN 14 mg/dl (7-24); CHLORIDE 104 mmol/L (98-107); CREATININE 1.29 mg/dL (0.70-1.30); POTASSIUM 4.5 mmol/L (3.5-5.1); SGOT/AST 20 IU/L (3-35); SGPT/ALT 26 U/L (12-78); SODIUM 138 mmol/L (136-145); TOTAL PROTEIN 7.7 gm/dL (6.4-8.2)
[2018-03-26 10:08] LABS: WBC 21-30 wbc/hpf (0-5)
[2018-03-26 10:09] LABS: BACTERIA 3+
== END | disposition home or self-care (01) ==
LOC: LAB 08:21 → NM 09:00
PROVIDERS: Urology
DX: R31.9 Hematuria, unspecified (principal); R10.9 Unspecified abdominal pain

== ENCOUNTER → 2018-04-16 | Outpatient (CLI) | payer MEDICARE | END | disposition home or self-care (01) | LOC: CT 11:48 | DX: N50.82 Scrotal pain (principal); I77.89 Other specified disorders of arteries and arterioles ==

== ENCOUNTER 2018-09-10 14:48 | Emergency (ER) | payer MEDICARE ==
[~2018-09-10] VITALS: Ht 172.7 cm; Wt 113.4 kg
[~2018-09-10 14:48] MED LIST changes: +AMINOPHYLLIN200 MG PO; +COLACE100 MG PO; +Lanoxin PO; +METOLAZONE2.5 MG PO; +METOPROLOL SUCC25 M2 PO; +PAIN RELIEVER650 MG PO; +POTASSIUM CHLO10 MEQ PO; +XARE20MG PO
[2018-09-10 16:18] VITALS: BP 111/60
[2018-09-10] MEDS ORDERED: CEFADROXIL500 M1 PO (17:45)
== END 2018-09-10 18:26 | disposition home or self-care (01) ==
LOC: ED 14:48
DX: S62.641A Nondisplaced fracture of proximal phalanx of left index finger, initial encounter for closed fracture (principal); S63.283A Dislocation of proximal interphalangeal joint of left middle finger, initial encounter; S41.112A Laceration without foreign body of left upper arm, initial encounter; S00.01XA Abrasion of scalp, initial encounter; Z98.890 Other specified postprocedural states; Z95.1 Presence of aortocoronary bypass graft; Z95.0 Presence of cardiac pacemaker; Z79.82 Long term (current) use of aspirin; Z79.899 Other long term (current) drug therapy; Z88.1 Allergy status to other antibiotic agents; Z88.8 Allergy status to other drugs, medicaments and biological substances; W01.0XXA Fall on same level from slipping, tripping and stumbling without subsequent striking against object, initial encounter; Y93.89 Activity, other specified; Y92.89 Other specified places as the place of occurrence of the external cause; Y99.9 Unspecified external cause status

== ENCOUNTER → 2018-09-28 | Outpatient (CLI) | payer MEDICARE ==
[~2018-09-28] MED LIST changes: +CEFADROXIL500 M1 PO
== END | disposition home or self-care (01) ==
LOC: CT 10:07
DX: M25.552 Pain in left hip (principal); D48.1 Neoplasm of uncertain behavior of connective and other soft tissue

== ENCOUNTER → 2018-10-13 | Outpatient (CLI) | payer MEDICARE ==
[2018-10-13 14:37] LABS: BASO % 0.6 % (0.0-1.0); EOS # 0.2 10*3/uL (0.0-0.4); EOS % 3.3 % (1.0-4.0); HEMATOCRIT 39.2 % (42.0-52.0); HEMOGLOBIN 12.4 g/dl (14.0-18.0); LYMPH # 1.1 10*3/uL (1.3-4.4); LYMPH % 15.4 % (27.0-41.0); MEAN CELL VOLUME 93.6 fl (80.0-94.0); MEAN CORPUSCULAR HGB 29.6 pg (27.0-31.0); MEAN CORPUSCULAR HGB CONC 31.6 g/dl (33.0-37.0); MEAN PLATELET VOLUME 10.1 fl (9.6-12.3); MONO # 0.7 10*3/uL (0.1-1.0); MONO % 9.4 % (3.0-9.0); NEUT # 5.1 10*3/uL (2.3-7.9); NEUT % 70.9 % (47.0-73.0); PLATELET COUNT AUTOMATED 219 10*3/uL (130-400); RED BLOOD COUNT 4.19 10*6/uL (4.50-5.90); RED CELL DISTRI WIDTH 18.3 % (0-14.5); WHITE BLOOD COUNT 7.2 10*3/uL (4.8-10.8)
[2018-10-13 15:07] LABS: ALKALINE PHOSPHATASE 104 U/L (45-117); BUN 15 mg/dl (7-24); CHLORIDE 105 mmol/L (98-107); CREATININE 1.19 mg/dL (0.70-1.30); POTASSIUM 4.2 mmol/L (3.5-5.1); SGOT/AST 42 IU/L (3-35); SGPT/ALT 29 U/L (12-78); SODIUM 139 mmol/L (136-145); TOTAL PROTEIN 8.5 gm/dL (6.4-8.2)
== END | disposition home or self-care (01) ==
LOC: LAB 13:34
PROVIDERS: Nurse Practitioner Family
DX: I10 Essential (primary) hypertension (principal)

== ENCOUNTER → 2018-12-09 | Outpatient (CLI) | payer MEDICARE | END | disposition home or self-care (01) | LOC: NM 01:01 | DX: C67.9 Malignant neoplasm of bladder, unspecified (principal) ==

== ENCOUNTER 2019-03-15 11:10 | Inpatient (IN) | payer MEDICARE ==
[~2019-03-15] VITALS: Ht 175.3 cm; Wt 82.6 kg
[2019-03-15] VITALS (7 sets, daily range): BP systolic 014–119; BP diastolic 34–64
[2019-03-15 11:50] LABS: BASO % 0.2 % (0.0-1.0); EOS # 0.1 10*3/uL (0.0-0.4); EOS % 1.1 % (1.0-4.0); HEMATOCRIT 35.7 % (42.0-52.0); LYMPH # 0.9 10*3/uL (1.3-4.4); LYMPH % 8.7 % (27.0-41.0); MEAN CELL VOLUME 86.2 fl (80.0-94.0); MEAN CORPUSCULAR HGB 26.6 pg (27.0-31.0); MEAN CORPUSCULAR HGB CONC 30.8 g/dl (33.0-37.0); MEAN PLATELET VOLUME 9.1 fl (9.6-12.3); MONO # 0.9 10*3/uL (0.1-1.0); MONO % 8.9 % (3.0-9.0); NEUT % 80.7 % (47.0-73.0); PLATELET COUNT AUTOMATED 307 10*3/uL (130-400); RED BLOOD COUNT 4.14 10*6/uL (4.50-5.90); RED CELL DISTRI WIDTH 15.6 % (0-14.5)
[2019-03-15 12:05] LABS: INTERNATIONAL NORM RATIO 1.2 (2.0-3.5)
[2019-03-15 12:07] LABS: ALBUMIN 2.2 gm/dl (3.1-4.5); ALKALINE PHOSPHATASE 126 U/L (45-117); BUN 23 mg/dl (7-24); CHLORIDE 103 mmol/L (98-107); CREATININE 1.02 mg/dL (0.70-1.30); SGOT/AST 26 IU/L (3-35); SGPT/ALT 19 U/L (12-78); SODIUM 135 mmol/L (136-145); TOTAL PROTEIN 7.6 gm/dL (6.4-8.2)
[2019-03-15 12:09] LABS: TROPONIN I < 0.015 ng/ml (<0.045)
--- NOTE | 2019-03-15 12:11 | NUR ---
NOTIFIED BY LAB PTS LACTIC ACID 2.3.DORI SOMMERS NOTIFIED.
[2019-03-15 12:29] LABS: BILIRUBIN NEGATIVE (NEGATIVE); BLOOD 1+ (NEGATIVE); CLARITY SL CLOUDY (CLEAR); COLOR YELLOW (YELLOW); GLUCOSE NEGATIVE (NEGATIVE); KETONE NEGATIVE (NEGATIVE); LEUKO ESTERASE 3+ (NEGATIVE); NITRITE POSITIVE (NEGATIVE); SPECIFIC GRAVITY 1.015 (1.005-1.030); UROBILINOGEN 0.2 E.U./dl (0.2-1.0)
[2019-03-15 12:43] LABS: BACTERIA 3+; WBC TNTC wbc/hpf (0-5)
--- NOTE | 2019-03-15 14:50 | NUR ---
A 78, admitted to 5E, under the services of JINNY Mahmood DO with a diagnosis of NONHEALING WOUND LEFT GROIN. Chief complaint is INFECTED WOUND TO LEFT GROIN. Patient arrived via wheel chair from ER. Initial assessment completed. Vital signs taken and recorded. JINNY MAHMOOD DO notified of admission to the unit. Orders received. See assessment for past medical history, medications and allergies. Patient and/or family oriented to unit. Clothing/patient valuable form completed. JOVANNI HORTON
[2019-03-15] MEDS ORDERED: METOPROLOL SUCC50 M1 PO (15:11)
[2019-03-15] MEDS ORDERED: DIGOX125 MCG PO (15:13)
[2019-03-15] MEDS ORDERED: CO Q-10200 MG PO (15:14)
[2019-03-15] MEDS ORDERED: DOXYCYCLINE100 M3 PO (15:15)
[2019-03-15] MEDS ORDERED: LASIX40 MG PO (15:17)
--- NOTE | 2019-03-15 15:28 | NUR ---
NOTIFIED OF NEW CONSULT ORDER.
--- NOTE | 2019-03-15 17:03 | NUR ---
ANSWERING SERVICE NOTIFIED OF NEW CONSULT.
--- NOTE | 2019-03-15 19:31 | NUR ---
medicated with prn norco for c/o pain rated 7/10 on a 0/10 pain scale. will monitor
--- NOTE | 2019-03-15 22:05 | NUR ---
DR BARAHONA AWARE OF PATIENT C/O INDEGESTION, ORDER TAKEN
--- NOTE | 2019-03-15 22:18 | NUR ---
MEDICATED WITH PRN TUMS FOR C/O INDEGESTION, WILL MONITOR
[2019-03-16] VITALS: BP 99/58
--- NOTE | 2019-03-16 03:59 | NUR ---
24 HR chart check completed.
--- NOTE | 2019-03-16 04:26 | NUR ---
MEDICATED WITH PRN ZOFRAN FOR C/O NAUSEA
--- NOTE | 2019-03-16 05:46 | NUR ---
ALFREDO COOPER [id number] Please refer to the physician's history and physical for past medical history, comorbid conditions, and allergies. Diagnosis: NONHEALING OPEN WOUND OF GROIN FAILURE OF Jerman Score: 18,AT RISK WOUND DESCRIPTIONS: Wound Number: 1 Location of the wound: left upper medial thigh Type of wound: surgical Thickness: Partial Size: 0.9cm x 0.9cm x 0.1cm Tunneling: none Undermining: none Sinus Tract: none Presence of Exudate: Serosanguineous Amount: Heavy Color: Red Odor: Foul Periwound Skin Appearance: Edema Wound edges: approximated Pain (associated with wound): tender at time of assessment How does patient state this happened? pt stated that he was following in [place] and will not continue to follow up there. Patient stated he had surgery on January 03 with and a week before that it was I&D and is unsure who did the I&D because the pain was going into his testicles. He stated he followed with Dr. Mcdermott and . Wound Number: 2 Location of the wound: right buttocks Type of wound: MASD Thickness: Partial Size: 4.5cm x 1.5cm x 0.1cm Tunneling: none Undermining: none Sinus Tract: none Presence of Exudate: Serosanguineous Amount: Light Color: Red Odor: None Periwound Skin Appearance: Normal Wound edges: approximated Pain (associated with wound): none at time of assessment How does patient state this happened? pt stated that the drainage is so much that he is constantly changing his clothing and is wet from the drainage Wound Number: 3 Location of the wound: left buttocks Type of wound: MASD Thickness: Partial Size: 5.5cm x 2.5cm x 0.1cm Tunneling: none Undermining: none Sinus Tract: none Presence of Exudate: Serosanguineous Amount: Light Color: Red Odor: None Periwound Skin Appearance: Normal Wound edges: approximated Pain (associated with wound): none at time of assessment How does patient state this happened? pt stated that the drainage is so much that he is constantly changing his clothing and is wet from the drainage Wound Number: 4 Location of the wound: intergluteal cleft Type of wound: MASD Thickness: Partial Size: 2.0cm x 0.5cm x 0.1cm Tunneling: none Undermining: none Sinus Tract: none Presence of Exudate: Serosanguineous Amount: Light Color: Red Odor: None Periwound Skin Appearance: Normal Wound edges: approximated Pain (associated with wound): none at time of assessment How does patient state this happened? pt stated that the drainage is so much that he is constantly changing his clothing and is wet from the drainage Wound Number: 5 Location of the wound: right groin Type of wound: fungal Thickness: Partial Size: 11.5cm x 1.0cm x 0.1cm Tunneling: none Undermining: none Sinus Tract: none Presence of Exudate: Serous Amount: Light Color: Red Odor: None Periwound Skin Appearance: Normal Wound edges: approximated Pain (associated with wound): none at time of assessment How does patient state this happened? pt stated he gets this rash on and off Surface the patient is resting on: Isoflex SKIN PREVENTION RECOMMENDATION: 1. Pressure redistribution support surface as appropriate 2. Elevate heels 3. Remove boots/TEDS every shift and reapply 4. Head of bed 30 degrees as tolerated 5. Assess nutrition and hydration 6. Manage moisture 7. Avoid the use of containment devices while in bed 8. Use absorptive products on surfaces limit layers of linens on bed 9. Turn and reposition every 1-2 hours in bed and every 1 hour in chair as tolerated 10. Weight shifts every 15 minutes while up in chair 11. Offloading with pillows or device to keep heels elevated off bed 12. Monitor skin at least every shift 13. Inspect under medical devices twice a day WOUND TREATMENT RECOMMENDATIONS: Cleanse right groin with soap and water and apply nystatin powder every 8 hours Cleanse right buttocks, left buttocks, intergluteal cleft with soap and water and apply calazime every shift and prn for soiling. Cleanse right upper thigh with nss and apply dsd every shift and prn for soiling. Wheelchair cushion when oob. Infectious disease and general surger is on consult. Imaging studies to left upper thigh.
[2019-03-16 06:47] LABS: BASO % 0.2 % (0.0-1.0); EOS # 0.2 10*3/uL (0.0-0.4); EOS % 1.8 % (1.0-4.0); HEMATOCRIT 34.7 % (42.0-52.0); HEMOGLOBIN 10.7 g/dl (14.0-18.0); LYMPH # 0.8 10*3/uL (1.3-4.4); LYMPH % 9.4 % (27.0-41.0); MEAN CELL VOLUME 86.1 fl (80.0-94.0); MEAN CORPUSCULAR HGB 26.6 pg (27.0-31.0); MEAN CORPUSCULAR HGB CONC 30.8 g/dl (33.0-37.0); MEAN PLATELET VOLUME 9.6 fl (9.6-12.3); MONO # 0.8 10*3/uL (0.1-1.0); MONO % 9.1 % (3.0-9.0); NEUT # 6.7 10*3/uL (2.3-7.9); NEUT % 78.9 % (47.0-73.0); PLATELET COUNT AUTOMATED 301 10*3/uL (130-400); RED BLOOD COUNT 4.03 10*6/uL (4.50-5.90); RED CELL DISTRI WIDTH 15.6 % (0-14.5); WHITE BLOOD COUNT 8.5 10*3/uL (4.8-10.8)
[2019-03-16 06:58] LABS: BUN 19 mg/dl (7-24); CHLORIDE 101 mmol/L (98-107); CREATININE 0.89 mg/dL (0.70-1.30); PHOSPHOROUS 4.3 mg/dL (2.5-4.9); SODIUM 137 mmol/L (136-145)
[2019-03-16 08:00] VITALS: BP 101/48
--- NOTE | 2019-03-16 08:34 | NUR ---
Follow up with Dr. Corona in wound care clinic on 03/21/19 at 2:00pm, call [phone] with any concerns
--- NOTE | 2019-03-16 08:50 | NUR ---
Dr. Pike notified of wound care recommendations.
--- NOTE | 2019-03-16 09:29 | NUR ---
NURSE PRACTITIONER PHYSICIANS ASSISTANT received notice from Drum Saw Operator Neyda that the patient would like to be referred to [facility]. NURSE PRACTITIONER PHYSICIANS ASSISTANT faxed referral to [facility] [place]. Patient will require a 3 night stay and will need PT Eval to complete referral. NURSE PRACTITIONER PHYSICIANS ASSISTANT spoke with RN Hospitalist Coordinator Molly about obtaining an order for PT Eval. -HERMAN Hays
--- NOTE | 2019-03-16 11:11 | NUR ---
CARDING SUPERVISOR received notice from [facility] that they are unable to accept the patient. HERMAN spoke with the patient who stated he would like to be referred to [facility] and then [facility] if [facility] cannot accept him. HERMAN will notify Drum Sander Setter Neyda. CARDING SUPERVISOR faxed new referral to [facility]. -HERMAN Hays
[2019-03-16 12:00] VITALS: BP 115/52
--- NOTE | 2019-03-16 13:17 | NUR ---
Occupational therapy orders received and chart reviewed. Patient was receiving his lunch upon OT arrival and declined an OT evaluation at that time. Patient requesting that the OT return at 14:00 to complete evaluation. Will follow up with patient. Fidelina Ernandez OTR/L
--- NOTE | 2019-03-16 13:42 | NUR ---
Jigger Artisan in to talk to patient. Patient states lives at HOME with LADY FRIEND. There are NO steps in the home. Physician: VANNA ANGEL [facility] Patient's level of ADLs: MODERATE ASSIST Patient has working utilities: YES DME: [facility] Follow-up physician's appointment after d/c: WILL BE MADE BY HOSPITALIST NURSE DIRECTOR ON DISCHARGE Does patient want to access PORTAL?: NO Discharge plan PT STATES HE LIVES AT HOME WITH A LADY FRIEND. STATES HE HAS NOT BEEN DOING WELL AT HOME SINCE HAVING I&D OF [facility] IN . STATES HE WOULD LIKE TO GO TO [facility] FOR REHAB BEFORE GOING HOME. STATES HE HAS HAD [facility] FOR A WHILE BUT DOES NOT SEEM TO BE GETTING BETTER. NEWS LIBRARIAN INFORMED AND WILL MAKE REFERRAL TO [facility]. WILL CONTINUE TO FOLLOW. . SHENG ANDREW
--- NOTE | 2019-03-16 14:00 | NUR ---
Occupational therapy orders received and chart reviewed. Patient was out of the room at a CT per nursing. Will follow up with patient for completion of OT evaluation. Thank you. Fidelina Ernandez, OTR/L
--- NOTE | 2019-03-16 14:10 | NUR ---
Occupational therapy orders received and OT evaluation completed in full on floor five. Patient precautions include fall risk, cane use, and L groin non-healing wound. Per OT eval, patient would benefit from a SNF. If refused, home with SN, OT, and PT. Patient would benefit from continued OT treatment to maximize independence and safety with ADLs and functional mobility/transfers. Thank you for the referral. Fidelina Ernandez, OTR/L
--- NOTE | 2019-03-16 15:05 | NUR ---
PHYSICAL THERAPY Lidya completed moderate level of [id number] recomend SNF at discharge PT to work on transfers, amb, balance, safety thank you Shira Griffiths PT
[2019-03-16 16:00] VITALS: BP 102/51
--- NOTE | 2019-03-16 17:06 | NUR ---
DRESSING CHANGE PER DR JOHNSON ORDER. PT GROIN CLEANSED. CHANGED UROSTOMY BAG PER PT REQUEST D/T LEAKING URINE. DR CHAUDHARI ROUNDED AND DISCUSSED PLAN OF CARE WITH PT& FAMILY.
[2019-03-16 20:00] VITALS: BP 107/48
--- NOTE | 2019-03-16 21:11 | NUR ---
PATIENT REQUESTING DRESSING ON LEFT GROIN TO BE CHANGED. DRESSING CHANGED AT THIS TIME. WILL CONTINUE TO MONITOR.
--- NOTE | 2019-03-16 21:48 | NUR ---
PATIENT MEDICATED WITH NORCO FOR COMPLAINTS OF LEFT GROIN PAIN. RATES 10/20. WILL CHECK EFFECTIVENESS.
[2019-03-17] VITALS: BP 106/53
--- NOTE | 2019-03-17 07:54 | NUR ---
Waiting acceptance from [facility]. INDUSTRIAL SEWER [facility] -HERMAN Hays
[2019-03-17 08:00] VITALS: BP 100/50
--- NOTE | 2019-03-17 09:03 | NUR ---
DRESSING CHANGE TO LEFT GROIN COMPLETED. COPIOUS AMOUNTS PURULENT DRAINAGE NOTED.PT TOLERATED WELL. CALL LIGHT IN REACH.
--- NOTE | 2019-03-17 11:15 | NUR ---
DRESSING CHANGE COMPLETED TO LEFT GROIN. COPIOUS AMTS PURELENT DRAINAGE NOTED.
--- NOTE | 2019-03-17 11:25 | NUR ---
PHYSICAL THERAPY Patient seen this am 1;1 for therapy visit and was resting supine in bed upon therapist arrival. Patient identified by name / and reports 6/10 L Groin pain. Patient was pleasant this morning, transfering supine to sit EOB with MIN A and then sit to stand CGA x 1. Patient ambulates with use of st cane, CGA, 30'x 1, demonstrating "waddling" gait pattern secondary to shorter L leg length. Patient also very unsteady during 180 degree turns while returning to EOB sit with increased fatigue. Patient transfered back to bed and remained with call light, tray table, cell phone, bed alarm for safety. Will continue per POC as tolerated, total treatment time 15 minutes. Chi Chavez, PIPELINE EXECUTIVE
--- NOTE | 2019-03-17 11:43 | NUR ---
OT NOTE Pt was seen this A.M. 1:1 for 24 minute OT session. Upon arrival pt was supine in bed. Pt identified by name and and had complaints of 6/10 L groin pain. Pt transferred supine to sit EOB with Karrie for assist with UB. While sitting EOB pt was educated and demonstrated on use of racher and sock aid for increased I in lower body dressing. Pt then doffed B socks with use of fondant puff maker with SBA and donned B socks with use of sock aid with Karrie for assist with alignment to tavares. Sit to stand then completed from bed level with Karrie and use of straight cane for UE support. Functional mobility was then completed to the bathroom and back with CGA and use of straight cane. Pt then transferred back into bed sit to supine with SBA. There he was left with call light in hand, tray table in place, and bed alarm activated for safety. COntinue with rec D/C plan to SNF. AVNI Romero/Azeem
[2019-03-17 12:00] VITALS: BP 100/64
--- NOTE | 2019-03-17 14:00 | NUR ---
OT NOTE Pt was seen this P.M. 1:1 for second OT session consisting of 15 minutes. Upon arrival pt was supine in bed. Pt identified by name and and had no complaints at this time. Pt transferred supine to sit EOB with Karrie for assist with UB. Sit to stand completed from bed level with Karrie and use of straight cane for UE support. Functional mobility was then completed into the bathroom with CGA and use of straight cane. There he transferred on/off standard commode with Karrie and use of grab bar for UE support. Clothing management completed with CGA and toilet hygiene completed with CGA while standing. Pt then stood sink side while washing his hands with CGA for safety. Pt trasnferred back into bed sit to supine with SBA. THere he was left with call light in hand, tray table in place, and bed alarm activated for safety. COntinue with rec D/C plan to SNF. JERONIMO Romero
[2019-03-17 16:00] VITALS: BP 96/47
--- NOTE | 2019-03-17 16:12 | NUR ---
IV ACCESS LOST. MULTIPLE ATTEMPTS MADE TO REGAIN IV ACCESS. PLACED CALL TO [facility] FOR SOMEONE TO ATTEMPT WHEN THEY WERE ABLE.
--- NOTE | 2019-03-17 18:28 | NUR ---
NORCO 5/325 MG GIVEN FOR C/O PAIN,01/20.
--- NOTE | 2019-03-17 19:47 | NUR ---
IV started right forearm with #22 protective cath after 1 attempts. Site prepped with Chloroprep. Sterile dressing applied. Patient tolerated procedure well.BY PROJECT BUILDERODALIS KELLY.
[2019-03-17 20:00] VITALS: BP 94/43
[2019-03-18] VITALS (8 sets, daily range): BP systolic 97–113; BP diastolic 42–59
[2019-03-18 06:32] LABS: BASO % 0.2 % (0.0-1.0); BUN 20 mg/dl (7-24); CHLORIDE 99 mmol/L (98-107); CREATININE 0.96 mg/dL (0.70-1.30); EOS # 0.3 10*3/uL (0.0-0.4); EOS % 3.2 % (1.0-4.0); HEMATOCRIT 34.4 % (42.0-52.0); HEMOGLOBIN 10.8 g/dl (14.0-18.0); LYMPH % 11.7 % (27.0-41.0); MEAN CELL VOLUME 85.8 fl (80.0-94.0); MEAN CORPUSCULAR HGB 26.9 pg (27.0-31.0); MEAN CORPUSCULAR HGB CONC 31.4 g/dl (33.0-37.0); MEAN PLATELET VOLUME 9.7 fl (9.6-12.3); MONO # 0.8 10*3/uL (0.1-1.0); MONO % 9.4 % (3.0-9.0); NEUT # 6.3 10*3/uL (2.3-7.9); NEUT % 74.9 % (47.0-73.0); PLATELET COUNT AUTOMATED 265 10*3/uL (130-400); POTASSIUM 3.9 mmol/L (3.5-5.1); RED BLOOD COUNT 4.01 10*6/uL (4.50-5.90); RED CELL DISTRI WIDTH 15.6 % (0-14.5); SODIUM 135 mmol/L (136-145); WHITE BLOOD COUNT 8.4 10*3/uL (4.8-10.8)
--- NOTE | 2019-03-18 10:10 | NUR ---
OT NOTE Pt was seen this A.M. 1:1 for 27 minute OT session. Upon arrival pt was sitting upright in the recliner. Pt identified by name and and had no complaints at this time. While sitting in the recliner pt doffed B socks using the material cutter with SBA with good recall from previous session. Pt was then provided with wide sock aid due to other size being to small. He was then able to tavares B socks with use of wide sock aid with SBA again with good recall from previous session. Sit to stand completed from chair level with Karrie due to low surface. Challenged pt's static standing tolerance needed for increased I in self care tasks and functional transfers, pt was able to tolerate aprox 4 minutes at a time with use of straight cane for UE support before sitting due to fatigue. Pt then completed functional mobility to the bathroom with CGA and use of straight cane. There he stood sink side while washing his hands and face with CGA, pt did have one minor LOB that occured while his eyes were shut that required Karrie to correct. Functional mobility then completed back to the recliner with CGA and use of straight cane. Pt was left sitting upright in the recliner with call light in hand, tray table in place, and phone in reach. Continue with rec D/C plan to SNF. JERONIMO Romero
--- NOTE | 2019-03-18 12:00 | NUR ---
TO SURGERY BY BED.
--- NOTE | 2019-03-18 12:29 | NUR ---
Patient has completed his 3 night stay. Patient is able to go to [facility] if medically stable. NIGHT COURT MAGISTRATE faxed updates to [facility]. NIGHT COURT MAGISTRATE completed HENs. -HERMAN Hays
--- NOTE | 2019-03-18 12:50 | NUR ---
OT NOTE Attempted to see pt this P.M. for OT session and upon arrival pt was out of the room for medical procedure. Will check back at a later time/date. AVNI Romero/Azeem
--- NOTE | 2019-03-18 12:50 | NUR ---
PHYSICAL THERAPY Patient was out of his room in Surgery when approached this pm for therapy. Will continue per POC as able. Chi Chavez, CREATIVE WRITING ENGLISH PROFESSOR
--- NOTE | 2019-03-18 13:49 | NUR ---
PT HAS BEEN ACCEPTED TO [facility]. WILL BE GOING TO OR TODAY FOR I&D OF GROIN WITH POSSIBLE WOUND VAC PLACEMENT PER NOTES. WILL CONTINUE TO FOLLOW.
--- NOTE | 2019-03-18 15:26 | NUR ---
OCCUPATIONAL THERAPY CO-SIGN I approve of the Occupational Therapy notes written above. NELI NEWMAN OTR/Azeem
--- NOTE | 2019-03-18 18:48 | NUR ---
Medicated with dulcolax per prn order for complaints of constipation. Pt states its been 5 days since bm. Denies nausea or pain, states he feels full and pressure. States he is passing flatus.
[2019-03-19] VITALS: BP 104/49
[2019-03-19 07:32] LABS: BASO % 0.4 % (0.0-1.0); EOS # 0.3 10*3/uL (0.0-0.4); EOS % 3.2 % (1.0-4.0); HEMATOCRIT 36.1 % (42.0-52.0); HEMOGLOBIN 11.2 g/dl (14.0-18.0); LYMPH # 0.8 10*3/uL (1.3-4.4); LYMPH % 9.8 % (27.0-41.0); MEAN CORPUSCULAR HGB 26.7 pg (27.0-31.0); MEAN PLATELET VOLUME 9.4 fl (9.6-12.3); MONO # 0.7 10*3/uL (0.1-1.0); MONO % 8.4 % (3.0-9.0); NEUT # 6.6 10*3/uL (2.3-7.9); NEUT % 77.7 % (47.0-73.0); PLATELET COUNT AUTOMATED 259 10*3/uL (130-400); RED CELL DISTRI WIDTH 15.7 % (0-14.5); WHITE BLOOD COUNT 8.5 10*3/uL (4.8-10.8)
[2019-03-19 07:58] LABS: BUN 18 mg/dl (7-24); CHLORIDE 98 mmol/L (98-107); CREATININE 0.94 mg/dL (0.70-1.30); POTASSIUM 3.7 mmol/L (3.5-5.1); SODIUM 136 mmol/L (136-145)
[2019-03-19 08:00] VITALS: BP 108/57
--- NOTE | 2019-03-19 08:54 | NUR ---
PATIENT REQUESTED SUGAR TO BE CHECKED. JUST ATE BREAKFAST. PATIENTS SUGAR IS 197. WILL MONITOR
--- NOTE | 2019-03-19 09:52 | NUR ---
PRN MOM GIVEN FOR PT COMPLAINTS OF HARD STOOL. BEDSIDE COMMODE PROVIDED WELL. CALL LIGHT WITHIN REACH, WILL MONITOR
--- NOTE | 2019-03-19 11:57 | NUR ---
PHYSICAL THERAPY BUSINESS DEVELOPMENT RECRUITER attempted to see patient x 2 this date; with first attempt-- patient states he is constipated and stomach hurt. Patient suggested BUSINESS DEVELOPMENT RECRUITER come back at a later time. BUSINESS DEVELOPMENT RECRUITER attempted once more later in afternoon, patient supine in bed and reports having discomfort after having bowel movement and did not want to participate. BUSINESS DEVELOPMENT RECRUITER educated patient on LE exercises to perform while in bed. Lizet Torres PTA
[2019-03-19 12:00] VITALS: BP 119/66; BP 119/96
--- NOTE | 2019-03-19 12:06 | NUR ---
PRN NORCO GIVEN FOR PT COMPLAINTS OF PAIN IN THE LEFT GROIN RATING IT 9/10. CALL LIGHT WITHIN REACH, WILL MONITOR
--- NOTE | 2019-03-19 13:06 | NUR ---
PRN MEDICATION EFFECTIVE PER PT. NO COMPLAINTS AT THIS TIME
--- NOTE | 2019-03-19 15:08 | NUR ---
BOTH PATIENTS IV SITES LEAKING. NEW IV SITE RESTART IN THE RIGHT ARM. 22#. IV ZYVOX RUNNING WITHOUT ISSUE. CALL LIGHT WITHIN REACH, WILL MONITOR
[2019-03-19 16:00] VITALS: BP 102/57
--- NOTE | 2019-03-19 17:27 | NUR ---
NOTIFIED DR. QUINTANILLA AT THIS TIME FOR PT COMPLAINTS OF BRIGHT RED BLOOD FROM RECTUM. PATIENT IS CONSTANTLY ATTEMPTING TO MOVE BOWELS AND IS CONSTANTLY WIPING AND IS VERY RAW.
[2019-03-19 20:00] VITALS: BP 115/54
--- NOTE | 2019-03-19 20:19 | NUR ---
PRN NORCO ADMINISTERED FOR PT C/O 10/10 BUTTOCK AND GROIN PAIN. PT RECEIVED MOM EARLIER IN THE DAY FOR C/O CONSTIPATION, PT NOW STATES HE IS "GOING NON STOP AND HIS BUTTOCKS FEELS RAW". ON ASSESSMENT THERE IS REDNESS TO THE AREA, THAT THEY HAVE BEEN APPLYING CALAZIME LOTION TOO. WILL CONTINUE TO MONITOR AND REASSESS
--- NOTE | 2019-03-19 22:00 | NUR ---
PT STATES THE NORCO WAS EFFECTIVE. ONE TIME DOSE OF METAMUCIL ADMINISTERED FOR PT C/O DIARRHEA.
--- NOTE | 2019-03-19 23:35 | NUR ---
TEMAZEPAM ADMINISTERED FOR PT C/O INSOMNIA.
[2019-03-20] VITALS: BP 103/52
[2019-03-20 08:00] VITALS: BP 110/53
--- NOTE | 2019-03-20 09:32 | NUR ---
DR. CHAUDHARI STATED PATIENT MAY GET IN THE SHOWER
[2019-03-20 12:00] VITALS: BP 113/56
[2019-03-20 16:00] VITALS: BP 120/76
[2019-03-20 20:00] VITALS: BP 113/49
--- NOTE | 2019-03-20 20:04 | NUR ---
EBENEZER ADMINISTERED FOR PT C/O BUTTOCKS PAIN. STATES THE AREA IS "RAW FROM ALL OF THE WIPING". HE RATES THE PAIN A 8/10. WILL CONTINUE TO MONITOR. PT REQUESTING A SLEEPING PILL WITH HIS NIGHT TIME MEDICATIONS.
--- NOTE | 2019-03-20 20:12 | NUR ---
IN TO ASSESS PT AT THIS TIME. C/O BUTTOCKS PAIN, AREA RED AND IRRITATED. NORCO ADMINISTERED. PT STATES THAT HE FEELS GREAT TODAY AFTER HAVING A LARGE BOWEL MOVEMENT AND A SHOWER. RESPIRATIONS EASY AND UNLABORED. 95% ON RA. WILL CONTINUE TO MONITOR. CALL LIGHT IN REACH, BED ALARM ACTIVATED.
--- NOTE | 2019-03-20 21:59 | NUR ---
PT RATES PAIN A 5 AT THIS TIME. STATES NORCO WAS EFFECTIVE.
--- NOTE | 2019-03-20 22:30 | NUR ---
DRESSING CHANGE PREFORMED TO LEFT GROIN AT THIS TIME. DRAINING MODERATE AMOUNT OF SEROSANGUINOUS DRAINAGE. NO ODOR NOTED. PERIWOUND REDNESS. PT DOES HAVE PAIN AT THE SITE BUT HAD BEEN MEDICATED W/ NORCO PRIOR AND DIDN'T HAVE ANY COMPLAINTS AT THE TIME OF CHANGE. CLEANSED WITH NSS AND DRESSED WITH 2X2'S, 4X4, AND AN ABD PAD. WILL CONTINUE TO ASSESS THE SITE. CALAZIME LOTION APPLIED TO BUTTOCKS.
[2019-03-21] VITALS: BP 99/52
--- NOTE | 2019-03-21 03:59 | NUR ---
24 HOUR CHART CHECK COMPLETE.
--- NOTE | 2019-03-21 07:49 | NUR ---
PYTHON DEVELOPER faxed updates to [facility]. Waiting on ID for abx recommendations. -HERMAN Hays
[2019-03-21 08:00] VITALS: BP 111/53
--- NOTE | 2019-03-21 08:35 | NUR ---
PHYSICAL THERAPY New order received for PT however pt has already been evaluated and on caseload. Pt s/p I&D with irrigation of L groin 03/19 will continue to follow for therapy, thank you. Shira Griffiths PT
--- NOTE | 2019-03-21 08:35 | NUR ---
Occupational therapy orders received. Patient is currently on the OT caseload. Per chart review, patient had an I&D of the left non-healing open wound. Continue with plan of care. Thank you. Fidelina Ernandez, OTR/L
--- NOTE | 2019-03-21 10:41 | NUR ---
UROSTOMY BAG CHANGED PER PHYSICIAN ORDER.PT TOLERATED WELL. DRESSING CHANGE COMPLETED TO LEFT GROIN PER PHYSICIAN ORDER. MODERATE,SEROSANGUINOUS,PURELENT DRAINAGE NOTED. CALAMAZINE APPLIED TO BILATERAL BUTTOCKS AND SCROTOM. PT VOICES NO OTHER NEEDS AT THIS TIME. CALL LIGHT IN REACH.
--- NOTE | 2019-03-21 11:00 | NUR ---
OT NOTE Pt was seen this A.M. 1:1 for 15 minute OT session. Upon arrival pt was supine in bed. Pt identified by name and and had no complaints at this time. Pt transferred supine to sit EOB with SBA. While sitting EOB pt donned B socks with SBA and use of sock aid. Sit to stand completed from bed level with CGA and use of straight cane for UE support. Functional mobility completed to the bathroom and back with CGA and use of straight cane. Pt had bouts of impulsive behaviors increading risk of falls, educated pt on slowing down. Pt then presented with fair carry over. Pt transferred back into bed sit to supine with SBA. There he was left with call light in hand, tray table in place, and bed alarm activated for safety. Continue with rec D/C plan to SNF. AVNI Romero/Azeem
--- NOTE | 2019-03-21 11:07 | NUR ---
24 HR chart check completed.
--- NOTE | 2019-03-21 11:26 | NUR ---
PHYSICAL THERAPY Patient presented to therapy in supine in bed with head of bed elevated and report of no pain. Patient's present during treatment. Patient was identified by name and on wristband. Patient gives informed consent for treatment. Patient performed supine to sitting on EOB with SBA. Patient sit to stand transfer with SBA. Patient ambulated with standard cane with CGA X 1 to MIN A X 1 for occassional LOB, especially with turns. Patient ambulated 50' x 2 with standard cane ,inside room only, due to isolation precautions. Patient has catheter that patient disconnects himself. Patient transferred back to supine in bed with SBA. Patient was left in supine in bed with head of bed elevated and call light within reach. Bed alarm NOT activated because patient is transferring too and from bedside commode during the day. Patient was 1:1 with this ACCOUNTS PAYABLE ANALYST for 19 minutes total. JEANA MEADE ACCOUNTS PAYABLE ANALYST
[2019-03-21 12:00] VITALS: BP 111/54
[2019-03-21 16:00] VITALS: BP 112/52
--- NOTE | 2019-03-21 18:12 | NUR ---
Patient resting quietly with no c/o discomfort. Respirations easy and regular. Vital signs stable. No overt distress. CURT AREVALO
[2019-03-21 20:00] VITALS: BP 97/50
--- NOTE | 2019-03-21 20:45 | NUR ---
PT STATES THAT WHILE USING THE BEDSIDE COMMODE THAT HIS DRESSING FELL OFF HIS WOUND LOCATED NEAR THE GROIN. I REPLACED THE STERILE GUAZE AT THIS TIME.
--- NOTE | 2019-03-21 22:43 | NUR ---
PT REQUESTING SOMETHING TO HELP HIM SLEEP. PRN RESTORIL PO IS GIVEN AT THIS TIME. WILL CONTINUE TO MONIOR THE PATIENT. CALL LIGHT WITHIN REACH
--- NOTE | 2019-03-21 23:26 | NUR ---
RI RE-EVALUATED AFTER GIVING RESTORIL AND AT THIS TIME AND HE IS CURRENTLY SLEEPING. WILL CONTINUE TO MONITOR THE PATIENT.
[2019-03-22] VITALS: BP 119/47
--- NOTE | 2019-03-22 01:58 | NUR ---
24 HR chart check completed.
--- NOTE | 2019-03-22 04:29 | NUR ---
Patient sleeping. Respirations relaxed and easy. Siderails up . [place] on. NAMITA CODY
--- NOTE | 2019-03-22 05:12 | NUR ---
Patient is requesting to continue to follow up in the wound care center with Dr. Corona even though he is going to a facility he states he will get transportation to the wound care center atleast once a week.
[2019-03-22 08:00] VITALS: BP 108/50
--- NOTE | 2019-03-22 08:00 | NUR ---
PT SITTING UP IN RECLINER IN ROOM. NO S/S OF DISTRESS. ASSESSMENT COMPLETE. PT DENIES PAIN. DRESSING CHANGED TO PT LEFT GROIN. ALL SAFETY MEASURES IN PLACE. RESPIRATIONS EASY. CALL LIGHT IN REACH.
--- NOTE | 2019-03-22 08:50 | NUR ---
OT NOTE Pt was seen this A.M. 1:1 for 20 minute OT session. Upon arrival pt was supine in bed. Pt identified by name and and had no complaints at this time. Pt transferred supine to sit EOB with SBA. Sit to stand then completed from bed level with CGA for safety and use of straight cane for UE support. Challenged pt's dynamic standing tolerance needed for increased I in self care tasks and functional transfers. Pt was able to tolerate aprox 3 minutes at a time before sitting due to fatigue. Functional mobility completed to the bathroom and back with CGA and use of straight cane. Pt presented with bouts of unsteady gait that required Karrie to correct. Pt then stood sink side while washing his hands and simulating hair care and UB bathing with CGA. Pt had one LOB while reaching overhead with BUE that required Karrie to correct. Functional mobility was then completed back to the recliner where he was left sitting upright with call light in hand, tray table in place, and phone in reach. Continue with rec D/C plan to SNF. JERONIMO Romero
--- NOTE | 2019-03-22 09:08 | NUR ---
PHYSICAL THERAPY Patient presented to therapy in supine with head of bed elevated and bed alarm OFF. Patient gives informed consent for treatment. Patient was identified by name and on wristband. Patient disconnects his own catheter line. Patient transferred supine to sitting at EOB transfer with SBA. Patient sat on EOB unassisted. Patient sit to stand from EOB with SBA. Patient ambulated with standard cane and CGA X 1 for 60' x 2 with MULTIPLE minor LOB / instability throughout gait distance, but NO majopr losses of balance. Patient turned without LOB with standard cane and CGA X 1. Patient transferred into bedside chair with SBA. Patient left in bedside chair with call light within reach, tray table near patient and LEs in low position. Patient was 1:1 with this SERVICE CLERK for 18 minutes total. JEANA MEADE SERVICE CLERK
--- NOTE | 2019-03-22 09:12 | NUR ---
Follow up with Dr. Corona in wound care clinic on 03/28/19 at 2:00pm, call [phone] with any concerns
[2019-03-22 09:47] VITALS: BP 112/60
[2019-03-22 10:08] LABS: HEPATITIS B SURFACE AG Negative (Negative); HEPATITIS C VIRUS ANTIBODY <0.1 s/co (0.0-0.9)
--- NOTE | 2019-03-22 11:46 | NUR ---
Spoke to Dr. Keyes regarding discharge planning and IV antibiotics. Dr. Keyes will be here at the hospital at 1pm. Hospitalist nurse director notified.
--- NOTE | 2019-03-22 14:06 | NUR ---
Discussed discharge planning with Dr. Keyes. Patient is going to have another surgery on per Dr. Corona.
--- NOTE | 2019-03-22 14:22 | NUR ---
WAGON DRIVER SALESPERSON faxed additional updates to [facility] -HERMAN Hays
--- NOTE | 2019-03-22 14:48 | NUR ---
PHYSICAL THERAPY Patient presented to therapy in supine with head of bed slightly elevated and PCT attending to patient dressing him. Arrived in patient's room at 2:30 PM. Patient gives informed consent for treatment. Patient was identified by name and on wristband. Patient performed supine to sitting at EOB and sit to stand with SBA. Patient ambulated with standard cane and CGA x 1 for 60' x 2 with no LOB this afternoon with gait. Patient transferred to bedside chair with SBA where he reclined back in chair himself. Patient was left in bedside chair with call light within reach and tray table near patient. Patient did NOT have bed alarm on upon this HOSPITAL ADMINISTRATOR arriving in the patient's room at 2:30 pm. Patient does NOT have a chair alarm attached to chair. Patient has been ambulating too and from Bathroom on his own throughout the day. Patient was 1:1 with this HOSPITAL ADMINISTRATOR for 20 minutes total. Exited patient's room at 2:50 pm. JEANA MEADE HOSPITAL ADMINISTRATOR
[2019-03-22 16:00] VITALS: BP 124/58
--- NOTE | 2019-03-22 16:30 | NUR ---
PT DRESSING CHANGED TO LEFT GROIN AT THIS TIME. NO S/S OF DISTRESS. PT TOLERATED DRESSING CHANGE WELL. IV SITE PATENT. IV ATB INFUSING PER ORDERS. ALL SAFETY MEASURES IN PLACE. CALL LIGHT IN REACH.
[2019-03-22 20:00] VITALS: BP 116/50
--- NOTE | 2019-03-22 21:41 | NUR ---
PATIENT MEDICATED WITH TYLENOL FOR L GROIN PAIN 08/20. WILL MONITOR
--- NOTE | 2019-03-22 22:41 | NUR ---
TYLENOL EFFECTIVE FOR GROIN PAIN
--- NOTE | 2019-03-22 23:27 | NUR ---
STATED OK TO CONTINUE RESTORIL.
--- NOTE | 2019-03-22 23:41 | NUR ---
PATIENT MEDICATED WITH RESTORIL FOR C/O INSOMNIA. WILL MONITOR
[2019-03-23] VITALS: BP 103/46
--- NOTE | 2019-03-23 00:41 | NUR ---
RESTORIL APPEARS EFFECTIVE. PATIENT RESTING IN BED QUIETLY, EYES CLOSED. NO DISTRESS NOTED. CALL LIGHT WITHIN REACH
[2019-03-23 06:09] LABS: BASO % 0.5 % (0.0-1.0); EOS # 0.2 10*3/uL (0.0-0.4); EOS % 3.7 % (1.0-4.0); HEMATOCRIT 34.7 % (42.0-52.0); HEMOGLOBIN 11.1 g/dl (14.0-18.0); LYMPH # 0.9 10*3/uL (1.3-4.4); LYMPH % 15.1 % (27.0-41.0); MEAN CELL VOLUME 86.1 fl (80.0-94.0); MEAN CORPUSCULAR HGB 27.5 pg (27.0-31.0); MEAN PLATELET VOLUME 9.1 fl (9.6-12.3); MONO # 0.6 10*3/uL (0.1-1.0); MONO % 9.8 % (3.0-9.0); NEUT # 4.4 10*3/uL (2.3-7.9); NEUT % 70.6 % (47.0-73.0); PLATELET COUNT AUTOMATED 180 10*3/uL (130-400); RED BLOOD COUNT 4.03 10*6/uL (4.50-5.90); RED CELL DISTRI WIDTH 15.8 % (0-14.5); WHITE BLOOD COUNT 6.2 10*3/uL (4.8-10.8)
[2019-03-23 06:19] LABS: BUN 20 mg/dl (7-24); CHLORIDE 105 mmol/L (98-107); CREATININE 0.86 mg/dL (0.70-1.30); POTASSIUM 3.9 mmol/L (3.5-5.1); SODIUM 140 mmol/L (136-145)
--- NOTE | 2019-03-23 06:43 | NUR ---
Dressing changed, no drainage. Sterile dressing re-applieD. REDNESS NOTED AND PURULENT DRAINAGE. PATIENT TOLERATED WELL. GEORGIE MORALES
--- NOTE | 2019-03-23 07:18 | NUR ---
ALFREDO COOPER [id number] Please refer to the physician's history and physical for past medical history, comorbid conditions, and allergies. Diagnosis: NONHEALING OPEN WOUND OF GROIN FAILURE OF Jerman Score: 18,AT RISK WOUND DESCRIPTIONS:( follow up visit ) Location of the wound: left upper medial thigh Type of wound: surgical Thickness: Partial Size: 0.9cm x 0.9cm x 0.1cm Tunneling: none Undermining: none Sinus Tract: none Presence of Exudate: Serosanguineous Amount: Heavy Color: Red Odor: Medium Periwound Skin Appearance: Edema Wound edges: approximated Pain (associated with wound): tender at time of assessment How does patient state this happened? pt stated that he was following in [place] and will not continue to follow up there. Patient stated he had surgery on January 03 with and a week before that it was I&D and is unsure who did the I&D because the pain was going into his testicles. He stated he followed with Dr. Mcdermott and . Wound Number 2: Right buttocks is red and blanchable at time of assessment. No open areas noted at time of assessment. Wound Number 3: Left buttocks is red and blanchable at time of assessment. No open areas noted at time of assessment. Wound Number: 4 Location of the wound: intergluteal cleft Type of wound: MASD Thickness: Partial Size: 1.7cm x 0.5cm x 0.1cm Tunneling: none Undermining: none Sinus Tract: none Presence of Exudate: Serosanguineous Amount: Light Color: Red Odor: None Periwound Skin Appearance: Normal Wound edges: approximated Pain (associated with wound): none at time of assessment How does patient state this happened? pt stated that the drainage is so much that he is constantly changing his clothing and is wet from the drainage Wound Number: 5 Right groin is pink and blanchable at time of assessment. No open areas noted at time of assessment. Patient stated the powder is helping. Surface the patient is resting on: Isoflex SKIN PREVENTION RECOMMENDATION: 1. Pressure redistribution support surface as appropriate 2. Elevate heels 3. Remove boots/TEDS every shift and reapply 4. Head of bed 30 degrees as tolerated 5. Assess nutrition and hydration 6. Manage moisture 7. Avoid the use of containment devices while in bed 8. Use absorptive products on surfaces limit layers of linens on bed 9. Turn and reposition every 1-2 hours in bed and every 1 hour in chair as tolerated 10. Weight shifts every 15 minutes while up in chair 11. Offloading with pillows or device to keep heels elevated off bed 12. Monitor skin at least every shift 13. Inspect under medical devices twice a day WOUND TREATMENT RECOMMENDATIONS: Please reorder nystatin powder:Cleanse right groin with soap and water and apply nystatin powder every 8 hours Continue dressing change: Cleanse right buttocks, left buttocks, intergluteal cleft with soap and water and apply calazime every shift and prn for soiling. Continue dressing change: Cleanse right upper thigh with nss and apply dsd every shift and prn for soiling. Continue Wheelchair cushion when oob.
[2019-03-23 08:00] VITALS: BP 119/34
--- NOTE | 2019-03-23 08:41 | NUR ---
AUTOMATIC THREAD WINDER spoke with the patient while signing Medicare Rights. Patient asked to speak with Shameka in [facility]. AUTOMATIC THREAD WINDER contacted Shameka she stated she would see the patient. -HERMAN Hays
--- NOTE | 2019-03-23 09:00 | NUR ---
OT NOTE Pt was seen this A.M. 1:1 for 20 minute OT session. Upon arrival pt was supine in bed. Pt identified by name and and had no complaints at this time. Pt transferred supine to sit EOB with SBA. Sit to stand completed from EOB with CGA and use of straight cane for UE support. Functional mobility completed into the bathroom with CGA and use of straight cane, throughout pt required verbal prompts for slowing down due to being impulsive and increasing risk of falls. Pt transferred on to standard commode with CGA for safety. Pt had complaints of the standard commode being uncomfortable with his wound requesting to then sit on the bedside commode. Functional mobility completed to the bedside commode with CGA and use of straight cane for UE support. Pt transferred on/off bedside commode with CGA for safety. Clothing management completed with CGA and toilet hygiene completed with CGA. Functional mobility then completed back to the EOB where he transferred sit to supine with SBA. There he was left with call light in hand, tray table in place, and bed alarm activated for safety. Continue with rec D/C plan to SNF. AVNI Romero/Azeem
--- NOTE | 2019-03-23 09:03 | NUR ---
PHYSICAL THERAPY Patient presented to therapy in supine with head of bed elevated and bed alarm activated. Patient gives informed consent for treatment. Patient was identified by name and on wristband. This POWDER WORKER entered room at 0907 am. Patient requested to walk to bathroom. Patient transferred supine to sitting at EOB with SBA. Patient disconnects his own catheter line. Patient sit to stand at EOB with SBA. Patient ambulated to restroom with CGA X 2 due to some unsteadiness with standard cane. Patient transferred to commode with Min A x 1 and patient was left on commode as therapists stepped out of bathroom. Patient sit to stand off of commode himself without telling therapists he was getting up. Patient ambulated himself 5' x 1 to bedside commode , which was in the restroom and NOT emptied by the conference center manager yet. Patient sat on bedside commode with SBA, complaining that his L foot would NOT touch the floor when sitting on the regular toilet, which caused his gauze pad to come loose and his woud site to leak. Patient used bedside commode and then STS from bedside commode with SBA, Patient complaining about bedside commode," NOT being emptied by patient care technicians and just being left there in unsanitary conditions". Patient declined to ambulate or do any therapy further due to being in a bad mood. Patient transferred back to supine in bed with SBA. This POWDER WORKER and AVNI Bains pressed call button and had ODALIS JACQUES come into room to look at loose guaze pad on patient's groin. Patient was left in care of ODALIS JACQUES with head of bed elevated, call light within reach and bed alarm activated. Patient is in foul mood at this time. Patient was 1:1 with this POWDER WORKER for 15 minutes total. AVNI BAINS present as witness to treatment. JEANA MEADE POWDER WORKER
[2019-03-23 12:00] VITALS: BP 110/45
--- NOTE | 2019-03-23 13:34 | NUR ---
PT IS FOR OR AGAIN TOMORROW WITH POSSIBLE WOUND VAC PLACEMENT. HAS BEEN ACCEPTED TO [facility]. WILL CONTINUE TO FOLLOW.
--- NOTE | 2019-03-23 13:48 | NUR ---
GROUT PUMP OPERATOR faxed updates to [facility]. -HERMAN Hays
[2019-03-23 16:00] VITALS: BP 122/56
[2019-03-23 20:00] VITALS: BP 110/48
[2019-03-24] VITALS (8 sets, daily range): BP systolic 92–133; BP diastolic 41–57
[2019-03-24 06:44] LABS: BASO % 0.5 % (0.0-1.0); EOS # 0.2 10*3/uL (0.0-0.4); HEMATOCRIT 35.7 % (42.0-52.0); HEMOGLOBIN 11.2 g/dl (14.0-18.0); LYMPH # 0.9 10*3/uL (1.3-4.4); LYMPH % 11.4 % (27.0-41.0); MEAN CELL VOLUME 86.4 fl (80.0-94.0); MEAN CORPUSCULAR HGB 27.1 pg (27.0-31.0); MEAN CORPUSCULAR HGB CONC 31.4 g/dl (33.0-37.0); MEAN PLATELET VOLUME 9.4 fl (9.6-12.3); MONO # 0.8 10*3/uL (0.1-1.0); MONO % 9.5 % (3.0-9.0); NEUT % 75.2 % (47.0-73.0); PLATELET COUNT AUTOMATED 178 10*3/uL (130-400); RED BLOOD COUNT 4.13 10*6/uL (4.50-5.90); RED CELL DISTRI WIDTH 16.1 % (0-14.5)
[2019-03-24 07:14] LABS: ALBUMIN 2.1 gm/dl (3.1-4.5); ALKALINE PHOSPHATASE 121 U/L (45-117); BUN 20 mg/dl (7-24); CHLORIDE 103 mmol/L (98-107); CREATININE 0.88 mg/dL (0.70-1.30); POTASSIUM 3.9 mmol/L (3.5-5.1); SGOT/AST 55 IU/L (3-35); SGPT/ALT 43 U/L (12-78); SODIUM 139 mmol/L (136-145); TOTAL PROTEIN 7.1 gm/dL (6.4-8.2)
--- NOTE | 2019-03-24 10:06 | NUR ---
OT NOTE Pt was seen this A.M. 1:1 for 16 minute OT session. Upon arrival pt was supine in bed. Pt identified by name and and had no complaints at this time. Pt transferred supine to sit EOB with Karrie. Sit to stand completed from bed level with CGA and use of straight cane for UE support. Functional mobility completed to the bathroom with CGA and use of straight cane with bouts of unsteady gait. Pt reported that his bandage on his wound came off so refused any other therapy at this time. Functional mobility completed back to [facility] EOB where he transferred sit to supine with SBA. There he was left with call light in hand, tray table inplace, and phone in reach. Continue with rec D/C plan to SNF. AVNI Romero/Aezem
--- NOTE | 2019-03-24 11:09 | NUR ---
PHYSICAL THERAPY Patient presented to therapy in supine with his visiting in the room with patient. Patient gives informed consent for treatment. Patient was identified by name and on wristband. Patient disconnects his own catheter line. Patient has IV infusing at this time. Patient transfers supine to sititng at EOB with MIN A x 1. Patient sit to stand from EOB with SBA. Patient ambulated with standard cane and CGA X 1 for 40' x 1 with some unsteadiness. Patient declined further treatment after the ambulation due to the gauze becoming loose on his groin area and beginning to leak a little. Patient transferred back to supine in bed with SBA. Patient's RN was called to attend to loose gauze on groin area. Patient was left in supine in bed with head of bed elevated, call light within reach and tray table near patient. Patient was 1:1 with this WEIGHT ANALYST for 14 minutes total. JEANA MEADE WEIGHT ANALYST
--- NOTE | 2019-03-24 15:02 | NUR ---
PT WAS DISCHARGE TO [facility] WHEN MEDICALLY STABLE. WENT TO SURGERY TODAY FOR WOUND CARE AND POSSIBLE WOUND VAC APPLICATION. WILL CONTINUE TO FOLLOW.
--- NOTE | 2019-03-24 17:40 | NUR ---
DR. CHAUDHARI IN TO SEE PT
--- NOTE | 2019-03-24 17:50 | NUR ---
DR. CHAUDHARI ORDERED TO D/C REYES. PT NO LONGER NEEDS R/T WOUND VAC.
--- NOTE | 2019-03-24 19:46 | NUR ---
CALLED DR. CHAUDHARI TO RECEIVE WOUND VAC ORDERS. SEE NEW ORDERS.
--- NOTE | 2019-03-24 21:49 | NUR ---
PATIENT C/O LEFT GROIN PAIN. NOTIFIED DR. GEORGE. SEE NEW ORDERS.
[2019-03-25] VITALS: BP 108/46
[2019-03-25 07:02] LABS: BASO % 0.4 % (0.0-1.0); EOS # 0.4 10*3/uL (0.0-0.4); EOS % 4.7 % (1.0-4.0); HEMATOCRIT 35.5 % (42.0-52.0); LYMPH # 0.9 10*3/uL (1.3-4.4); LYMPH % 11.7 % (27.0-41.0); MEAN CELL VOLUME 88.3 fl (80.0-94.0); MEAN CORPUSCULAR HGB 27.4 pg (27.0-31.0); MEAN PLATELET VOLUME 9.7 fl (9.6-12.3); MONO % 12.1 % (3.0-9.0); NEUT # 5.6 10*3/uL (2.3-7.9); NEUT % 70.8 % (47.0-73.0); PLATELET COUNT AUTOMATED 151 10*3/uL (130-400); RED BLOOD COUNT 4.02 10*6/uL (4.50-5.90); RED CELL DISTRI WIDTH 16.1 % (0-14.5); WHITE BLOOD COUNT 7.9 10*3/uL (4.8-10.8)
[2019-03-25 07:18] LABS: ALBUMIN 2.1 gm/dl (3.1-4.5); ALKALINE PHOSPHATASE 119 U/L (45-117); BUN 18 mg/dl (7-24); CHLORIDE 105 mmol/L (98-107); CREATININE 0.88 mg/dL (0.70-1.30); POTASSIUM 4.1 mmol/L (3.5-5.1); SGOT/AST 69 IU/L (3-35); SGPT/ALT 52 U/L (12-78); SODIUM 139 mmol/L (136-145); TOTAL PROTEIN 6.6 gm/dL (6.4-8.2)
[2019-03-25 08:00] VITALS: BP 118/76
--- NOTE | 2019-03-25 08:00 | NUR ---
ASSESSMENT COMPLETE, PT SITTING UP IN BED EATING BREAKFAST. NO COMPLAINTS AT THIS TIME. UROSTOMY INTACT, DRAINAGE BAG. WOUND VAC DRESSING INTACT AND DRAINING THIN DRAINAGE. WOUND VACK SET TO 125 PER ORDER.
--- NOTE | 2019-03-25 08:04 | NUR ---
Shift chart check completed.
[2019-03-25 12:00] VITALS: BP 109/48
--- NOTE | 2019-03-25 12:18 | NUR ---
HERMAN spoke with RN Hospitalist Coordinator Molly about patient and plans for discharge. Molly spoke with Dr. Ochoa about patient discharge. Molly stated patients discharge would be Thursday at the soonest. SUPERVISOR LENDING ACTIVITIES notified Kamilla since she will need to have a Wound Vac ordered for patient to return. -HERMAN Hays
--- NOTE | 2019-03-25 13:05 | NUR ---
OT NOTE Attempted to see pt this P.M. for oT session and upon arrival pt was sitting upright in the recliner. Pt stated that he was unable to complete therapy at this time due to having the wound vac in place. Educated pt that therapy can still be completed. Pt continued to decline at this time. Will check back at a later time/date and continue with POC as able. AVNI Romero/Azeem
--- NOTE | 2019-03-25 13:10 | NUR ---
PHYSICAL THERAPY Patient was sitting in chair upon this LOSS PREVENTION GUARD arriving in the patient's room. Patient declined therapy today , saying he has a wound vac now and doesn't want to dislodge it ,or cause his urostomy catheter to leak. Patient will be seen at later date for therapy for this reason. Patient does NOT want therapy today. JEANA MEADE LOSS PREVENTION GUARD
--- NOTE | 2019-03-25 14:19 | NUR ---
WOUND VAC ALARMING, NEGATIVE PRESSURE BLOCKAGE. DR. CHAUDHARI ON THE UNIT, MADE AWARE. HE WILL CHANGE DRESSING/CONTAINER
--- NOTE | 2019-03-25 14:48 | NUR ---
PHYSICAL THERAPY CO-SIGN I approve of the Physical Therapy notes written above. Shira Griffiths PT
--- NOTE | 2019-03-25 15:00 | NUR ---
ASSUMED CARE FOR THIS PT AT THIS TIME. FAMILY AT BEDSIDE. NO C/O VOICED AT PRESENT TIME. WOUND VAC DRAINING AT 125MMG MEDIUM CONTINUOUS W/OUT DIFF. CALL LIGHT IN REACH.
--- NOTE | 2019-03-25 15:06 | NUR ---
WOUND VAC REINFORCED DRESSING/TUBING/CONTAINER CHANGED
--- NOTE | 2019-03-25 15:46 | NUR ---
HERMAN was notified the patient is going to need 5 weeks of IV antibiotic Daptomycin. [facility] will not be able to cover the cost of this. Patient does have a Wound Vac in place. Per [employer] Neyda, patient will need a PICC Line placed. Will have to find alternative SNF. -HERMAN Hays
[2019-03-25 16:00] VITALS: BP 106/43
[2019-03-25 20:00] VITALS: BP 104/50
[2019-03-26] VITALS: BP 116/66
[2019-03-26 06:06] LABS: BASO % 0.4 % (0.0-1.0); EOS # 0.4 10*3/uL (0.0-0.4); EOS % 5.6 % (1.0-4.0); HEMATOCRIT 35.3 % (42.0-52.0); HEMOGLOBIN 10.9 g/dl (14.0-18.0); LYMPH # 1.2 10*3/uL (1.3-4.4); LYMPH % 15.8 % (27.0-41.0); MEAN CELL VOLUME 86.5 fl (80.0-94.0); MEAN CORPUSCULAR HGB 26.7 pg (27.0-31.0); MEAN CORPUSCULAR HGB CONC 30.9 g/dl (33.0-37.0); MEAN PLATELET VOLUME 9.7 fl (9.6-12.3); MONO # 0.9 10*3/uL (0.1-1.0); MONO % 11.9 % (3.0-9.0); NEUT # 5.2 10*3/uL (2.3-7.9); NEUT % 65.8 % (47.0-73.0); PLATELET COUNT AUTOMATED 158 10*3/uL (130-400); RED BLOOD COUNT 4.08 10*6/uL (4.50-5.90); RED CELL DISTRI WIDTH 16.3 % (0-14.5); WHITE BLOOD COUNT 7.8 10*3/uL (4.8-10.8)
[2019-03-26 06:32] LABS: ALKALINE PHOSPHATASE 119 U/L (45-117); BUN 18 mg/dl (7-24); CHLORIDE 104 mmol/L (98-107); POTASSIUM 3.9 mmol/L (3.5-5.1); SGOT/AST 45 IU/L (3-35); SGPT/ALT 48 U/L (12-78); SODIUM 139 mmol/L (136-145); TOTAL PROTEIN 6.7 gm/dL (6.4-8.2)
[2019-03-26 08:00] VITALS: BP 117/57
--- NOTE | 2019-03-26 11:09 | NUR ---
UROSTOMY BAG/WAFFER CHANGED
--- NOTE | 2019-03-26 11:46 | NUR ---
WOUND VAC OUTPUT NOT RECORDED OVERNIGHT, DRAINAGE THICK RED/YELLOW IN CANNISTER. WILL MONITOR FOR EXCESS DRAINAGE. WOUD VAC WITHOUT DIFFICULTY AT 125 ORDERED
[2019-03-26 12:00] VITALS: BP 132/49
--- NOTE | 2019-03-26 15:40 | NUR ---
urostomy bag leakinig, changed. hooked to weston bag.
[2019-03-26 16:00] VITALS: BP 117/57
[2019-03-26 20:00] VITALS: BP 119/71
--- NOTE | 2019-03-26 20:23 | NUR ---
PATIENT RESTING IN BED WITH NO NEEDS MADE. DENIES PAIN, BED IN LOWEST POSITION, CALL LIGHT IN REACH
[2019-03-27] VITALS: BP 116/67
--- NOTE | 2019-03-27 00:27 | NUR ---
PRN RESTORIL GIVEN AT THIS TIME. CALL LIGHT IS WITHIN REACH, WILL MONITOR EFFECT.
--- NOTE | 2019-03-27 03:27 | NUR ---
PATIENT RESTING IN BED WITH NO S/S OF DISTRESS. BED IN LOWEST POSITION, CALL LIGHT IN REACH
--- NOTE | 2019-03-27 04:07 | NUR ---
24 HR chart check completed.
[2019-03-27 06:43] LABS: BASO % 0.4 % (0.0-1.0); EOS # 0.5 10*3/uL (0.0-0.4); EOS % 5.4 % (1.0-4.0); HEMATOCRIT 35.1 % (42.0-52.0); LYMPH # 1.2 10*3/uL (1.3-4.4); LYMPH % 13.8 % (27.0-41.0); MEAN CELL VOLUME 86.5 fl (80.0-94.0); MEAN CORPUSCULAR HGB 27.1 pg (27.0-31.0); MEAN CORPUSCULAR HGB CONC 31.3 g/dl (33.0-37.0); MEAN PLATELET VOLUME 9.9 fl (9.6-12.3); MONO # 0.9 10*3/uL (0.1-1.0); MONO % 10.7 % (3.0-9.0); NEUT # 5.7 10*3/uL (2.3-7.9); PLATELET COUNT AUTOMATED 161 10*3/uL (130-400); RED BLOOD COUNT 4.06 10*6/uL (4.50-5.90); RED CELL DISTRI WIDTH 16.7 % (0-14.5); WHITE BLOOD COUNT 8.3 10*3/uL (4.8-10.8)
[2019-03-27 07:09] LABS: BUN 18 mg/dl (7-24); CHLORIDE 103 mmol/L (98-107); CREATININE 0.85 mg/dL (0.70-1.30); POTASSIUM 3.8 mmol/L (3.5-5.1); SODIUM 140 mmol/L (136-145)
[2019-03-27 08:00] VITALS: BP 122/55
--- NOTE | 2019-03-27 09:34 | NUR ---
REFUSING NYSTATIN CREAM APPLICATION AND PO LASIX AT THIS TIME. STATES HE WANTS NYSTATIN CREAM APPLIED ONCE HE GETS BACK INTO BED. CURRENTLY SITTING UPRIGHT IN CHAIR. ALSO STATES HE ONLY TAKES LASIX NEEDED HOME AND DOES NOT WANT IT OR NEED IT TODAY. SEE MAR.
--- NOTE | 2019-03-27 09:57 | NUR ---
NOTIFIED THAT PT REFUSED PO LASIX TODAY. STATES HE ONLY TAKES THIS ONCE A DAY NEEDED AT HOME WHEN HE NOTICES SWELLING IN HIS LEGS. UPDATED HOME MED REC.
[2019-03-27 12:00] VITALS: BP 122/62
[2019-03-27 16:00] VITALS: BP 133/58
--- NOTE | 2019-03-27 19:41 | NUR ---
PATIENT RESTING IN BED WITH NO S/S OF DISTRESS, BED IN LOWEST POSITION, CALL LIGHT IN REACH
[2019-03-27 20:00] VITALS: BP 121/52
--- NOTE | 2019-03-27 22:18 | NUR ---
MEDICATED WITH PRN NORCO FOR C/O COCCYX PAIN RATED 5/10 ON A 0/10 PAIN SCALE
--- NOTE | 2019-03-27 23:51 | NUR ---
MEDICATED WITH PRN RESTORIL FOR C/O SLEEPLESSNESS. WILL MONITOR
[2019-03-28] VITALS: BP 114/55
[2019-03-28 06:30] LABS: BASO % 0.5 % (0.0-1.0); EOS # 0.5 10*3/uL (0.0-0.4); HEMATOCRIT 34.5 % (42.0-52.0); HEMOGLOBIN 10.8 g/dl (14.0-18.0); LYMPH # 1.1 10*3/uL (1.3-4.4); LYMPH % 13.4 % (27.0-41.0); MEAN CELL VOLUME 85.4 fl (80.0-94.0); MEAN CORPUSCULAR HGB 26.7 pg (27.0-31.0); MEAN CORPUSCULAR HGB CONC 31.3 g/dl (33.0-37.0); MEAN PLATELET VOLUME 9.4 fl (9.6-12.3); MONO # 0.9 10*3/uL (0.1-1.0); MONO % 10.4 % (3.0-9.0); NEUT # 5.7 10*3/uL (2.3-7.9); NEUT % 68.8 % (47.0-73.0); PLATELET COUNT AUTOMATED 167 10*3/uL (130-400); RED BLOOD COUNT 4.04 10*6/uL (4.50-5.90); RED CELL DISTRI WIDTH 16.9 % (0-14.5); WHITE BLOOD COUNT 8.2 10*3/uL (4.8-10.8)
[2019-03-28 06:41] LABS: BUN 18 mg/dl (7-24); CHLORIDE 105 mmol/L (98-107); POTASSIUM 4.1 mmol/L (3.5-5.1); SODIUM 137 mmol/L (136-145)
[2019-03-28 06:43] LABS: CREATININE 0.85 mg/dL (0.70-1.30)
[2019-03-28 08:00] VITALS: BP 106/50
--- NOTE | 2019-03-28 08:22 | NUR ---
Still waiting on acceptance from [facility] DELIVERY AND INSTALLATION SUBCONTRACTOR [facility] -HERMAN Hays
[2019-03-28] MEDS ORDERED: CUBICIN500 MG IV (09:42)
--- NOTE | 2019-03-28 10:45 | NUR ---
PHYSICAL THERAPY Patient seen this am 1:1 for therapy visit and was sitting up in bedside chair upon therapist arrival. Patient identified by name / and presented with L inner thigh wound vac. Patient reports no c/o's pain this session and was fairly pleasant this morning. Patient agreed to and performed several sit to stand transfers, SBA, tolerating 4 minutes first attempt and 2.5 minutes second trial, SBA, without AD. Patient stated he did not feel comfortable ambulating secondary to fear of wound vac hose irritation with c/o pain. Patient tolerated all treatment without further c/o and remained in bedside chair with call light and telephone as his Girlfriend arrived for visit. Will continue per POC as tolerated, total treatment time 14 minutes. Chi Chavez, MORNING NEWS ANCHOR
--- NOTE | 2019-03-28 11:00 | NUR ---
OT NOTE Pt was seen this A.M. 1:1 for 15 minute OT session. Upon arrival pt was sitting upright in the recliner. Pt identified by name and and had no complaints at this time. Pt presented to therapy with wound vac in place which remained in place throughout entire session. Pt completed multiple sit to stand transfers from chair level with SBA. Challenged pt's static standing tolerance needed for increased I in self care tasks and functional transfers. Pt was able to tolerate aprox 4 minutes at a time before sitting due to fatigue. Pt declined completing any other tasks at this time stating "it will mess my wound vac and waffle up causing them to leak, I am only doing this." Pt was left sitting upright in the recliner with call light in hand, tray table in place, and phone in reach. Continue with rec D/C plan to SNF. JERONIMO Romero
--- NOTE | 2019-03-28 11:40 | NUR ---
OPTICAL EFFECTS LAYOUT PERSON faxed script for Daptomycin to [facility]. -HERMAN Hays
[2019-03-28 12:00] VITALS: BP 112/68
--- NOTE | 2019-03-28 12:21 | NUR ---
VISITOR IN ROOM, NO VOICED COMPLAINTS. CALL LIGHT IN REACH.
--- NOTE | 2019-03-28 12:33 | NUR ---
Patient has been accepted at [facility]. Patient will need PICC Line placed. HERMAN notified Case roman Faye. -HERMAN Hays
--- NOTE | 2019-03-28 13:39 | NUR ---
CALLED TO CHECK IN ON PT AND STATUS. NO NEW ORDERS REC'D. SAID PT WOULD NEED TO FOLLOW-UP IN WOUND CARE CLINIC ON DISCHARGE AND TO FOLLOW CONSULT DC ORDERS.
--- NOTE | 2019-03-28 14:29 | NUR ---
TECHNICAL PHOTOGRAPHER received notice from [facility], that the Wound Vac they ordered is not compatable with our wound vac. TECHNICAL PHOTOGRAPHER reached out to Dr. Corona who stated the patients Wound Vac cannot be changed. Dr. Corona stated that the patient would remain here til . He asked that [facility] bring thier Wound Vac on Thursday to have it applied during while in the OR. TECHNICAL PHOTOGRAPHER spoke with Sample Patternmaker Neyda, ODALIS Michelle, and RN Hospitalist Coordinator Molly about this. [facility] will have their wound vac here on Thursday. -HERMAN Hays
--- NOTE | 2019-03-28 15:21 | NUR ---
HERMAN spoke with RN Hospitalist Coordinator Molly. Who asked if SHAHIDA Norton would approve the patients current Wound Vac to go with the patient to [facility]. WEATHER OBSERVER spoke with Trestle Mainternance Laborer Neyda who contacted SHAHIDA Norton who stated as long as Dr. Deluca would take responsibility for the Wound Vac. Per RN Hospitalist Coordinator Molly, Dr. Deluca agreed to this. HERMAN spoke with Wes Cordobas. She is aware the plan is for the patient to return on to have the wound vacs exchanged while the patient is in the OR. WEATHER OBSERVER contacted ODALIS Michelle who stated the floor would arrange transportation as she just got an admission. Wes Whitehead is aware. -HERMAN Hays
[2019-03-28] MEDS ORDERED: XARE20MG PO (15:29)
[2019-03-28] MEDS ORDERED: PLAVIX75 M1 PO (15:29)
[2019-03-28 16:00] VITALS: BP 132/75
--- NOTE | 2019-03-28 16:29 | NUR ---
WOUND PICS/MEASUREMENTS TAKEN FOR DISCHARGE.
--- NOTE | 2019-03-28 16:32 | NUR ---
WENT TO FLOOR TO TALK WITH PT ABOUT NOT BEING ABLE TO GET MICHAEL OF HIS DAUGHTERS TO LET THEM KNOW HE WAS GOING TO [facility]. PT TRIED TO CALL FROM ROOM AND WAS NOT ABLE TO REACH THEM. GAVE ME A NUMBER FOR [facility]Z WHO HE SAID HE WAS PUTTING IN CHARGE. NO ANSWER. LEFT MESSAGE FOR HER THAT HE WAS GOING TO GO [facility] AND IF SHE HAD ANY QUESTIONS TO CALL 5TH FLOOR.
--- NOTE | 2019-03-28 18:14 | NUR ---
UROSTOMY CHANGED. TOLERATED WELL. WOUND VAC CANISTER CHANGED. TOTAL OF 300CC PURULENT DRAINAGE IN CANISTER.
--- NOTE | 2019-03-28 18:59 | NUR ---
NURSE TO NURSE REPORT GIVEN TO UMU JACOBO AT [facility].
--- NOTE | 2019-03-28 19:05 | NUR ---
Discharge instructions reviewed with patient/family. Patient receptive and verbalizes understanding. Follow-up care arranged. Written instructions given to patient/family. PIPO PUENTE
--- NOTE | 2019-03-29 07:36 | NUR ---
OCCUPATIONAL THERAPY CO-SIGN I approve of the Occupational Therapy notes written above. NELI NEWMNA OTR/Azeem
--- NOTE | 2019-03-29 11:10 | NUR ---
TALKED TO DR ROJAS AND EXPLAINED THAT PT HAD SIGNED OUT OF FACILITY AND WAS CURRENTLY IN WOUND CARE AT [facility]. ALSO THAT PT REFUSES TO GO BACK TO [facility] AND THAT NO ONE ELSE WOULD ACCEPT PT ON DAPTOMYCIN DUE TO COST. SHE SAYS PT CAN GO ON ZYVOX PO 600MG BID FOR 4 WEEKS, AND WOULD NEED TO HAVE BLOOD WORK WEEKLY, CBC,BMP,ESR AND CRP. SHE ALSO STATES SHE IS NOT IN FACILITY TO WRITE SCRIPS AND TO ASK DR CHAUDHARI TO WRITE THEM. CALLED WOUND CARE AND GAVE INFORMATION TO JAYY TO PASS ON TO DR CHAUDHARI. ALSO SPOKE WITH ERIC SUTTON AND SHE IS TALKING WITH SANCHO FROM [facility] TO SEE IF PT COULD GO THERE. WILL CONTINUE TO FOLLOW.
--- NOTE | 2019-03-29 11:18 | NUR ---
PRINTED CIRCUIT BOARD PCB DESIGNER faxed patients reveiw to Kamilla for reconsideration. -HERMAN Hays
--- NOTE | 2019-03-29 15:36 | NUR ---
DENTAL AIDE received notice early this morning the patient left [facility] and arrived at this facilities Wound Care Clinic. After speaking with Graduate Assistant Neyda. The patient was referred to [facility]. Patient insurance is changing as of Apr 13 2019 and they are unable to accept the patient. DENTAL AIDE faxed referral to [facility]. They were able to take the patient if the Daptomycin was able to be changed. The patient was able to have the daptomycin changed to Zyvox and the patient is supposed to go through our pharmacy to have it with him when he goes to [place] because of the cost of the facility being $11,000.00 for the 4 weeks it is needed. DENTAL AIDE and Graduate Assistant spoke with Dr. Corona. [place] is able to accept the patient after his procedure to change out our facilities Wound Vac to a Wound Vac provided from [facility] for out patient. When medically stable patient is going to be transported by his sister to [place]. HERMAN completed new HENs as the patient left [facility]. -HERMAN Hays
--- NOTE | 2019-03-29 15:48 | NUR ---
I approve of the Physical Therapy notes written above. Shira Griffiths PT
--- NOTE | 2019-03-29 22:14 | NUR ---
ACCESSED PATIENT CHART D/T JUAREZ CHAVIS NURSE FROM [facility] IN [place] REGARDING CLARIFICATION ON OUTPATIENT ANTIBIOTICS. BEING TOLD PATIENT WAS ADMITTED THERE TODAY.
[2019-04-07] MEDS ORDERED: NORCO 5-325 TA1 EACH PO (13:36)
== END 2019-03-28 19:31 | disposition other institution (70) | DRG 856 ==
LOC: ED 11:10 → 5E 13:50
PROVIDERS: Emergency Medicine; Family Medicine; Hospitalist; Internal Medicine; Physician Assistant; ADMIT Internal Medicine
DX: T81.49XA Infection following a procedure, other surgical site, initial encounter (principal); E43 Unspecified severe protein-calorie malnutrition; N39.0 Urinary tract infection, site not specified; E87.2 Acidosis; E87.1 Hypo-osmolality and hyponatremia; I50.22 Chronic systolic (congestive) heart failure; I25.810 Atherosclerosis of coronary artery bypass graft(s) without angina pectoris; L03.116 Cellulitis of left lower limb; J96.10 Chronic respiratory failure, unspecified whether with hypoxia or hypercapnia; L02.214 Cutaneous abscess of groin; K57.90 Diverticulosis of intestine, part unspecified, without perforation or abscess without bleeding; E66.01 Morbid (severe) obesity due to excess calories; B96.20 Unspecified Escherichia coli [E. coli] as the cause of diseases classified elsewhere; B95.2 Enterococcus as the cause of diseases classified elsewhere; L89.156 Pressure-induced deep tissue damage of sacral region; L98.8 Other specified disorders of the skin and subcutaneous tissue; E78.5 Hyperlipidemia, unspecified; I11.0 Hypertensive heart disease with heart failure; I48.91 Unspecified atrial fibrillation; R74.8 Abnormal levels of other serum enzymes; D64.9 Anemia, unspecified; E11.65 Type 2 diabetes mellitus with hyperglycemia; E11.42 Type 2 diabetes mellitus with diabetic polyneuropathy; S31.104A Unspecified open wound of abdominal wall, left lower quadrant without penetration into peritoneal cavity, initial encounter; X58.XXXA Exposure to other specified factors, initial encounter; Y93.89 Activity, other specified; Y99.8 Other external cause status; Z88.1 Allergy status to other antibiotic agents; Z88.8 Allergy status to other drugs, medicaments and biological substances; Z95.1 Presence of aortocoronary bypass graft; Z95.5 Presence of coronary angioplasty implant and graft; Z95.0 Presence of cardiac pacemaker; Z98.49 Cataract extraction status, unspecified eye; Z87.891 Personal history of nicotine dependence; Z82.49 Family history of ischemic heart disease and other diseases of the circulatory system; Z83.3 Family history of diabetes mellitus; Y83.8 Other surgical procedures as the cause of abnormal reaction of the patient, or of later complication, without mention of misadventure at the time of the procedure; Z85.51 Personal history of malignant neoplasm of bladder; I25.2 Old myocardial infarction; Z85.46 Personal history of malignant neoplasm of prostate; Z79.82 Long term (current) use of aspirin; Z79.899 Other long term (current) drug therapy; Z79.02 Long term (current) use of antithrombotics/antiplatelets; Z68.27 Body mass index [BMI] 27.0-27.9, adult; Y92.89 Other specified places as the place of occurrence of the external cause

== ENCOUNTER → 2019-03-29 | Day surgery (SDC) | payer MEDICARE ==
[~2019-03-29] VITALS: Ht 172.7 cm; Wt 82.6 kg
[~2019-03-29] MED LIST changes: +CO Q-10200 MG PO; +CUBICIN500 MG IV; +DIGOX125 MCG PO; +METOPROLOL SUCC50 M1 PO
[2019-03-29 13:15] VITALS: BP 124/61
[2019-03-29 14:24] VITALS: BP 113/60
[2019-03-29 14:39] VITALS: BP 117/54
[2019-03-29 14:54] VITALS: BP 127/55
== END | disposition home or self-care (01) ==
LOC: SDC 12:56
DX: S71.102D Unspecified open wound, left thigh, subsequent encounter (principal); S51.802D Unspecified open wound of left forearm, subsequent encounter; L03.116 Cellulitis of left lower limb; I25.10 Atherosclerotic heart disease of native coronary artery without angina pectoris; I48.91 Unspecified atrial fibrillation; I11.0 Hypertensive heart disease with heart failure; I50.22 Chronic systolic (congestive) heart failure; E11.42 Type 2 diabetes mellitus with diabetic polyneuropathy; D64.9 Anemia, unspecified; E87.1 Hypo-osmolality and hyponatremia; E87.2 Acidosis; N39.0 Urinary tract infection, site not specified; I25.2 Old myocardial infarction; Z78.9 Other specified health status; Z95.5 Presence of coronary angioplasty implant and graft; Z79.899 Other long term (current) drug therapy; W34.00XD Accidental discharge from unspecified firearms or gun, subsequent encounter; Z82.49 Family history of ischemic heart disease and other diseases of the circulatory system

== ENCOUNTER → 2019-03-31 | Day surgery (SDC) | payer MEDICARE ==
--- NOTE | 2019-03-29 22:09 | NUR ---
ACCESSED PATIENT CHART D/T JUAREZ CHAVIS NURSE FROM [facility] IN [place] REGARDING CLARIFICATION ON OUTPATIENT ANTIBIOTICS.
[~2019-03-31] VITALS: Ht 172.7 cm; Wt 82.6 kg
[~2019-03-31] MED LIST changes: +NORCO 5-325 TA1 EACH PO
[2019-03-31 11:00] VITALS: BP 117/49
[2019-03-31 12:26] VITALS: BP 94/44
[2019-03-31 12:40] VITALS: BP 110/52
[2019-03-31 12:58] VITALS: BP 121/54
== END | disposition home or self-care (01) ==
LOC: SDC 09:00
DX: S71.102A Unspecified open wound, left thigh, initial encounter (principal); I10 Essential (primary) hypertension; I25.10 Atherosclerotic heart disease of native coronary artery without angina pectoris; E78.5 Hyperlipidemia, unspecified; I25.2 Old myocardial infarction; E11.9 Type 2 diabetes mellitus without complications; F41.9 Anxiety disorder, unspecified; Z95.1 Presence of aortocoronary bypass graft; Z86.14 Personal history of Methicillin resistant Staphylococcus aureus infection; Z87.891 Personal history of nicotine dependence; Z95.5 Presence of coronary angioplasty implant and graft; Z98.890 Other specified postprocedural states; Z79.899 Other long term (current) drug therapy; Z82.49 Family history of ischemic heart disease and other diseases of the circulatory system; X58.XXXA Exposure to other specified factors, initial encounter; Y93.89 Activity, other specified; Y92.89 Other specified places as the place of occurrence of the external cause; Y99.8 Other external cause status

== ENCOUNTER → 2019-04-07 | Day surgery (SDC) | payer MEDICARE ==
[~2019-04-07] VITALS: Ht 172.7 cm; Wt 82.6 kg
[2019-04-07 11:17] VITALS: BP 122/34
[2019-04-07 12:51] VITALS: BP 108/52
[2019-04-07 13:06] VITALS: BP 122/55
[2019-04-07 13:21] VITALS: BP 116/57
[2019-04-07 13:43] VITALS: BP 112/65
== END | disposition home or self-care (01) ==
LOC: SDC 04-05 11:00
DX: S71.102A Unspecified open wound, left thigh, initial encounter (principal); T81.49XA Infection following a procedure, other surgical site, initial encounter; I11.0 Hypertensive heart disease with heart failure; I50.22 Chronic systolic (congestive) heart failure; I25.10 Atherosclerotic heart disease of native coronary artery without angina pectoris; E11.42 Type 2 diabetes mellitus with diabetic polyneuropathy; E87.1 Hypo-osmolality and hyponatremia; E11.40 Type 2 diabetes mellitus with diabetic neuropathy, unspecified; F41.9 Anxiety disorder, unspecified; F32.9 Major depressive disorder, single episode, unspecified; Z82.49 Family history of ischemic heart disease and other diseases of the circulatory system; D64.9 Anemia, unspecified; E87.2 Acidosis; I25.2 Old myocardial infarction; N39.0 Urinary tract infection, site not specified; Z95.5 Presence of coronary angioplasty implant and graft; Z79.899 Other long term (current) drug therapy; Z78.9 Other specified health status; X58.XXXA Exposure to other specified factors, initial encounter; Y93.89 Activity, other specified; Y92.89 Other specified places as the place of occurrence of the external cause; Y99.8 Other external cause status

== ENCOUNTER 2019-06-03 14:20 | Inpatient (IN) | payer OTHER ==
[~2019-06-03] VITALS: Ht 172.7 cm; Wt 86.7 kg
[2019-06-03 14:43] VITALS: BP 103/47
[2019-06-03 16:31] LABS: BILIRUBIN NEGATIVE (NEGATIVE); BLOOD 3+ (NEGATIVE); CLARITY TURBID (CLEAR); COLOR STRAW (YELLOW); GLUCOSE NEGATIVE (NEGATIVE); KETONE NEGATIVE (NEGATIVE); LEUKO ESTERASE 3+ (NEGATIVE); NITRITE POSITIVE (NEGATIVE); UROBILINOGEN 0.2 E.U./dl (0.2-1.0)
[2019-06-03 16:36] LABS: BACTERIA 4+; EPITHELIAL CELLS 0-2; MUCOUS TRACE; RBC TNTC rbc/hpf (0-2); WBC 21-30 wbc/hpf (0-5)
[2019-06-03 16:50] LABS: BASO % 0.3 % (0.0-1.0); EOS # 0.3 10*3/uL (0.0-0.4); EOS % 3.7 % (1.0-4.0); HEMATOCRIT 32.2 % (42.0-52.0); HEMOGLOBIN 9.7 g/dl (14.0-18.0); LYMPH # 1.1 10*3/uL (1.3-4.4); LYMPH % 14.2 % (27.0-41.0); MEAN CELL VOLUME 91.2 fl (80.0-94.0); MEAN CORPUSCULAR HGB 27.5 pg (27.0-31.0); MEAN CORPUSCULAR HGB CONC 30.1 g/dl (33.0-37.0); MEAN PLATELET VOLUME 10.1 fl (9.6-12.3); MONO # 0.7 10*3/uL (0.1-1.0); MONO % 9.2 % (3.0-9.0); NEUT # 5.4 10*3/uL (2.3-7.9); NEUT % 72.2 % (47.0-73.0); PLATELET COUNT AUTOMATED 216 10*3/uL (130-400); RED BLOOD COUNT 3.53 10*6/uL (4.50-5.90); RED CELL DISTRI WIDTH 17.6 % (0-14.5); WHITE BLOOD COUNT 7.5 10*3/uL (4.8-10.8)
[2019-06-03 17:07] LABS: ALBUMIN 2.5 gm/dl (3.1-4.5); ALKALINE PHOSPHATASE 106 U/L (45-117); BUN 18 mg/dl (7-24); CHLORIDE 106 mmol/L (98-107); CREATININE 1.12 mg/dL (0.70-1.30); POTASSIUM 4.2 mmol/L (3.5-5.1); SGOT/AST 22 IU/L (3-35); SGPT/ALT 19 U/L (12-78); SODIUM 139 mmol/L (136-145); TOTAL PROTEIN 7.5 gm/dL (6.4-8.2)
[2019-06-03 20:00] VITALS: BP 126/47
[2019-06-03] MEDS ORDERED: METOPROLOL SUC100 M1 PO (22:35)
[2019-06-03] MEDS ORDERED: POTASSIUM CHLO10 ME5 PO (22:36)
[2019-06-04] VITALS: BP 120/59
[2019-06-04 06:21] LABS: BASO % 0.3 % (0.0-1.0); EOS # 0.3 10*3/uL (0.0-0.4); EOS % 4.8 % (1.0-4.0); HEMATOCRIT 31.8 % (42.0-52.0); HEMOGLOBIN 9.5 g/dl (14.0-18.0); LYMPH % 14.8 % (27.0-41.0); MEAN CELL VOLUME 91.6 fl (80.0-94.0); MEAN CORPUSCULAR HGB 27.4 pg (27.0-31.0); MEAN CORPUSCULAR HGB CONC 29.9 g/dl (33.0-37.0); MEAN PLATELET VOLUME 10.1 fl (9.6-12.3); MONO # 0.6 10*3/uL (0.1-1.0); MONO % 8.8 % (3.0-9.0); NEUT # 4.7 10*3/uL (2.3-7.9); NEUT % 70.9 % (47.0-73.0); PLATELET COUNT AUTOMATED 190 10*3/uL (130-400); RED BLOOD COUNT 3.47 10*6/uL (4.50-5.90); RED CELL DISTRI WIDTH 17.6 % (0-14.5); WHITE BLOOD COUNT 6.7 10*3/uL (4.8-10.8)
[2019-06-04 06:52] LABS: BUN 16 mg/dl (7-24); CHLORIDE 106 mmol/L (98-107); CHOLESTEROL 118 mg/dL (<200); HDL CHOLESTEROL 30 mg/dl (40-60); LDL CHOLESTEROL 54 mg/dL (9-159); PHOSPHOROUS 3.8 mg/dL (2.5-4.9); SODIUM 140 mmol/L (136-145); TRIGLYCERIDES 172 mg/dl (<150); VLDL CHOLESTEROL 34 mg/dL (6-40)
[2019-06-04 07:03] LABS: DIGOXIN 0.66 ng/ml (0.8-2.0)
[2019-06-04 07:57] LABS: VITAMIN D, 25-HYDROXY 20.7 ng/mL (30-100)
[2019-06-04 08:00] VITALS: BP 110/56
[2019-06-04 12:00] VITALS: BP 111/60
[2019-06-04 16:00] VITALS: BP 113/49
[2019-06-04 20:00] VITALS: BP 108/54; BP 130/48
[2019-06-05] VITALS: BP 130/48
[2019-06-05 06:38] LABS: BASO % 0.4 % (0.0-1.0); EOS # 0.3 10*3/uL (0.0-0.4); EOS % 3.6 % (1.0-4.0); HEMATOCRIT 31.9 % (42.0-52.0); HEMOGLOBIN 9.7 g/dl (14.0-18.0); LYMPH # 0.8 10*3/uL (1.3-4.4); LYMPH % 9.8 % (27.0-41.0); MEAN CELL VOLUME 90.1 fl (80.0-94.0); MEAN CORPUSCULAR HGB 27.4 pg (27.0-31.0); MEAN CORPUSCULAR HGB CONC 30.4 g/dl (33.0-37.0); MEAN PLATELET VOLUME 9.7 fl (9.6-12.3); MONO # 0.7 10*3/uL (0.1-1.0); NEUT # 6.1 10*3/uL (2.3-7.9); NEUT % 76.9 % (47.0-73.0); PLATELET COUNT AUTOMATED 180 10*3/uL (130-400); RED BLOOD COUNT 3.54 10*6/uL (4.50-5.90); RED CELL DISTRI WIDTH 17.6 % (0-14.5); WHITE BLOOD COUNT 7.9 10*3/uL (4.8-10.8)
[2019-06-05 06:49] LABS: BUN 16 mg/dl (7-24); CHLORIDE 108 mmol/L (98-107); CREATININE 0.97 mg/dL (0.70-1.30); POTASSIUM 4.2 mmol/L (3.5-5.1); SODIUM 142 mmol/L (136-145)
[2019-06-05 08:00] VITALS: BP 121/46
[2019-06-05 12:00] VITALS: BP 111/52
[2019-06-05 16:00] VITALS: BP 114/92
[2019-06-05 20:00] VITALS: BP 121/59
[2019-06-06] VITALS: BP 122/51
[2019-06-06 06:53] LABS: BASO % 0.1 % (0.0-1.0); EOS # 0.4 10*3/uL (0.0-0.4); EOS % 5.2 % (1.0-4.0); HEMATOCRIT 30.9 % (42.0-52.0); HEMOGLOBIN 9.4 g/dl (14.0-18.0); LYMPH # 0.9 10*3/uL (1.3-4.4); LYMPH % 12.3 % (27.0-41.0); MEAN CELL VOLUME 90.6 fl (80.0-94.0); MEAN CORPUSCULAR HGB 27.6 pg (27.0-31.0); MEAN CORPUSCULAR HGB CONC 30.4 g/dl (33.0-37.0); MONO # 0.6 10*3/uL (0.1-1.0); MONO % 8.6 % (3.0-9.0); NEUT # 5.2 10*3/uL (2.3-7.9); NEUT % 73.5 % (47.0-73.0); PLATELET COUNT AUTOMATED 179 10*3/uL (130-400); RED BLOOD COUNT 3.41 10*6/uL (4.50-5.90); RED CELL DISTRI WIDTH 17.6 % (0-14.5); WHITE BLOOD COUNT 7.1 10*3/uL (4.8-10.8)
[2019-06-06 08:00] VITALS: BP 131/53
[2019-06-06 12:00] VITALS: BP 120/49
[2019-06-06 16:00] VITALS: BP 115/49
[2019-06-06 20:00] VITALS: BP 112/85
[2019-06-07] VITALS: BP 128/48
[2019-06-07 08:00] VITALS: BP 114/57
[2019-06-07 12:00] VITALS: BP 128/64
[2019-06-07 16:00] VITALS: BP 116/49
[2019-06-07 20:00] VITALS: BP 118/51
[2019-06-08] VITALS: BP 119/56
[2019-06-08 06:34] LABS: CREATININE 0.93 mg/dL (0.70-1.30)
[2019-06-08 08:00] VITALS: BP 130/56
[2019-06-08 09:41] VITALS: BP 105/57
[2019-06-08 12:00] VITALS: BP 102/53
[2019-06-08] MEDS ORDERED: SEPTDS PO (15:22)
[2019-06-08 16:00] VITALS: BP 110/56
== END 2019-06-08 17:13 | disposition home health service (06) | DRG 602 ==
LOC: ED 14:20 → EDHOLD 17:55 → 5E 17:55
PROVIDERS: Internal Medicine; Nurse Practitioner; ADMIT Emergency Medicine
PROC: B548ZZA Ultrasonography of Superior Vena Cava, Guidance (ICD-10-PCS; principal; 2019-06-08)
PROC: 02HV33Z Insertion of Infusion Device into Superior Vena Cava, Percutaneous Approach (ICD-10-PCS; principal; 2019-06-08)
DX: L02.416 Cutaneous abscess of left lower limb (principal); E43 Unspecified severe protein-calorie malnutrition; N39.0 Urinary tract infection, site not specified; I50.22 Chronic systolic (congestive) heart failure; J96.10 Chronic respiratory failure, unspecified whether with hypoxia or hypercapnia; M86.9 Osteomyelitis, unspecified; L03.116 Cellulitis of left lower limb; D64.9 Anemia, unspecified; E11.42 Type 2 diabetes mellitus with diabetic polyneuropathy; I25.10 Atherosclerotic heart disease of native coronary artery without angina pectoris; K57.90 Diverticulosis of intestine, part unspecified, without perforation or abscess without bleeding; I48.91 Unspecified atrial fibrillation; E66.9 Obesity, unspecified; S31.109A Unspecified open wound of abdominal wall, unspecified quadrant without penetration into peritoneal cavity, initial encounter; M26.609 Unspecified temporomandibular joint disorder, unspecified side; R31.21 Asymptomatic microscopic hematuria; E55.9 Vitamin D deficiency, unspecified; B95.62 Methicillin resistant Staphylococcus aureus infection as the cause of diseases classified elsewhere; B96.1 Klebsiella pneumoniae [K. pneumoniae] as the cause of diseases classified elsewhere; E11.69 Type 2 diabetes mellitus with other specified complication; Z68.28 Body mass index [BMI] 28.0-28.9, adult; Z88.1 Allergy status to other antibiotic agents; S71.132S Puncture wound without foreign body, left thigh, sequela; W34.00XS Accidental discharge from unspecified firearms or gun, sequela; W34.00XD Accidental discharge from unspecified firearms or gun, subsequent encounter; I25.2 Old myocardial infarction; Z88.8 Allergy status to other drugs, medicaments and biological substances; Z79.899 Other long term (current) drug therapy; Z95.1 Presence of aortocoronary bypass graft; Z95.5 Presence of coronary angioplasty implant and graft; Z85.46 Personal history of malignant neoplasm of prostate; Z85.51 Personal history of malignant neoplasm of bladder; Z98.49 Cataract extraction status, unspecified eye; Z87.891 Personal history of nicotine dependence; Z82.49 Family history of ischemic heart disease and other diseases of the circulatory system; Z83.3 Family history of diabetes mellitus; Z95.0 Presence of cardiac pacemaker

== ENCOUNTER 2019-08-13 15:50 | Inpatient (IN) | payer OTHER ==
[~2019-08-13] VITALS: Ht 172.7 cm; Wt 93.5 kg
[~2019-08-13 15:50] MED LIST changes: +POTASSIUM CHLO10 ME5 PO; +SEPTDS PO
--- NOTE | 2019-08-13 16:04 | NUR ---
PT RESTING QUIETLY, NO DISTRESDS NOTED, NO ARRHYTHMIA NOTED. PT HAS NO COMPLAINTS.
[2019-08-13 16:12] VITALS: BP 136/67
[2019-08-13 16:36] LABS: HEMATOCRIT 26.9 % (42.0-52.0); MEAN CELL VOLUME 89.1 fl (80.0-94.0); MEAN CORPUSCULAR HGB 26.2 pg (27.0-31.0); MEAN CORPUSCULAR HGB CONC 29.4 g/dl (33.0-37.0); MEAN PLATELET VOLUME 9.6 fl (9.6-12.3); PLATELET COUNT AUTOMATED 277 10*3/uL (130-400); RED BLOOD COUNT 3.02 10*6/uL (4.50-5.90); RED CELL DISTRI WIDTH 21.2 % (0-14.5); WHITE BLOOD COUNT 8.5 10*3/uL (4.8-10.8)
[2019-08-13 16:50] LABS: ACT PARTIAL THROMBO TIME 27.9 SECONDS (20.0-32.1); INTERNATIONAL NORM RATIO 1.3 (2.0-3.5)
[2019-08-13 16:54] LABS: ALBUMIN 2.5 gm/dl (3.1-4.5); ALKALINE PHOSPHATASE 126 U/L (45-117); BUN 31 mg/dl (7-24); CHLORIDE 105 mmol/L (98-107); CREATININE 1.19 mg/dL (0.70-1.30); POTASSIUM 4.6 mmol/L (3.5-5.1); SGOT/AST 49 IU/L (3-35); SGPT/ALT 64 U/L (12-78); SODIUM 139 mmol/L (136-145); TOTAL PROTEIN 7.2 gm/dL (6.4-8.2)
[2019-08-13 16:56] VITALS: BP 128/72
[2019-08-13 16:56] LABS: TROPONIN I < 0.015 ng/ml (<0.045)
[2019-08-13 17:00] VITALS: BP 124/51
--- NOTE | 2019-08-13 17:00 | NUR ---
CCA 79, admitted to , under the services of YAZ Márquez DO with a diagnosis of ARRHYTHMIA. Chief complaint is DEFIBRILLATOR WENT OFF AT HOME. Patient arrived via bed from ER. Monitor applied. Initial assessment completed. Vital signs taken and recorded. YAZ MÁRQUEZ DO notified of admission to the unit. Orders received. See assessment for past medical history, medications and allergies. Patient and/or family oriented to unit. [facility] visitation policy reviewed. Clothing/patient valuable form completed. MICHAEL WISDOM
[2019-08-13 17:03] LABS: PLATELET SUFFICIENCY NORMAL (NORMAL); POLYCHROMASIA SLIGHT; TOTAL CELLS COUNTED 100 #CELLS
[2019-08-13 17:05] LABS: MICROCYTOSIS SLIGHT
--- NOTE | 2019-08-13 17:42 | NUR ---
[employer] PACEMAKER CALLED AT THIS TIME REGARDING INTERROGATION.
--- NOTE | 2019-08-13 17:58 | NUR ---
REP FROM [employer] CALLED AND WILL SEE PATIENT IN AM.
[2019-08-13] MEDS ORDERED: PROBIOTIC1 EAC4 PO (18:37)
--- NOTE | 2019-08-13 18:37 | NUR ---
MED REC UPDATED PER LIST PROVIDED BY PATIENT
--- NOTE | 2019-08-13 18:45 | NUR ---
NOTIFIED OF CONSULT.
[2019-08-13 20:00] VITALS: BP 125/43
--- NOTE | 2019-08-13 20:00 | NUR ---
TOOK PATIENT PARKER BAG TO [place]ENILLE MACHINE OPERATOR TO HIS UROSOTOMY. PUT TUBI STONE SANDBLASTER ON PT. PT. C/O BEING SOB; APPLIED 02 AT 2LPM VIA NASAL CANNULA. PT. RESTING MORE COMFORTABLY; CALL LIGHT WITHIN REACH.
--- NOTE | 2019-08-13 20:31 | NUR ---
DOWN TO LUNG SCAN.
--- NOTE | 2019-08-13 21:30 | NUR ---
BACK FROM LUNG SCAN.
--- NOTE | 2019-08-13 22:00 | NUR ---
BLOOD SUGAR 195.
[2019-08-14] VITALS: BP 107/55; BP 130/60
--- NOTE | 2019-08-14 04:00 | NUR ---
RESTING IN BED WITH HOB SLIGHTLY ELEVATED. 02 INTACT. PT. AWAKE; VOICES NO C/O AT THIS TIME. CALL LIGHT WITHIN REACH.
[2019-08-14 06:10] LABS: BASO % 0.2 % (0.0-1.0); EOS % 0.3 % (1.0-4.0); LYMPH # 0.9 10*3/uL (1.3-4.4); LYMPH % 9.7 % (27.0-41.0); MEAN CORPUSCULAR HGB CONC 28.9 g/dl (33.0-37.0); MONO # 0.9 10*3/uL (0.1-1.0); MONO % 10.3 % (3.0-9.0); NEUT # 7.1 10*3/uL (2.3-7.9); NEUT % 78.9 % (47.0-73.0); PLATELET COUNT AUTOMATED 281 10*3/uL (130-400); RED BLOOD COUNT 3.11 10*6/uL (4.50-5.90); RED CELL DISTRI WIDTH 21.6 % (0-14.5)
--- NOTE | 2019-08-14 06:34 | NUR ---
DRESSING COMING LOOSE;NEW DRESSING APPLIED.
[2019-08-14 06:41] LABS: ALBUMIN 2.6 gm/dl (3.1-4.5); BUN 31 mg/dl (7-24); CHLORIDE 104 mmol/L (98-107); CREATININE 1.12 mg/dL (0.70-1.30); POTASSIUM 3.8 mmol/L (3.5-5.1); SGOT/AST 35 IU/L (3-35); SGPT/ALT 60 U/L (12-78); SODIUM 141 mmol/L (136-145); TOTAL PROTEIN 7.3 gm/dL (6.4-8.2)
[2019-08-14 06:51] LABS: ALKALINE PHOSPHATASE 115 U/L (45-117)
[2019-08-14 08:00] VITALS: BP 118/65
--- NOTE | 2019-08-14 08:57 | NUR ---
WEN FROM [employer] HERE TO SEE PATIENT AND INTERROGATE PACEMAKER. ATTEMPTED TO REACH REGARDING RESULTS. NO ANSWER. LEFT MESSAGE FOR RETURN PHONE CALL.
--- NOTE | 2019-08-14 09:38 | NUR ---
IN TO SEE PATIENT.
--- NOTE | 2019-08-14 09:59 | NUR ---
DRESSING CHANGED TO LEFT GROIN PER ORDER. IN TO SEE PATIENT'S WOUND. NO NEW ORDERS AT THIS TIME. WOUND CARE CONSULTED AND WILL SEE PATIENT TOMORROW AM.
[2019-08-14 12:00] VITALS: BP 124/53
--- NOTE | 2019-08-14 14:00 | NUR ---
PATIENT RESTING QUIETLY IN BED. 02 IN USE VIA 2LNC. POX 95% VIA 2LNC. PT STATES HE IS SOB WITH EXERTION. WILL CONTINUE TO MONITOR. CALL LIGHT WITHIN REACH.
[2019-08-14 16:00] VITALS: BP 116/51
--- NOTE | 2019-08-14 16:25 | NUR ---
NOTIFIED REGARDING PATIENT'S 14 BEAT RUN OF V-TACH. PATIENT RESTING QUIETLY IN BED. ASYMPTOMATIC. PULSE 96% VIA 2LNC. VSS. WILL CONTINUE TO MONITOR AND WILL NOTIFY . CALL LIGHT WITHIN REACH.
--- NOTE | 2019-08-14 16:33 | NUR ---
NOTIFIED REGARDING 14 BEAT RUN OF V-TACH. NEW ORDERS RECEIVED.
[2019-08-14 20:00] VITALS: BP 117/47
--- NOTE | 2019-08-14 20:15 | NUR ---
DR BARAHONA AWARE OF PATIENT'S HEART RATE AND BLOOD PRESSURE. STATES TO GIVE SCHEDULED LOPRESSOR
--- NOTE | 2019-08-14 23:00 | NUR ---
PATIENT IS AAOX3 RESTING IN BED WITH EASY AND REGULAR RESPERS ON 2L O2 VIA NC. ASSESSMENT IS COMPLETE WITH NO C/O OR S/S OF DISTRESS NOTED AT THIS TIME. BED IS LOW, LOCKED, AND CALL LIGHT IS WITHIN REACH. WILL CONTINUE TO MONITOR, SEE SHIFT ASSESSMENT.
[2019-08-15] VITALS: BP 107/55
--- NOTE | 2019-08-15 00:25 | NUR ---
PRN RESTORIL GIVEN AT THIS TIME FOR C/O INSOMNIA. CALL LIGHT IS WITHIN REACH, WILL MONITOR EFFECT.
--- NOTE | 2019-08-15 02:27 | NUR ---
CHART CHECK COMPLETE.
--- NOTE | 2019-08-15 03:00 | NUR ---
PATIENT MOVED SELF FROM BED TO RECLINING CHAIR. CALL LIGHT IS WITHIN REACH.
--- NOTE | 2019-08-15 05:06 | NUR ---
PATIENT AWAKENES EASILY FOR ADMINISTRATION OF 0600 MEDICATIONS. GOLDSMITH APPRENTICE LEADS FIXED, AND 1000ML CLEAR STRAW URINE EMPTIED FROM UROSTOMY PARKER BAG. CALL LIGHT IS WITHIN REACH.
[2019-08-15 06:24] LABS: BASO % 0.3 % (0.0-1.0); EOS # 0.1 10*3/uL (0.0-0.4); EOS % 0.7 % (1.0-4.0); HEMATOCRIT 29.7 % (42.0-52.0); LYMPH # 0.5 10*3/uL (1.3-4.4); LYMPH % 5.4 % (27.0-41.0); MEAN CELL VOLUME 91.1 fl (80.0-94.0); MEAN CORPUSCULAR HGB 25.8 pg (27.0-31.0); MEAN CORPUSCULAR HGB CONC 28.3 g/dl (33.0-37.0); MONO # 0.9 10*3/uL (0.1-1.0); MONO % 9.6 % (3.0-9.0); NEUT % 83.7 % (47.0-73.0); PLATELET COUNT AUTOMATED 292 10*3/uL (130-400); RED BLOOD COUNT 3.26 10*6/uL (4.50-5.90); RED CELL DISTRI WIDTH 21.6 % (0-14.5); WHITE BLOOD COUNT 9.5 10*3/uL (4.8-10.8)
[2019-08-15 06:30] LABS: BUN 26 mg/dl (7-24); CHLORIDE 104 mmol/L (98-107); CREATININE 1.02 mg/dL (0.70-1.30); POTASSIUM 4.5 mmol/L (3.5-5.1); SODIUM 140 mmol/L (136-145)
--- NOTE | 2019-08-15 06:36 | NUR ---
ALFREDO COOPER [id number] Please refer to the physician's history and physical for past medical history, comorbid conditions, and allergies. Diagnosis: ARRHYTHMIA Jerman Score: 21,LOW OR NO RISK WOUND DESCRIPTIONS: Wound Number: 1 Location of the wound: left groin Type of wound: surgical Thickness: Full Size: 0.8cm x 1.4cm x 0.9cm Tunneling: none Undermining: none Sinus Tract: none Presence of Exudate: Purulent Amount: Heavy Color: Red Odor: None Periwound Skin Appearance: Normal Wound edges: approximated Pain (associated with wound): none at time of assessment How does patient state this happened? pt stated this has been ongoing and had surgery with Dr. Corona in the past and is following in [place] Surface the patient is resting on: Isoflex restin in [facility] SKIN PREVENTION RECOMMENDATION: 1. Pressure redistribution support surface as appropriate 2. Elevate heels 3. Remove boots/TEDS every shift and reapply 4. Head of bed 30 degrees as tolerated 5. Assess nutrition and hydration 6. Manage moisture 7. Avoid the use of containment devices while in bed 8. Use absorptive products on surfaces limit layers of linens on bed 9. Turn and reposition every 1-2 hours in bed and every 1 hour in chair as tolerated 10. Weight shifts every 15 minutes while up in chair 11. Offloading with pillows or device to keep heels elevated off bed 12. Monitor skin at least every shift 13. Inspect under medical devices twice a day WOUND TREATMENT RECOMMENDATIONS: Full thickness guidelines: Cleans left groin with nss and apply sureprep around the wound lightly pack with maxorb and cover with dsd daily and prn for soiling Patient states he will continue to follow up in [place] upon discharge
--- NOTE | 2019-08-15 07:00 | NUR ---
ARRIVED ON SHIFT, REPORT RECEIVED FROM OFFGOING NURSE. INTRODUCED SELF TO PATIENT, BED IN LOW POSITION, WHEEL LOCKS ENGAGED, SR UP X 2, CALL LIGHT WITIN REACH, BED ALARM ON, NO NEEDS VOICED AT THIS TIME. WHITE BOARD UPDATED.
--- NOTE | 2019-08-15 08:16 | NUR ---
Shift chart check completed.
[2019-08-15 08:30] VITALS: BP 110/66
--- NOTE | 2019-08-15 08:40 | NUR ---
CALL PLACED TO DR. BLACK PER Karen GEE REQUEST TO INQUIRE WHEN HE WILL BE OUT TO SEE PATIENT, HE VERSED SOMETIME AROUND 4PM Karen MURO ADVISED.
--- NOTE | 2019-08-15 10:30 | NUR ---
Supervisor Paper Coating in to talk to patient. Patient states lives at home with girlfriend. There are no steps in the home. Physician: rolando messina Pharmacy: [facility] Home health services: none Patient's level of ADLs: INDEPENDENT Patient has working utilities: all working DME: wheeled walker, cane Follow-up physician's appointment after d/c: will be made by hospitalist nurse director upon discharge Does patient want to access PORTAL?: no Discharge plan discussed with patient, he lives at home with girlfriend, he uses a wheeled walker or cane for ambulation, he states he will return home when medically stable and denies any home needs. LEONEL ALVAREZ
--- NOTE | 2019-08-15 10:39 | NUR ---
Christel FIELDS notified of wound care recommendations
[2019-08-15 12:00] VITALS: BP 114/53
[2019-08-15] MEDS ORDERED: LASIX40 MG PO (14:42)
[2019-08-15] MEDS ORDERED: DILTIAZEM CD240 MG PO (14:42)
[2019-08-15] MEDS ORDERED: MUCUS RELIEF600 MG PO (14:42)
[2019-08-15] MEDS ORDERED: METOPROLOL TART50 M1 PO (14:42)
[2019-08-15] MEDS ORDERED: DOXYCYCLINE MO100 M1 PO (14:42)
--- NOTE | 2019-08-15 15:19 | NUR ---
Discharge instructions reviewed with patient, including changes in medications follow up appointments, labs and xrays, Patient receptive, verbalizes understanding. Follow up care arranged, written instructions provided to patient. Patient refused discharge photos, stated I'm already dressed, besides they too them in ER." IV right hand removed, telemetry removed. Follow-up care arranged. Written instructions given to patient/family. JEREMY RODRIGUEZ
== END 2019-08-15 15:19 | disposition home or self-care (01) | DRG 177 ==
LOC: ED 15:50 → EDHOLD 16:29 → 4E 16:29
PROVIDERS: Emergency Medicine; Student in an Organized Health Care Education/Training Program; ADMIT Internal Medicine
PROC: 4B02XSZ Measurement of Cardiac Pacemaker, External Approach (ICD-10-PCS; principal; 2019-08-15)
DX: J15.6 Pneumonia due to other Gram-negative bacteria (principal); E43 Unspecified severe protein-calorie malnutrition; I50.22 Chronic systolic (congestive) heart failure; J96.11 Chronic respiratory failure with hypoxia; E87.2 Acidosis; I49.8 Other specified cardiac arrhythmias; E66.01 Morbid (severe) obesity due to excess calories; D64.9 Anemia, unspecified; E55.9 Vitamin D deficiency, unspecified; I25.10 Atherosclerotic heart disease of native coronary artery without angina pectoris; R74.0 Nonspecific elevation of levels of transaminase and lactic acid dehydrogenase [LDH]; I48.0 Paroxysmal atrial fibrillation; K57.90 Diverticulosis of intestine, part unspecified, without perforation or abscess without bleeding; E11.9 Type 2 diabetes mellitus without complications; I11.0 Hypertensive heart disease with heart failure; Z79.01 Long term (current) use of anticoagulants; Z88.1 Allergy status to other antibiotic agents; Z88.8 Allergy status to other drugs, medicaments and biological substances; I25.2 Old myocardial infarction; Z95.5 Presence of coronary angioplasty implant and graft; Z95.1 Presence of aortocoronary bypass graft; Z95.0 Presence of cardiac pacemaker; Z90.79 Acquired absence of other genital organ(s); Z87.891 Personal history of nicotine dependence; Z83.3 Family history of diabetes mellitus; Z82.49 Family history of ischemic heart disease and other diseases of the circulatory system; Z85.51 Personal history of malignant neoplasm of bladder; Z79.899 Other long term (current) drug therapy; Z79.02 Long term (current) use of antithrombotics/antiplatelets; Z68.31 Body mass index [BMI] 31.0-31.9, adult; S71.132D Puncture wound without foreign body, left thigh, subsequent encounter; W34.00XD Accidental discharge from unspecified firearms or gun, subsequent encounter

== ENCOUNTER 2019-08-27 23:47 | Inpatient (IN) | payer OTHER ==
[~2019-08-27] VITALS: Ht 172.7 cm; Wt 89.0 kg
[~2019-08-27 23:47] MED LIST changes: +DILTIAZEM CD240 MG PO; +DOXYCYCLINE MO100 M1 PO; +MUCUS RELIEF600 MG PO; +PROBIOTIC1 EAC4 PO
[2019-08-27 23:54] VITALS: BP 109/53
[2019-08-28 00:39] LABS: BASO % 0.5 % (0.0-1.0); EOS # 0.1 10*3/uL (0.0-0.4); EOS % 0.6 % (1.0-4.0); HEMATOCRIT 32.6 % (42.0-52.0); LYMPH # 0.9 10*3/uL (1.3-4.4); LYMPH % 11.1 % (27.0-41.0); MEAN CELL VOLUME 88.8 fl (80.0-94.0); MEAN CORPUSCULAR HGB 25.6 pg (27.0-31.0); MEAN CORPUSCULAR HGB CONC 28.8 g/dl (33.0-37.0); MEAN PLATELET VOLUME 9.9 fl (9.6-12.3); MONO # 0.8 10*3/uL (0.1-1.0); MONO % 10.1 % (3.0-9.0); NEUT # 6.1 10*3/uL (2.3-7.9); NEUT % 77.3 % (47.0-73.0); PLATELET COUNT AUTOMATED 208 10*3/uL (130-400); RED BLOOD COUNT 3.67 10*6/uL (4.50-5.90); RED CELL DISTRI WIDTH 20.2 % (0-14.5); WHITE BLOOD COUNT 7.9 10*3/uL (4.8-10.8)
[2019-08-28 00:49] LABS: ACT PARTIAL THROMBO TIME 37.9 SECONDS (20.0-32.1); INTERNATIONAL NORM RATIO 1.7 (2.0-3.5)
[2019-08-28 00:56] LABS: ALBUMIN 2.7 gm/dl (3.1-4.5); ALKALINE PHOSPHATASE 148 U/L (45-117); BUN 30 mg/dl (7-24); CHLORIDE 99 mmol/L (98-107); CREATININE 1.19 mg/dL (0.70-1.30); POTASSIUM 4.2 mmol/L (3.5-5.1); SGOT/AST 30 IU/L (3-35); SGPT/ALT 42 U/L (12-78); SODIUM 138 mmol/L (136-145); TOTAL PROTEIN 7.7 gm/dL (6.4-8.2)
[2019-08-28 00:59] LABS: TROPONIN I < 0.015 ng/ml (<0.045)
--- NOTE | 2019-08-28 01:21 | NUR ---
PT RESTING IN BED WITH EYES CLOSED, NO DISTRESS NOTED, RN WILL CONTINUE TO MONITOR
[2019-08-28 02:07] VITALS: BP 130/82
[2019-08-28 04:00] VITALS: BP 119/58
--- NOTE | 2019-08-28 04:00 | NUR ---
A 79, admitted to 5E, under the services of JINNY Mahmood DO with a diagnosis of AC CHF. Chief complaint is SOB, EDEMA. Patient arrived via bed from ER. Monitor applied. Initial assessment completed. Vital signs taken and recorded. JINNY MAHMOOD DO notified of admission to the unit. Orders received. See assessment for past medical history, medications and allergies. Patient oriented to unit. Clothing/patient valuable form completed. GEORGIE MORALES
--- NOTE | 2019-08-28 05:02 | NUR ---
INFORMED THAT HOME MEDS ARE VERIFIED AND UPDAYED. INFORMED OF WOUND TO LEFT THIGH AND EXCORIATION TO LEFT ABD FOLD/UROSTOMY SITE. STATED HE WILL LOOK INTO IT.
[2019-08-28 06:22] LABS: BASO % 0.3 % (0.0-1.0); EOS # 0.1 10*3/uL (0.0-0.4); LYMPH # 0.9 10*3/uL (1.3-4.4); LYMPH % 11.7 % (27.0-41.0); MEAN CELL VOLUME 88.6 fl (80.0-94.0); MEAN CORPUSCULAR HGB 25.1 pg (27.0-31.0); MEAN CORPUSCULAR HGB CONC 28.3 g/dl (33.0-37.0); MEAN PLATELET VOLUME 10.5 fl (9.6-12.3); MONO # 0.8 10*3/uL (0.1-1.0); MONO % 10.6 % (3.0-9.0); NEUT # 5.5 10*3/uL (2.3-7.9); NEUT % 76.1 % (47.0-73.0); PLATELET COUNT AUTOMATED 221 10*3/uL (130-400); RED BLOOD COUNT 3.95 10*6/uL (4.50-5.90); RED CELL DISTRI WIDTH 20.1 % (0-14.5); WHITE BLOOD COUNT 7.3 10*3/uL (4.8-10.8)
[2019-08-28 06:29] LABS: BUN 27 mg/dl (7-24); CHLORIDE 100 mmol/L (98-107); CREATININE 1.09 mg/dL (0.70-1.30); POTASSIUM 4.1 mmol/L (3.5-5.1); SODIUM 137 mmol/L (136-145)
[2019-08-28 08:00] VITALS: BP 118/62
--- NOTE | 2019-08-28 08:30 | NUR ---
PATIENT SITTING UP IN BED. NO DISTRESS NOTED. 02 IN USE VIA 2LNC. POX 96% VIA 2LNC. PT STATES HE IS LESS SHORT OF BREATH. LUNGS DIMINISHED WITH PB RALES NOTED. UROSTOMY CONNECTED TO LEG BAG DRAINING STRAW-COLORED URINE. DRESSING D/I TO INNER LEFT GROIN. BLLE EDEMA. TUBI-CNA GNA APPLIED WITH NON-SKID SOCKS. CALL LIGHT WITHIN REACH. SEE SHIFT ASSESSMENT. VSS.
[2019-08-28 12:00] VITALS: BP 114/56
--- NOTE | 2019-08-28 14:00 | NUR ---
FAMILY BROUGHT IN UROSTOMY SUPPLIES. UROSTOMY CHANGED DUE TO LEAKAGE AROUND SITE. PATIENT TOLERATED WELL. DRESSING NOW D/I.
--- NOTE | 2019-08-28 14:15 | NUR ---
DRESSING CHANGED TO LEFT GROIN PER ORDER.
--- NOTE | 2019-08-28 15:16 | NUR ---
NOTIFIED REGARDING 5 BEAT RUN OF V-TACH. PT ASYMPTOMATIC. NO VOICED COMPLAINTS. WILL CONTINUE TO MONITOR.
[2019-08-28 16:00] VITALS: BP 110/50
--- NOTE | 2019-08-28 19:24 | NUR ---
24 HR chart check completed.
--- NOTE | 2019-08-28 19:30 | NUR ---
RESTING WITH HOB ELEVATED. RESPIRATIONS EASY. LUNGS DIMINISHED WITH PB RALES, R>L. PULSE OX 96% 2L. LOOSE COUGH NOTED, OCCASIONALLY PROD. C/O UROSTOMY LEAKING, SITE CHANGED PER PATIENT REQUEST. PATENT DRAINING CLEAR STRAW URINE. +1 BLE EDEMA, DECLINES TEDS/TUBI-BILLING AND ACCOUNTING STAFF ASSISTANT (BOTH PRESENT AT BEDSIDE). CALL LIGHT WITHIN REACH
[2019-08-28 20:00] VITALS: BP 115/40
--- NOTE | 2019-08-28 20:51 | NUR ---
REQUESTED AND RECEIVED RESTORIL PER PRN ORDER TO ASSIST WITH SLEEP. WILL MONITOR
--- NOTE | 2019-08-28 21:00 | NUR ---
UROSTOMY AGAIN CHANGED D/T LEAKAGE AT WAFER. PATIENT ADMITS TO NOT TAKING LASIX DAILY AT HOME FOR THIS REASON. STATES HE IS "SUPPOSE TO TAKE IT" DAILY BUT DOES NOT ALWAYS D/T FREQUENT URINATION CAUSING THE WAFER TO GET "WET AND LEAK". EXPLAINED TO PATIENT IMPORTANCE OF TAKING DAILY LASIX PRESCRIBED IN PREVENTING FLUID RETENTION AND CHF.
--- NOTE | 2019-08-28 21:45 | NUR ---
EARLIER RESTORIL BECOMING EFFECT, RESTING WITH EYES CLOSED. RESPIRATIONS EASY. O2 IN USE. CALL LIGHT WITHIN REACH
[2019-08-29] VITALS: BP 123/50
--- NOTE | 2019-08-29 | NUR ---
SLEEPING. NO DISTRESS NOTED. RESPIRATIONS EASY. VSS. CALL LIGHT WITHIN REACH
[2019-08-29] MEDS ORDERED: DALIRESP500 MC1 PO (02:14)
--- NOTE | 2019-08-29 06:00 | NUR ---
SLEPT THROUGHOUT NIGHT WITH NO DISTRESS NOTED. RESPIRATIONS EASY. O2 IN USE. CALL LIGHT WITHIN REACH. NO VOICED COMPLAINTS THIS SHIFT
[2019-08-29 07:20] LABS: BUN 29 mg/dl (7-24); CHLORIDE 99 mmol/L (98-107); CREATININE 0.96 mg/dL (0.70-1.30); POTASSIUM 3.7 mmol/L (3.5-5.1); SODIUM 138 mmol/L (136-145)
--- NOTE | 2019-08-29 07:39 | NUR ---
KENNETHALFREDO Farley [id number] Please refer to the physician's history and physical for past medical history, comorbid conditions, and allergies. Diagnosis: ACUTE CHF (CONGESTIVE HEART FAILURE) Jerman Score: 15,AT RISK WOUND DESCRIPTIONS: This nurse as well as Chani Maciel RN assessed patient Wound Number: 1 Location of the wound: left groin/ abdominal fold Type of wound: masd Thickness: partial Tunneling: none Undermining: none Sinus Tract: none Presense of exduate: none Amount: none Color: pink and blanchable Odor: musty Periwound Skin Appearance: Normal Wound edges: approximated Pain (associated with wound): none at time of assessment How does patient state this happened? pt stated this has been ongoing and had surgery with Dr. Corona in the past and is following in [place] Wound Number: 2 Location of the wound: left thigh Type of wound: surgical Thickness: Full Size: 0.8cm x 0.8cm x 0.5cm Tunneling: none Undermining: none Sinus Tract: none Presence of Exudate: Purulent Amount: Heavy Color: Red Odor: None Periwound Skin Appearance: Normal Wound edges: approximated Pain (associated with wound): none at time of assessment How does patient state this happened? pt stated this has been ongoing and had surgery with Dr. Corona in the past and is going to follow up in [place] September 28, 2019. Surface the patient is resting on: Isoflex SKIN PREVENTION RECOMMENDATION: 1. Pressure redistribution support surface as appropriate 2. Elevate heels 3. Remove boots/TEDS every shift and reapply 4. Head of bed 30 degrees as tolerated 5. Assess nutrition and hydration 6. Manage moisture 7. Avoid the use of containment devices while in bed 8. Use absorptive products on surfaces limit layers of linens on bed 9. Turn and reposition every 1-2 hours in bed and every 1 hour in chair as tolerated 10. Weight shifts every 15 minutes while up in chair 11. Offloading with pillows or device to keep heels elevated off bed 12. Monitor skin at least every shift 13. Inspect under medical devices twice a day WOUND TREATMENT RECOMMENDATIONS: Continue current dressing change to left thigh Cleanse left groin/ abdominal fold area with soap and water pat area dry then apply nystatin powder every 8 hours and avoid wound during dressing application.
--- NOTE | 2019-08-29 07:56 | NUR ---
Nursing screen received and chart reviewed. Patient admitted with SOB and LE edema. Patient was home with girlfriend prior to admission. If patient has a decline in ADLs then refer to OT. Thank you. Louise Kurtz OTR/Azeem
[2019-08-29 08:00] VITALS: BP 110/52
--- NOTE | 2019-08-29 08:15 | NUR ---
Patient resting in bed with no c/o discomfort. Respirations easy and regular, on O2. No leaking noted to urostomy site. DSD intact. Vital signs stable. No overt distress. Call light in reach will monitor CHEIKH MACARIO
--- NOTE | 2019-08-29 08:19 | NUR ---
PHYSICAL THERAPY Nursing screen received and chart reviewed. Recommend skilled PT evaluation if functional mobility declines.Thank you. Layne Banda,PT,DPT
--- NOTE | 2019-08-29 09:46 | NUR ---
Dr. Napoles notified of wound care recommendations.
--- NOTE | 2019-08-29 11:10 | NUR ---
UROSTOMY SITE LEAKING. APPLIANCE CHANGED. PT TOLERATED WELL. WILL MONITOR
[2019-08-29 12:00] VITALS: BP 110/63
--- NOTE | 2019-08-29 12:27 | NUR ---
Pulmonologist in to talk to patient. Patient states lives at HOME with GIRLFRIEND. There are NO steps in the home. Physician: Ann COOPER [facility]acy[facility] Home health services: COUNTS INCLUDE 234 BEDS AT THE [facility] Patient's level of ADLs: INDEPENDENT Patient has working utilities: YES DME: OXYGEN, WALKER, CANE. O2 COMPANY [employer] Follow-up physician's appointment after d/c: WILL BE MADE BY HOSPITALIST NURSE DIRECTOR ON DISCHARGE Does patient want to access PORTAL?: NO Discharge plan PT LIVES AT HOME WITH GIRLFRIEND WHO TAKES CARE OF HIM. PT HAS COUNTS INCLUDE 234 BEDS AT THE [facility] ALSO. DENIES ANY OTHER NEEDS WHEN DISCHARGED. TALKED TO PT ABOUT SKILLED CARE BUT HE REFUSES, STATES NO I AM GOING HOME. PLAN IS FOR PT TO RETURN HOME WITH COUNTS INCLUDE 234 BEDS AT THE [facility] SERVICES RESUMED WHEN MEDICALLY STABLE. WILL CONTINUE TO FOLLOW. STATES HE WILL HAVE A RIDE HOME.. SHENG ANDREW
[2019-08-29 16:00] VITALS: BP 124/50
--- NOTE | 2019-08-29 16:30 | NUR ---
UROSTOMY LEAKING, APPLIANCE CHANGED. PT TOLERATED WELL. DRSG TO LEFT THIGH CHANGED.
--- NOTE | 2019-08-29 16:34 | NUR ---
PT REQUESTED AND WAS MEDICATED WITH TYLENOL FOR C/O GENERALIZED PAIN. CALL LIGHT IN REACH. WILL MONITOR
--- NOTE | 2019-08-29 16:55 | NUR ---
DR MCMILLAN ON UNIT, NOTIFIED HER THAT PT REFUSED NYSTATIN POWDER FOR LEFT GROIN. ASKED FOR CALAZIME CREAM. SHE STATES SHE WILL ORDER SOME.
--- NOTE | 2019-08-29 19:33 | NUR ---
24 HR chart check completed.
[2019-08-29 20:00] VITALS: BP 109/51
--- NOTE | 2019-08-29 20:00 | NUR ---
RESTING IN BED WATCHING TV WITH NO DISTRESS NOTED. RESPIRATIONS EASY. LUNGS DIMINISHED WITH PB RALES. PULSE OX 93% 2L. PROD COUGH. UROSTOMY PATENT AND INTACT LEFT ABD, DRAINING CLEAR STRAW URINE. TRACE BLE EDEMA, CONTINUES TO DECLINES TEDS/SCDS. CALL LIGHT WITHIN REACH. NO VOICED COMPLAINTS
--- NOTE | 2019-08-29 21:00 | NUR ---
PATIENT REPEATEDLY REQUESTING ICE CHIPS. EXPLAINED FLUID RESTRICTION
--- NOTE | 2019-08-29 21:01 | NUR ---
REQUESTED AND RECEIVED RESTORIL PER PRN ORDER TO ASSIST WITH SLEEP. WILL MONITOR
--- NOTE | 2019-08-29 22:00 | NUR ---
REFUSED 2200 NYSTATIN
--- NOTE | 2019-08-29 22:00 | NUR ---
REMAINS AWAKE BUT DROWSY. RESPIRATIONS EASY. O2 IN USE. CALL LIGHT WITHIN REACH
--- NOTE | 2019-08-29 23:00 | NUR ---
CONTINUES TO REQUEST ICE CHIPS DESPITE EDUCATION
[2019-08-30] VITALS: BP 115/59; BP 115/95
--- NOTE | 2019-08-30 | NUR ---
SLEEPING. NO DISTRESS NOTED. RESPIRATIONS EASY. VSS. CALL LIGHT WITHIN REACH
--- NOTE | 2019-08-30 03:00 | NUR ---
SLEEPING. O2 IN USE
--- NOTE | 2019-08-30 06:00 | NUR ---
PROVIDED WITH 1/2 CUP ICE CHIPS AT PATIENT REQUEST. REMINDED OF FLUIDS RESTRICTION
--- NOTE | 2019-08-30 06:00 | NUR ---
SLEPT THROUGHOUT NIGHT WITH NO DISTRESS NOTED. RESPIRATIONS EASY. O2 IN USE. CALL LIGHT WITHIN REACH. NO VOICED COMPLAINTS THIS SHIFT
--- NOTE | 2019-08-30 07:45 | NUR ---
PT RESTING IN BED. RESP-EASY AND REGULAR. OXYGEN IN USE. NO C/O AT THIS TIME. CALL LIGHT IN REACH. SEE SHIFT ASSESSMENT.
[2019-08-30 08:00] VITALS: BP 122/56
--- NOTE | 2019-08-30 09:40 | NUR ---
PT ASSISTED UP TO BEDSIDE RECLINER. OXYGEN IN USE. CALL LIGHT IN REACH.
[2019-08-30 12:00] VITALS: BP 109/46
--- NOTE | 2019-08-30 12:30 | NUR ---
PT RESTING IN RECLINER CHAIR. OXYGEN IN USE. NO C/O AT THIS TIME. CALL LIGHT IN REACH.
--- NOTE | 2019-08-30 14:00 | NUR ---
SITTING UP IN RECLINER CHAIR. RESP-EASY AND REGULAR. NO C/O AT THIS TIME. CALL LIGHT IN REACH.
[2019-08-30 16:00] VITALS: BP 105/48
--- NOTE | 2019-08-30 16:00 | NUR ---
PT SITTING UP IN CHAIR. RESP-EASY AND REGULAR. NO C/O AT THIS TIME. CALL LIGHT IN REACH.
--- NOTE | 2019-08-30 17:30 | NUR ---
PT ASSISTED TO BED. PT HAD UROSTOMY OFF. CLEANED UP PT AND REPLACED BAG. DRESSING TO LEFT LEG CHANGED. OXYGEN IN USE. CALL LIGHT IN REACH. BSG-158, SEE EMAR. CALL LIGHT IN REACH.
--- NOTE | 2019-08-30 18:35 | NUR ---
PT HAD LIGHT ON. CHANGED UROSTOMY BAG HAD CAME OFF. DRESSING TO LEFT LEG CHANGED AGAIN. PT CLEANED UP AND CREAM APPLIED TO GROIN. CALL LIGHT IN REACH. BED ALARM ON.
--- NOTE | 2019-08-30 19:50 | NUR ---
PT LYING IN BED. SPOKE WITH PT REGARDING CAMERA IN ROOM TO KEEP AN EYE ON HIM. HE AGREED.
[2019-08-30 20:00] VITALS: BP 118/48
--- NOTE | 2019-08-30 20:00 | NUR ---
PATIENT'S UROSTOMY WAS LEAKING. PATIENT INSISTED ON USING HIS OWN UROSTOMY SUPPLIES. I HELPED HIM PUT IT ON. UROSTOMY INTACT. DRAINING STRAW COLORED URINE. LEFT GROIN DRESSING CHANGED. CALL LIGHT WITHIN REACH. NO FURTHER COMPLAINTS. WILL CONTINUE TO MONITOR.
--- NOTE | 2019-08-30 23:46 | NUR ---
PATIENT'S UROSTOMY STILL INTACT AND DRAINING WELL. DRESSING TO LEFT GROIN INTACT. NO COMPLAINTS AT THIS TIME. WILL CONTINUE TO MONITOR.
--- NOTE | 2019-08-30 23:55 | NUR ---
24 HR chart check completed.
[2019-08-31] VITALS (7 sets, daily range): BP systolic 103–126; BP diastolic 42–64
--- NOTE | 2019-08-31 06:15 | NUR ---
PATIENT'S UROSTOMY DRAINING WELL. STILL INTACT, NO LEAKING PRESENT. NO COMPLAINTS VOICED. RESPIRATIONS EASY, REGULAR, NO DISTRESS. CALL LIGHT WITHIN REACH. WILL CONTINUE TO MONITOR.
[2019-08-31 07:50] LABS: BASO % 0.3 % (0.0-1.0); EOS # 0.1 10*3/uL (0.0-0.4); EOS % 0.7 % (1.0-4.0); HEMATOCRIT 33.7 % (42.0-52.0); LYMPH # 0.6 10*3/uL (1.3-4.4); MEAN CELL VOLUME 88.5 fl (80.0-94.0); MEAN CORPUSCULAR HGB 25.2 pg (27.0-31.0); MEAN CORPUSCULAR HGB CONC 28.5 g/dl (33.0-37.0); MEAN PLATELET VOLUME 10.1 fl (9.6-12.3); MONO # 0.9 10*3/uL (0.1-1.0); MONO % 8.6 % (3.0-9.0); NEUT # 8.3 10*3/uL (2.3-7.9); PLATELET COUNT AUTOMATED 224 10*3/uL (130-400); RED BLOOD COUNT 3.81 10*6/uL (4.50-5.90); WHITE BLOOD COUNT 9.8 10*3/uL (4.8-10.8)
[2019-08-31 08:14] LABS: BUN 37 mg/dl (7-24); CHLORIDE 97 mmol/L (98-107); CREATININE 1.01 mg/dL (0.70-1.30); POTASSIUM 3.5 mmol/L (3.5-5.1); SODIUM 139 mmol/L (136-145)
--- NOTE | 2019-08-31 09:30 | NUR ---
PT RESTING IN BED. REPOSITIONED FOR COMFORT. TOLERATED ROUTINE MED WITH NO PROBLEM. OXYGEN IN USE. CALL LIGHT IN REACH. BED ALARM ON. SEE SHIFT ASSESSMENT.
--- NOTE | 2019-08-31 10:20 | NUR ---
Occupational Therapy evaluation completed on five with full evaluation to follow. Recommend occupational therapy per plan of care and SNF upon discharge. If refused, home with SN, OT, and PT with 03/11 supervision assist. Thank you for this referral. Fidelina Ernandez OTR/L
--- NOTE | 2019-08-31 11:53 | NUR ---
Physical Therapy evaluation completed on the fifth floor with full evaluation to follow. Recommend physical therapy per plan of care and home w girlfriend w 24 hr care and f/u HH services. Girlfriend lives w him and per pt "helps him with everything" and he will not go to any facility but is agreeable to HH services. Thank you for this referral. Shira Griffiths PT
--- NOTE | 2019-08-31 12:00 | NUR ---
SITTING UP IN RECLINER CHAIR. RESP-EASY AND REGULAR. OXYGEN IN USE. NO C/O AT THIS TIME. CALL LIGHT IN REACH.
--- NOTE | 2019-08-31 12:10 | NUR ---
PT CONTINUES TO STATE HE WILL GO HOME WITH [facility] ON DISCHARGE. RESUME HOME HEALTH ORDER FAXED TO [facility]. WILL CONTINUE TO FOLLOW.
--- NOTE | 2019-08-31 15:00 | NUR ---
PT SITTING UP IN RECLINER CHAIR. BSG-193, SEE EMAR. TOLERATED ROUTINE MED WITH NO PROBLEM. NO C/O AT THIS TIME. OXYGEN IN USE. CALL LIGHT IN REACH. BODY ALARM ON.
--- NOTE | 2019-08-31 23:18 | NUR ---
PATIENT RESTING IN BED. LEFT GROIN WOUND DRESSING CHANGED. UROSTOMY INTACT AND DRAINING. CALL LIGHT WITHIN REACH. NO COMPLAINTS AT THIS TIME. WILL CONTINUE TO MONITOR.
--- NOTE | 2019-08-31 23:30 | NUR ---
24 HR chart check completed.
[2019-09-01] VITALS: BP 115/60
--- NOTE | 2019-09-01 02:26 | NUR ---
Patient resting quietly with no c/o discomfort. Respirations easy and regular. No overt distress. CURT AREVALO
[2019-09-01 05:16] VITALS: BP 115/43
[2019-09-01 08:00] VITALS: BP 117/59
--- NOTE | 2019-09-01 09:30 | NUR ---
PT RESTING IN BED. REPOSITIONED IN BED, ENCOURGAED TO TURN. TOLERATED ROUTINE MED WITH NO PROBLEM. RESP-EASY AND REGULAR. OXYGEN IN USE. NO C/O AT THIS TIME. CALL LIGHT IN REACH. DRESSING TO LEFT LEG CHANGED WITH YELLOW DRAINAGE NOTED. SITE CLEANED NEW DRY DRESSING APPLIED. SEE SHIFT ASSESSMENT.
[2019-09-01 12:00] VITALS: BP 110/50
--- NOTE | 2019-09-01 12:26 | NUR ---
PT CONTINUES TO STATE HE WILL RETURN HOME WITH [facility] ON DISCHARGE WITH NO OTHER NEEDS. WILL CONTINUE TO FOLLOW.
--- NOTE | 2019-09-01 12:55 | NUR ---
PHYSICAL THERAPY Patient seen this pm 1;1 for therapy visit and was sitting up in bedside chair upon therapist arrival. Patient identified by name / and presented with continuos O2-2L via NC. Patient reports no c/o's pain at this time and transfers sit to stand from low chair surface SBA x 1. Patient ambulates to bathroom, 20' x 2, use of wh walker, SBA, demonstrating slow, steady leticia. Patient also experienced a nose bleed upon return to bedside chair as he stated he felt the nasal canula was rubbing in his nose. Theerapist notified Nursing as his Nurse arrived within a few minutes to assess patient. Patient remained in chair with call light, tray table and telephone. Will continue per POC as tolerated, total treatment time 16 minutes. Chi Chavez, COMMISSION BR[employer]ER
--- NOTE | 2019-09-01 13:00 | NUR ---
OT NOTE Pt was seen this P.M. 1:1 for 17 minute OT session. Upon arrival pt was sitting upright in the recliner. Pt identified by name and and had no complaints at this time. Pt presented to therapy with continuous 2.5L-O2 via NC which he remained on throughout the entire session. Sit to stand completed from chair level with SBA and use of w/w for UE support. Functional mobility was then completed to the bathroom with SBA and use of w/w. There he transferred on/off standard commode with SBA and use of grab bar for UE support. He then stood sink side while washing his hands with SBA. While standing sink side pt's nose began to bleed, returned to the recliner and nurse notified. No other tasks completed at this time due to continued nose bleed and being under nursing care. Pt was left sitting upright in the recliner with call light in hand, tray table in place, and phone in reach. Continue with POC as able. AVNI Romero/Azeem
--- NOTE | 2019-09-01 14:56 | NUR ---
Discharge instructions reviewed with patient/family. Patient receptive and verbalizes understanding. Follow-up care arranged. Written instructions given to patient/family. HEPLOCK REMOVED 2X2 APPLIED. DRESSING TO LEFT THIGH CHANGED. PICTURES TAKEN. ESCORTED VIA WHEELCHAIR FOR DISCHARGE. KARELY VARGAS R
--- NOTE | 2019-09-02 07:50 | NUR ---
OCCUPATIONAL THERAPY CO-SIGN I approve of the Occupational Therapy notes written above. SUKHJINDER NEGRON, OTR/L
--- NOTE | 2019-09-02 07:59 | NUR ---
PHYSICAL THERAPY CO-SIGN I approve of the Physical Therapy notes written above. Shira Griffiths PT
== END 2019-09-01 15:03 | disposition home health service (06) | DRG 291 ==
LOC: ED 23:47 → 5E 08-28 03:28 → EDHOLD 08-28 03:28 → 5E 08-28 03:41
PROVIDERS: Emergency Medicine Emergency Medical Services; Family Medicine; Internal Medicine; Student in an Organized Health Care Education/Training Program; ADMIT Internal Medicine
DX: I50.23 Acute on chronic systolic (congestive) heart failure (principal); E43 Unspecified severe protein-calorie malnutrition; J96.11 Chronic respiratory failure with hypoxia; R73.9 Hyperglycemia, unspecified; E83.41 Hypermagnesemia; D64.9 Anemia, unspecified; I48.0 Paroxysmal atrial fibrillation; I25.10 Atherosclerotic heart disease of native coronary artery without angina pectoris; K57.90 Diverticulosis of intestine, part unspecified, without perforation or abscess without bleeding; R74.8 Abnormal levels of other serum enzymes; Z88.1 Allergy status to other antibiotic agents; Z88.8 Allergy status to other drugs, medicaments and biological substances; Z79.899 Other long term (current) drug therapy; Z79.84 Long term (current) use of oral hypoglycemic drugs; Z85.51 Personal history of malignant neoplasm of bladder; I25.2 Old myocardial infarction; Z85.46 Personal history of malignant neoplasm of prostate; Z95.5 Presence of coronary angioplasty implant and graft; Z98.49 Cataract extraction status, unspecified eye; Z95.1 Presence of aortocoronary bypass graft; Z95.0 Presence of cardiac pacemaker; Z87.891 Personal history of nicotine dependence; Z82.49 Family history of ischemic heart disease and other diseases of the circulatory system; Z83.3 Family history of diabetes mellitus

== ENCOUNTER 2020-02-20 15:06 | Inpatient (IN) | payer OTHER ==
[~2020-02-20] VITALS: Ht 177.8 cm; Wt 77.6 kg
[2020-02-20] VITALS (11 sets, daily range): BP systolic 113–131; BP diastolic 51–67
[~2020-02-20 15:06] MED LIST changes: +DALIRESP500 MC1 PO
[2020-02-20 16:28] LABS: BASO % 0.3 % (0.0-1.0); EOS # 0.2 10*3/uL (0.0-0.4); EOS % 3.1 % (1.0-4.0); HEMATOCRIT 39.9 % (42.0-52.0); LYMPH # 0.7 10*3/uL (1.3-4.4); LYMPH % 8.3 % (27.0-41.0); MEAN CELL VOLUME 89.7 fl (80.0-94.0); MEAN CORPUSCULAR HGB 26.7 pg (27.0-31.0); MEAN CORPUSCULAR HGB CONC 29.8 g/dl (33.0-37.0); MEAN PLATELET VOLUME 9.8 fl (9.6-12.3); MONO # 0.8 10*3/uL (0.1-1.0); MONO % 9.6 % (3.0-9.0); NEUT # 6.1 10*3/uL (2.3-7.9); NEUT % 78.2 % (47.0-73.0); PLATELET COUNT AUTOMATED 204 10*3/uL (130-400); RED BLOOD COUNT 4.45 10*6/uL (4.50-5.90); RED CELL DISTRI WIDTH 15.7 % (0-14.5); WHITE BLOOD COUNT 7.8 10*3/uL (4.8-10.8)
[2020-02-20 16:45] LABS: ALBUMIN 2.6 gm/dl (3.1-4.5); ALKALINE PHOSPHATASE 111 U/L (45-117); BUN 18 mg/dl (7-24); CHLORIDE 97 mmol/L (98-107); CREATININE 0.77 mg/dL (0.70-1.30); POTASSIUM 4.4 mmol/L (3.5-5.1); SGOT/AST 20 IU/L (3-35); SGPT/ALT 29 U/L (12-78); SODIUM 138 mmol/L (136-145); TOTAL PROTEIN 8.2 gm/dL (6.4-8.2)
[2020-02-20 16:47] LABS: ARTERIAL BLOOD GAS PH 7.236 (7.35-7.45)
[2020-02-20 18:27] LABS: BILIRUBIN Negative (Negative); BLOOD Negative (Negative); GLUCOSE Negative (Negative); KETONE Negative (Negative); LEUKO ESTERASE 2+ (Negative); NITRITE Positive (Negative); UROBILINOGEN 0.2 E.U./dl (0.0-1.0)
[2020-02-20 18:33] LABS: CLARITY Clear (Clear); COLOR Yellow (Yellow)
--- NOTE | 2020-02-20 18:45 | NUR ---
changed patient's leaking urostomy bag with supplies provided by patient from his home health nurse. patient tolerated well. no apparent distress. patient states he is fine when asked. difficult for patient to talk with bipap on.
[2020-02-20 18:56] LABS: BACTERIA 2+; EPITHELIAL CELLS 0-2; RBC 0-2 rbc/hpf (0-2)
--- NOTE | 2020-02-20 19:58 | NUR ---
Pt still resting on BiPap 20/10 and FiO2 40%. SPo2 95%, HR 74 Alarm son and audible. 2 hour ABG just sent
[2020-02-20 20:06] LABS: ABG BASE EXCESS 11.4 mmol/L (-2.0-2.0); ARTERIAL BLOOD GAS PH 7.259 (7.35-7.45)
--- NOTE | 2020-02-20 20:24 | NUR ---
PT. RESTING IN BED ON BIPAP. 20/10, FIO2-40%,SPO2-95%, HR-71. WILL CONTINUE TO MONITOR.
[2020-02-20] MEDS ORDERED: LANOXIN62.5 MCG PO (22:30)
[2020-02-20] MEDS ORDERED: Zaroxolyn,Diul2.5 MG PO (22:31)
[2020-02-20] MEDS ORDERED: TESSALON PERLE100 MG PO (22:31)
[2020-02-20] MEDS ORDERED: ALDACTONE25 M1 PO (22:32)
[2020-02-20] MEDS ORDERED: SYMB160 INH (22:33)
--- NOTE | 2020-02-20 23:00 | NUR ---
BRANDON EDUARDO D/T LOW BP
[2020-02-21] VITALS (13 sets, daily range): BP systolic 95–120; BP diastolic 41–58
--- NOTE | 2020-02-21 01:00 | NUR ---
PT. GETTING INTUBATED. JAYCE HELD PER DOC REQUEST.
--- NOTE | 2020-02-21 01:07 | NUR ---
PT INTUBATED BY DR MARR. #8 TUBE 25@TEETH. PLACED ON VENT 14/500/50/5 ETCO2 WAS 73. TRENDING DOWN
--- NOTE | 2020-02-21 01:07 | NUR ---
RESPIRATORY INTUBATING PT.
--- NOTE | 2020-02-21 01:20 | NUR ---
VENT SETTINGS- PEEP-5.0,FIO2-50%,TV-500, SPO2-99%.
--- NOTE | 2020-02-21 03:42 | NUR ---
NURSING SUPERVISIOR NOTIFIED, IN NEED OF MIDAZOLAM HYDROCHLORIDE.
[2020-02-21 04:43] LABS: BASO % 0.1 % (0.0-1.0); EOS # 0.1 10*3/uL (0.0-0.4); EOS % 1.7 % (1.0-4.0); HEMATOCRIT 37.1 % (42.0-52.0); LYMPH # 0.7 10*3/uL (1.3-4.4); LYMPH % 8.5 % (27.0-41.0); MEAN CELL VOLUME 89.6 fl (80.0-94.0); MEAN CORPUSCULAR HGB 26.8 pg (27.0-31.0); MEAN CORPUSCULAR HGB CONC 29.9 g/dl (33.0-37.0); MEAN PLATELET VOLUME 9.7 fl (9.6-12.3); MONO # 0.7 10*3/uL (0.1-1.0); MONO % 8.4 % (3.0-9.0); NEUT # 6.3 10*3/uL (2.3-7.9); PLATELET COUNT AUTOMATED 194 10*3/uL (130-400); RED BLOOD COUNT 4.14 10*6/uL (4.50-5.90); RED CELL DISTRI WIDTH 15.5 % (0-14.5); WHITE BLOOD COUNT 7.7 10*3/uL (4.8-10.8)
--- NOTE | 2020-02-21 04:50 | NUR ---
PT ASSESSED AND VENT CHECKED. SETTINGS REMAIN THE SAME ETCO2 IS AT 48. PT APPEARS COMFORTBALE.
[2020-02-21 04:53] LABS: INTERNATIONAL NORM RATIO 1.1 (2.0-3.5)
[2020-02-21 05:00] LABS: ALBUMIN 2.4 gm/dl (3.1-4.5); ALKALINE PHOSPHATASE 101 U/L (45-117); BUN 17 mg/dl (7-24); CHLORIDE 94 mmol/L (98-107); CHOLESTEROL 149 mg/dL (<200); CREATININE 0.79 mg/dL (0.70-1.30); HDL CHOLESTEROL 40 mg/dl (40-60); LDL CHOLESTEROL 77 mg/dL (9-159); POTASSIUM 4.3 mmol/L (3.5-5.1); SGOT/AST 21 IU/L (3-35); SGPT/ALT 25 U/L (12-78); SODIUM 141 mmol/L (136-145); TOTAL PROTEIN 8.3 gm/dL (6.4-8.2); TRIGLYCERIDES 158 mg/dl (<150); VLDL CHOLESTEROL 32 mg/dL (6-40)
--- NOTE | 2020-02-21 05:41 | NUR ---
PT. RESTING COMFORTABLY IN BED. WILL CONTINUE TO MONITOR.
--- NOTE | 2020-02-21 06:46 | NUR ---
PT. RESTING COMFORTABLY IN BED. WILL CONTINUE TO MONITOR. NO DISTRESS NOTED.
--- NOTE | 2020-02-21 07:45 | NUR ---
DR. LEYVA HERE TO SEE PATIENT
[2020-02-21 08:36] LABS: ARTERIAL BLOOD GAS PH 7.5 (7.35-7.45)
--- NOTE | 2020-02-21 09:07 | NUR ---
O2 WAS INCREASED TO 40%, PULSE OX WAS 91%, RN NOTIFIED.
--- NOTE | 2020-02-21 11:44 | NUR ---
DR. BUSTAMANTE NOTIFIED OF CONSULT.
--- NOTE | 2020-02-21 12:20 | NUR ---
IV INFILTRATED IN LEFT AND RIGHT ARM. 2 NEW IV SITES PLACED IN LEFT ARM
[2020-02-21] MEDS ORDERED: PAXIL10 MG PO (12:28)
[2020-02-21] MEDS ORDERED: METOPROLOL SUC100 M1 PO (12:29)
[2020-02-21] MEDS ORDERED: NEURONTIN100 MG PO (12:30)
--- NOTE | 2020-02-21 12:32 | NUR ---
MEDICATION RECONCILLIATION COMPLETED AT THIS TIME WITH PHARMACIST AT [facility] IN [facility]
--- NOTE | 2020-02-21 12:49 | NUR ---
Per Dr. Galeana, hold echo till COVID result is back.
--- NOTE | 2020-02-21 13:00 | NUR ---
TRANSFERRED TO ROOM 420 VIA CART. REPORT GIVEN TO DENNIS
--- NOTE | 2020-02-21 13:15 | NUR ---
A 79 YEAR OLD MALE PATIENT, admitted to , under the services of LANRE Davila DO with a diagnosis of ACUTE ON CHRONIC RESPIRATORY FAILURE,ACUTE METABLOIC ENCEPHALOPATHY, ACUTE ON CHRONIC DIASTOLIC CHF. Chief complaint is DISORIENTATION AT HOME. Patient arrived via CART WITH RN AND RESPIRATORY from ER. Monitor applied. Initial assessment completed. Vital signs taken and recorded. See assessment for past medical history, medications and allergies. Patient and/or family oriented to unit. [facility] 420-1 visitation policy reviewed. Clothing/patient valuable form completed. DENNIS SANTIAGO
--- NOTE | 2020-02-21 13:30 | NUR ---
OG TUBE PLACED TO PROVIDE ACCESS TO ADMINISTER PO MEDICATIONS. VERIFIED WITH AIR BOLUS.
--- NOTE | 2020-02-21 13:43 | NUR ---
PATIENT MEDICATED WITH TYLENOL FOR ELEVATED TEMPERATURE. PATIENT TEMPERTURE IS 101.5 WITH THE CONTINUOUS RECTAL PROBE THAT WAS PLACED
--- NOTE | 2020-02-21 13:46 | NUR ---
Patient is intubated and in COVID isolation precautions. CM will continue to follow for any discharge planning.
--- NOTE | 2020-02-21 13:50 | NUR ---
SPUTUM OBTAINED AND SENT AT THIS TIME
--- NOTE | 2020-02-21 15:00 | NUR ---
WOUND TO THE LEFT GROIN REDRESSED ACCORDING TO BLU RASMUSSEN
--- NOTE | 2020-02-21 15:34 | NUR ---
TUBE FEED STARTED AT THIS TIME. TOLERATING WELL.
[2020-02-21 17:27] LABS: BILIRUBIN Negative (Negative); BLOOD Negative (Negative); CLARITY Clear (Clear); COLOR Yellow (Yellow); GLUCOSE Negative (Negative); KETONE Trace (Negative); LEUKO ESTERASE 2+ (Negative); NITRITE Positive (Negative); SPECIFIC GRAVITY 1.015 (1.001-1.030)
[2020-02-21 17:56] LABS: BACTERIA 1+; WBC 16-20 wbc/hpf (0-5)
[2020-02-21 20:12] LABS: ABG BASE EXCESS 14.9 mmol/L (-2.0-2.0); ARTERIAL BLOOD GAS PH 7.501 (7.35-7.45)
--- NOTE | 2020-02-21 20:38 | NUR ---
1950 RESTING IN BED WITH HOB ELEVATED. SIDE RAILS UP X'S 2. NPO. ORAL CARE DONE. OGT INTACT WITH TF MAINTAINED. NO RESIDUAL NOTED. SUCTIONED ORALLY AND VIA ET. IV SITES INTACT X'S 2 LA. DIPRIVAN GTT MAINTAINED AT 40MICS. Q2H BP'S CONT. WRIST RESTRAINTS INTACT BILATERALLY. CIRCULATION ADEQUATE. UROSTOMY INTACT AND PATENT AND TO PARKER BAG. DIURESING FROM EARLIER IV LASIX. DRSG D/I TO WOUND LEFT GROIN. ISOLATION CONT. ABG'S DRAWN PER RT PER ORDER.
--- NOTE | 2020-02-21 23:11 | NUR ---
2311 VERSED 5MG IV FOR RESTLESSNESS AND IMMEDIATELY EFFECTIVE.
[2020-02-22] VITALS (13 sets, daily range): BP systolic 83–137; BP diastolic 42–64
--- NOTE | 2020-02-22 00:04 | NUR ---
CALL FROM MERCHANDISE BUYER. PT HR IS ELEVATED AT 124 AND SINUS TACHY. PT TAKES CARDIZEM CD AND LOPRESSOR AT HOME. DR GEORGE CALLED AND MADE AWARE.
--- NOTE | 2020-02-22 00:16 | NUR ---
HR BACK TO DOWN TO 69 AND PACED. WILL CONT TO MONITOR.
--- NOTE | 2020-02-22 04:14 | NUR ---
REMAINS ADEQUATELY SEDATED ON DIPRIVAN GTT.
--- NOTE | 2020-02-22 05:52 | NUR ---
0552 REPOSITIONED ON BACK. VERSED 5MG IV FOR RESTLESSNESS AND IMMEDIATELY EFFECTIVE. TF MAINTAINED. DIPRIVAN GTT CONT. WRIST RESTRAINTS INTACT BILATERALLY. SP PARKER PATENT. NO DISTRESS NOTED. CONDITION GUARDED.
[2020-02-22 06:24] LABS: BASO % 0.2 % (0.0-1.0); HEMATOCRIT 37.4 % (42.0-52.0); LYMPH # 0.5 10*3/uL (1.3-4.4); LYMPH % 7.9 % (27.0-41.0); MEAN CELL VOLUME 87.4 fl (80.0-94.0); MEAN CORPUSCULAR HGB 26.4 pg (27.0-31.0); MEAN CORPUSCULAR HGB CONC 30.2 g/dl (33.0-37.0); MEAN PLATELET VOLUME 10.4 fl (9.6-12.3); MONO # 0.5 10*3/uL (0.1-1.0); MONO % 8.3 % (3.0-9.0); NEUT # 4.8 10*3/uL (2.3-7.9); NEUT % 83.1 % (47.0-73.0); PLATELET COUNT AUTOMATED 208 10*3/uL (130-400); RED BLOOD COUNT 4.28 10*6/uL (4.50-5.90); RED CELL DISTRI WIDTH 15.6 % (0-14.5); WHITE BLOOD COUNT 5.8 10*3/uL (4.8-10.8)
[2020-02-22 06:49] LABS: ALBUMIN 2.5 gm/dl (3.1-4.5); CHLORIDE 93 mmol/L (98-107); CREATININE 1.13 mg/dL (0.70-1.30); LDH 160 U/L (87-241); POTASSIUM 3.4 mmol/L (3.5-5.1); SGOT/AST 16 IU/L (3-35); SGPT/ALT 20 U/L (12-78); SODIUM 137 mmol/L (136-145); TOTAL PROTEIN 8.1 gm/dL (6.4-8.2)
[2020-02-22 06:51] LABS: ALKALINE PHOSPHATASE 94 U/L (45-117)
[2020-02-22 07:01] LABS: BUN 31 mg/dl (7-24)
[2020-02-22 08:37] LABS: ABG BASE EXCESS 13.6 mmol/L (-2.0-2.0); ARTERIAL BLOOD GAS PH 7.525 (7.35-7.45)
--- NOTE | 2020-02-22 08:59 | NUR ---
PHYSICAL THERAPY Nursing screen received and chart reviewed. Patient admitted for acute on chronic respiratory failure, acute metabolic encephalopathy, and acute on chronic diastolic CHF. Patient was intubated in the emergency department for medical management and placed on Covid-19 Precautions. Recommend skilled PT evaluation when patient is medically appropriate to participate. Thank you. Layne Banda,PT,DPT
--- NOTE | 2020-02-22 09:00 | NUR ---
Nursing screen received and chart reviewed. Patient is intubated and in covid-19 precautions. No OT indicated at this time. Louise Kurtz OTR/l
--- NOTE | 2020-02-22 11:42 | NUR ---
0907 fULL ASSESSMENT. No spontaneous opening of eyes, cough and gag ntact, oral mucosa dry. Oral care given. Oral suction revealed scant blood. Propofol to OFF. pt. slow to awaken. IV #24 to left arm reddeed. Re-start to ANIA. 60 cc residual obtained w/ TF including a small blood clot. TF to OFF . [address] [facility] w/ rate 130 . Repositioned to Rt side.
--- NOTE | 2020-02-22 11:54 | NUR ---
Spoke to daughter, Sabrina, regarding discharge planning. Patient states lives at home with his girlfriend. There are 0 steps in the home. There is 1 small step to get into his apartment. She states they are apartments for elderly people so they are handicap accessible. Physician: Mike Diaz Pharmacy: [facility] Home health services: has a nurse but daughter unsure of company Patient's level of ADLs: MINIMAL ASSIST Patient has working utilities: yes DME: cane, O2 unsure of liter flow, unsure of company, prior was [facility] Follow-up physician's appointment after d/c: will be made by the hospitalist nurse director upon discharge Does patient want to access PORTAL?: no Discharge plan discussed with daughter, Sabrina. He lives at home with his girlfriend. He is normally independent in his ADLs and ambulates with a cane. Discussed short term rehab vs home health care services. She states he currently has a nurse that comes in but she is unsure of which company. Reached out to [facility] and patient is current with them. Discharge plan undecided at this time. DANIEL WALKER
--- NOTE | 2020-02-22 14:08 | NUR ---
IV site to LA reddened. dc'd and second site placed to left upper outer antecubital. Repositioned. Tachycardic w/ HR 128 prior to repositioning. Tele monitor removed.
--- NOTE | 2020-02-22 16:12 | NUR ---
Dr. Aden called in , update given , orders recieved. Dr. Hightower was called and notified of need for central line.
--- NOTE | 2020-02-22 17:05 | NUR ---
Dtr. Bennett was called update given and permission was obtained for central line placement. Anesthesia here for line placement.
--- NOTE | 2020-02-22 17:45 | NUR ---
Central line placed to RIJ. CXR taken.
--- NOTE | 2020-02-22 18:47 | NUR ---
[facility] called w/ CXR report. MLC in RA and OGT in JE junction. POST HOLE DIGGING MACHINE OPERATOR Liudmila to be notified.
--- NOTE | 2020-02-22 18:58 | NUR ---
OGT advanced and secured. Placement verification w/ air bolus.
--- NOTE | 2020-02-22 21:31 | NUR ---
PATIENT GIVEN VERSED DUE TO AGITATION HE WAS PULLING AT RESTRAINTS.PATIENT IS RETING WITH EYES CLOSED AT THIS TIME VITALS STABLE SEE VITAL SCREEN.DIPROVAN INFUSING AT THIS TIME.
[2020-02-23] VITALS (11 sets, daily range): BP systolic 90–114; BP diastolic 42–60
--- NOTE | 2020-02-23 00:06 | NUR ---
CALLED SARAH FROM ANESTHESIA AND INFORMED HER OF CHEST XRAY SINCE PULLING BACK R IJ SHE SAID IT SHOULD BE FINE TO USE AT THIS POINT.
--- NOTE | 2020-02-23 02:09 | NUR ---
PATIENTS VITALS TSABLE BAT THIS TIME ERASTO AT 30mcqs CURRENTLY NO MORE VERSED NEEDED R IJ MLC PATENT WITH BLOOD RETURN PULMOCARE INFUSING AT 20CC/HR.
[2020-02-23 05:51] LABS: ALBUMIN 2.6 gm/dl (3.1-4.5); CREATININE 1.4 mg/dL (0.70-1.30); POTASSIUM 3.1 mmol/L (3.5-5.1); TOTAL PROTEIN 7.8 gm/dL (6.4-8.2)
[2020-02-23 06:19] LABS: BASO % 0.2 % (0.0-1.0); HEMATOCRIT 37.3 % (42.0-52.0); LYMPH # 0.4 10*3/uL (1.3-4.4); LYMPH % 6.2 % (27.0-41.0); MEAN CELL VOLUME 87.8 fl (80.0-94.0); MEAN CORPUSCULAR HGB 26.6 pg (27.0-31.0); MEAN CORPUSCULAR HGB CONC 30.3 g/dl (33.0-37.0); MEAN PLATELET VOLUME 11.1 fl (9.6-12.3); MONO # 0.5 10*3/uL (0.1-1.0); MONO % 8.5 % (3.0-9.0); NEUT # 5.4 10*3/uL (2.3-7.9); NEUT % 84.8 % (47.0-73.0); PLATELET COUNT AUTOMATED 217 10*3/uL (130-400); RED BLOOD COUNT 4.25 10*6/uL (4.50-5.90); RED CELL DISTRI WIDTH 15.8 % (0-14.5); WHITE BLOOD COUNT 6.3 10*3/uL (4.8-10.8)
[2020-02-23 08:57] LABS: ABG BASE EXCESS 10.2 mmol/L (-2.0-2.0); ARTERIAL BLOOD GAS PH 7.515 (7.35-7.45)
--- NOTE | 2020-02-23 09:00 | NUR ---
Patient is intubated and in COVID isolation precautions. CM will continue to follow for any discharge planning.
--- NOTE | 2020-02-23 10:23 | NUR ---
Covid resulted as negative. Isolation dc'd. Dr. Aden in. Post sedation vacation Propofol resumed at 30 mcg/kg.
[2020-02-24] VITALS (10 sets, daily range): BP systolic 103–125; BP diastolic 50–66
--- NOTE | 2020-02-24 04:10 | NUR ---
patient turned down to 5 mcqs diprovan at around 2 am. patient given versed at 235am patient awake and moving around. patient is responding to questions asked by head movement currently patient readjusted for comfort. not much movement currently vitals all stab;e at this time.
[2020-02-24 06:27] LABS: ALBUMIN 2.7 gm/dl (3.1-4.5); CREATININE 1.4 mg/dL (0.70-1.30); POTASSIUM 3.7 mmol/L (3.5-5.1); TOTAL PROTEIN 8.3 gm/dL (6.4-8.2)
[2020-02-24 06:33] LABS: HEMATOCRIT 39.2 % (42.0-52.0); LYMPH # 0.4 10*3/uL (1.3-4.4); LYMPH % 4.8 % (27.0-41.0); MEAN CELL VOLUME 88.1 fl (80.0-94.0); MEAN CORPUSCULAR HGB 26.7 pg (27.0-31.0); MEAN CORPUSCULAR HGB CONC 30.4 g/dl (33.0-37.0); MEAN PLATELET VOLUME 10.4 fl (9.6-12.3); MONO # 0.6 10*3/uL (0.1-1.0); NEUT # 7.3 10*3/uL (2.3-7.9); NEUT % 87.7 % (47.0-73.0); PLATELET COUNT AUTOMATED 212 10*3/uL (130-400); RED BLOOD COUNT 4.45 10*6/uL (4.50-5.90); RED CELL DISTRI WIDTH 15.3 % (0-14.5); WHITE BLOOD COUNT 8.3 10*3/uL (4.8-10.8)
[2020-02-24 07:53] LABS: ABG BASE EXCESS 7.2 mmol/L (-2.0-2.0); ARTERIAL BLOOD GAS PH 7.469 (7.35-7.45)
--- NOTE | 2020-02-24 08:10 | NUR ---
VERSED GIVEN DUE TO PATIENT BEING TRANSFERRED BACK TO ICCU. VERSED EFFECTIVE.
--- NOTE | 2020-02-24 08:25 | NUR ---
[facility] REPORT GIVEN TO GRETA JACOBO. PATIENT TOLERATED WELL.
--- NOTE | 2020-02-24 08:30 | NUR ---
RECIEVED IN ICU 4, VENTED AND PT TOLERATING WELL WITH NO DIPROVAN INFUSING RESPONDS TO VOICE AND FOLLOWS SIMPLE COMMANDS PULMOCARE AT 20, RIJ SECURE
--- NOTE | 2020-02-24 09:00 | NUR ---
Patient is intubated and in COVID isolation precautions. CM will continue to follow for any discharge planning.
--- NOTE | 2020-02-24 11:30 | NUR ---
VENT MODE CHANGED TO CPAP OF 5, PS [address] BUSTAMANTE. PT DID NOT TOLERATE PS 10: RR 60-70 WITH VST 150-190. THERFORE, PS INCREASED TO 15: RR 26-29 WITH VST 300. PT TOLERATING WELL. VM TO DR BUSTAMANTE.
--- NOTE | 2020-02-24 11:45 | NUR ---
FAILED CPAP, RETURNED TO VENT SETTINGS DIPROVAN RESUMED AT 10 MCG FOR PTS COMFORT
--- NOTE | 2020-02-24 12:00 | NUR ---
DR BUSTAMANTE AWARE OF PS OF 15. PER DR BUSTAMANTE, MODE CHANGED BACK TO AC. PT TOLERATING WELL. RESPS REGULAR AND UNLABORED. ABG CANCELLED.
--- NOTE | 2020-02-24 13:13 | NUR ---
ABILIOCO FOR GENERALIZED BODY ACHES
--- NOTE | 2020-02-24 19:59 | NUR ---
VERSED FOR SEDATION ERASTO GRACE'D RETO HIGH TRIG LEVELS
--- NOTE | 2020-02-24 22:26 | NUR ---
VERSED FOR SEDATION
[2020-02-25] VITALS: BP 120/60
--- NOTE | 2020-02-25 03:49 | NUR ---
Shift chart check completed.24 HR chart check completed.
[2020-02-25 04:00] VITALS: BP 118/58
[2020-02-25 05:32] LABS: ALBUMIN 2.6 gm/dl (3.1-4.5); ALKALINE PHOSPHATASE 83 U/L (45-117); BUN 77 mg/dl (7-24); CHLORIDE 101 mmol/L (98-107); CREATININE 1.37 mg/dL (0.70-1.30); SGOT/AST 54 IU/L (3-35); SGPT/ALT 54 U/L (12-78); SODIUM 143 mmol/L (136-145); TOTAL PROTEIN 7.9 gm/dL (6.4-8.2); TRIGLYCERIDES 457 mg/dl (<150)
[2020-02-25 05:33] LABS: PREALBUMIN 30 mg/dl (20-40)
--- NOTE | 2020-02-25 05:35 | NUR ---
VERSED IV FOR ANXIETY,RESTLESSNESS, REACHING FOR ET TUBE. THIS IS IMMEDIATELY EFFECTIVE.
[2020-02-25 06:01] LABS: BASO % 0.1 % (0.0-1.0); HEMATOCRIT 40.3 % (42.0-52.0); LYMPH # 0.4 10*3/uL (1.3-4.4); LYMPH % 4.5 % (27.0-41.0); MEAN CELL VOLUME 89.8 fl (80.0-94.0); MEAN CORPUSCULAR HGB 26.7 pg (27.0-31.0); MEAN CORPUSCULAR HGB CONC 29.8 g/dl (33.0-37.0); MONO # 0.8 10*3/uL (0.1-1.0); MONO % 8.5 % (3.0-9.0); NEUT # 7.7 10*3/uL (2.3-7.9); NEUT % 86.2 % (47.0-73.0); PLATELET COUNT AUTOMATED 202 10*3/uL (130-400); RED BLOOD COUNT 4.49 10*6/uL (4.50-5.90); RED CELL DISTRI WIDTH 14.8 % (0-14.5)
[2020-02-25 08:00] VITALS: BP 118/59
[2020-02-25 08:19] LABS: ABG BASE EXCESS 7.4 mmol/L (-2.0-2.0); ARTERIAL BLOOD GAS PH 7.409 (7.35-7.45)
--- NOTE | 2020-02-25 09:34 | NUR ---
IV VERSED FOR ANXIETY SEEN BY PUTTING CALL LIGHT ON, ATTEMPTING TO TALK AND REACH FOR ETT. THIS IMMEDIATELY EFFECTIVE.
[2020-02-25 12:00] VITALS: BP 138/64
--- NOTE | 2020-02-25 12:35 | NUR ---
CPAP TRAIL STARTED. CPAP 5 PRESSURE 10 FIO2 35%.
[2020-02-25 14:34] LABS: ABG BASE EXCESS 6.5 mmol/L (-2.0-2.0); ARTERIAL BLOOD GAS PH 7.351 (7.35-7.45)
--- NOTE | 2020-02-25 15:27 | NUR ---
AT 1330 PT WAS AWAKE, FOLLOWING COMMANDS. HE WAS PLACED ON CPAP-5,PS-10. HE TOLERATED THAT FOR TWO HOURS AND ABG'S WERE DONE. AT 1515 HE WAS EXTUBATED. STARTED AT 2L/MIN AND TITRATED UP TO 4L/MIN TO ACHIEVE PULSE OX >90%. HE HAS A LOT OF BLOODY SECRETIONS IN HIS OROPHARYNX. OGT REMOVED DURING EXTUBATION. RESTRAINTS REMOVED.
[2020-02-25 16:00] VITALS: BP 138/55
[2020-02-25 17:30] LABS: ABG BASE EXCESS 7.3 mmol/L (-2.0-2.0); ARTERIAL BLOOD GAS PH 7.346 (7.35-7.45)
[2020-02-25 20:00] VITALS: BP 121/56
--- NOTE | 2020-02-25 20:24 | NUR ---
1999 INCONTINENT OF SMALL AMOUNT BROWN, LIQUID STOOL. COMPLETE BED BATH GIEVN AND LINENS CHANGED. REPOSITIONED ON LEFT SIDE. ORAL CARE DONE. BLOODY SECRETIONS CONT. RIJ MLC INTACT. ALL PORTS HEP LOCKED. UROSTOMY PATENT TO PARKER BAG. DRAINING CLEAR YELLOW URINE. PULSE OX 96% ON 3L. NO DISTRESS NOTED.
--- NOTE | 2020-02-25 22:21 | NUR ---
RESTING IN BED WATCHING TV. TAKING SMALL AMOUNTS ICE CHIPS. TOLERATING WELL.
[2020-02-26] VITALS (8 sets, daily range): BP systolic 109–128; BP diastolic 52–72
--- NOTE | 2020-02-26 04:09 | NUR ---
HAS NOT SLEPT. WEAK. WHISPERS WHEN TALKING. NO DISTRESS NOTED.
[2020-02-26 05:30] LABS: ALBUMIN 2.8 gm/dl (3.1-4.5); BUN 80 mg/dl (7-24); CHLORIDE 109 mmol/L (98-107); POTASSIUM 3.7 mmol/L (3.5-5.1); SODIUM 150 mmol/L (136-145)
[2020-02-26 05:33] LABS: ALKALINE PHOSPHATASE 87 U/L (45-117); CREATININE 1.21 mg/dL (0.70-1.30); SGOT/AST 49 IU/L (3-35); SGPT/ALT 84 U/L (12-78); TOTAL PROTEIN 8.5 gm/dL (6.4-8.2); TRIGLYCERIDES 334 mg/dl (<150)
[2020-02-26 06:06] LABS: BASO % 0.1 % (0.0-1.0); HEMATOCRIT 43.8 % (42.0-52.0); LYMPH # 0.5 10*3/uL (1.3-4.4); LYMPH % 3.4 % (27.0-41.0); MEAN CELL VOLUME 91.3 fl (80.0-94.0); MEAN CORPUSCULAR HGB 26.9 pg (27.0-31.0); MEAN CORPUSCULAR HGB CONC 29.5 g/dl (33.0-37.0); MEAN PLATELET VOLUME 11.1 fl (9.6-12.3); MONO % 7.1 % (3.0-9.0); NEUT # 12.4 10*3/uL (2.3-7.9); NEUT % 87.6 % (47.0-73.0); PLATELET COUNT AUTOMATED 229 10*3/uL (130-400); RED CELL DISTRI WIDTH 14.8 % (0-14.5); WHITE BLOOD COUNT 14.2 10*3/uL (4.8-10.8)
--- NOTE | 2020-02-26 06:10 | NUR ---
ON BEDPAN PER REQUEST. UROSTOMY PATENT. CONDITION GUARDED.
--- NOTE | 2020-02-26 07:40 | NUR ---
Shift chart check completed.24 HR chart check completed. Awake, using call light appropriately, whispers. Says he's "hungry".
[2020-02-26 08:29] LABS: ABG BASE EXCESS 9.2 mmol/L (-2.0-2.0); ARTERIAL BLOOD GAS PH 7.425 (7.35-7.45)
--- NOTE | 2020-02-26 10:39 | NUR ---
ON ASSESSMENT PATIENT ALERT, APPEARS ORIENTED, WHISPERS CONVERSATION. HE WAS ASSISTED TO SIT IN THE RECLINER CHAIR, BORE WEIGHT WELL. HE'S TAKEN ICE CHIPS EASILY AND LIQUIDS WITH SOME COUGHING. TOOK HIS MEDS WHOLE. MLC INTACT RIJ. UROSTOMY INTACT. SEE ALL APPROPRIATE INTERVENTIONS.
--- NOTE | 2020-02-26 12:21 | NUR ---
DR BUSTAMANTE HAS VISITED. UPDATED ON PT TAKING ICE AND SIPS OF LIQUIDS WITH HIS MEDS. OKAY TO START CLEAR LIQUID DIET AND ADVANCE TO PUREED. PT WAS UP TO BSC TO ATTEMPT TO MOVE HIS BOWELS, VERY SMALL BETWEEN CHEEKS ONLY. BACK TO CHAIR, WATCHING TV.
--- NOTE | 2020-02-26 13:25 | NUR ---
PT TAKING CLEAR LIQUIDS (NO STRAW) WITHOUT DIFFICULTY, AND WILL ADVANCE HIM TO A PUREED DIET ORDERED. DR BUSTAMANTE HAS INDICATED THAT PT COULD GO TO STEPDOWN AND DR MCCARTHY AGREED. PT WILL BE MOVED TO 523.
--- NOTE | 2020-02-26 14:28 | NUR ---
MESSAGE ON DAUGHTER JUSTINE'S VOICEMAIL THAT PT HAS BEEN MOVED TO 523. PT BACK TO BED WITH ASSIST AND TRANSFERRED, IN STABLE CONDITION TO 523.
--- NOTE | 2020-02-26 14:30 | NUR ---
LIZ, DAUGHTER, NOTIFIED OF PT'S MOVE TO 523.
--- NOTE | 2020-02-26 14:31 | NUR ---
PT RESTING IN BED. RESPS EASY AND NON LABORED. NO S/S OF DISTRESS NOTED. VSS. WHITE BOARD UPDATED. POC DISCUSSED W PT. A/O X3. LLQ UROSTOMY INTACT/PATENT-LIGHT SEDIEMENT/YELLOW.SCATTERED RHONCHI NOTED W PROD COUGH. NO SOB@REST. WOUND TO L GROIN NOTED. RIJ DRG C/D/I-ALL PORTS PATENT.4L NC AT THIS TIME. VSS. PT STATES NO FURTHER BLEEDING IN MOUTH-HARSH WHISPER WHEN PT TALKS. REQUESTING ICE AND POPSICLES. WILL CONTINUE TO MONITOR. CALL LIGHT WITHIN REACH. FALL/SKIN PRECAUTIONS MAINTAINED.
--- NOTE | 2020-02-26 23:00 | NUR ---
There is no need for pt to wear the BiPap at this time.
[2020-02-27] VITALS: BP 110/52
--- NOTE | 2020-02-27 03:22 | NUR ---
PATIENT UROSTOMY LEAKING, CHANGED WAFFER AND BAG TO PATIENTS SUPPLIES, STATES IT WORKS BETTER. DRESSING CHANGE COMPLETED TO LEFT GROIN AT THIS TIME WELL.
[2020-02-27 06:14] VITALS: BP 116/90
[2020-02-27 06:31] LABS: BASO % 0.1 % (0.0-1.0); EOS % 0.2 % (1.0-4.0); HEMATOCRIT 40.4 % (42.0-52.0); LYMPH # 0.8 10*3/uL (1.3-4.4); LYMPH % 4.6 % (27.0-41.0); MEAN CELL VOLUME 88.8 fl (80.0-94.0); MEAN CORPUSCULAR HGB 26.6 pg (27.0-31.0); MONO % 5.8 % (3.0-9.0); NEUT # 14.8 10*3/uL (2.3-7.9); NEUT % 88.7 % (47.0-73.0); PLATELET COUNT AUTOMATED 212 10*3/uL (130-400); RED BLOOD COUNT 4.55 10*6/uL (4.50-5.90); RED CELL DISTRI WIDTH 14.6 % (0-14.5); WHITE BLOOD COUNT 16.7 10*3/uL (4.8-10.8)
[2020-02-27 06:45] LABS: CHLORIDE 100 mmol/L (98-107); POTASSIUM 3.6 mmol/L (3.5-5.1); SODIUM 141 mmol/L (136-145)
[2020-02-27 06:52] LABS: ALBUMIN 2.6 gm/dl (3.1-4.5); ALKALINE PHOSPHATASE 84 U/L (45-117); CREATININE 0.96 mg/dL (0.70-1.30); SGOT/AST 29 IU/L (3-35); SGPT/ALT 73 U/L (12-78); TOTAL PROTEIN 7.7 gm/dL (6.4-8.2)
[2020-02-27 06:53] LABS: BUN 62 mg/dl (7-24)
--- NOTE | 2020-02-27 07:30 | NUR ---
PT RESTING IN BED. RESPS EASY AND NON LABORED. VSS. WHITE BOARD UPDATED. POC DISCUSSED W PT. A/O X3. 4L NC INTACT. CONTINUES W SCATTERED RHONCHI AND PROD COUGH. NOTED W RASPY HARSH VOICE-PT WISPERS TO COMMUNICATE.RIJ C/D/I AND PATIENT. LLQ UROSTOMY C/D/I & PATENT CLEAR YELLOW URINE. PT INSTRUCTED ON SUCTION USE AND ENCOURAGED TO DEEP BREATH/COUGH. CALL LIGHT WITHIN REACH. WILL CONTINUE TO MONITOR
--- NOTE | 2020-02-27 09:00 | NUR ---
CM in to see patient. Discussed short term rehab and he refuses. Discussed home health care services and he currently has OV and would like to have therapy added. He states he will be returning home with his lady friend. Hospitalist nurse director notified of need for the addition of therapy for home health. When medically stable he will be discharged to home with [facility] services. He states his lady friend will provide transportation on discharge.
--- NOTE | 2020-02-27 10:01 | NUR ---
PT MEDICATED W ZOFRAN FOR C.O NAUSEA. WILL MONITOR. RESPS EASY AND NON LABORED. SITTING UP IN CHAIR. CALL LIGHT WITHIN REACH
--- NOTE | 2020-02-27 10:15 | NUR ---
PT ASSISTED TO CHAIR.
--- NOTE | 2020-02-27 10:43 | NUR ---
ZOFRAN APPEARS EFFECTIVE. PT SITTING UP CHAIR WATCHING TV. SUCTION WITHIN REACH. CALL LIGHT WITHIN REACH. BODY ALARM INTACT.
--- NOTE | 2020-02-27 11:41 | NUR ---
Faxed home health care resumption along with clinical to [facility]
[2020-02-27 12:00] VITALS: BP 116/51
--- NOTE | 2020-02-27 15:57 | NUR ---
Patient resting quietly with no c/o discomfort. Respirations easy and regular. Vital signs stable. No overt distress. HISSOM,JENNIE
[2020-02-27 16:00] VITALS: BP 128/65
[2020-02-27 20:00] VITALS: BP 104/5; BP 104/50
--- NOTE | 2020-02-27 22:30 | NUR ---
DRESSING CHANGE COMLPETED TO LEFT GROIN, PREVIOUS DRSG NOTED TO BE SATURATED WITH PURULENT DRAINAGE. PATIENT TOLERATED PROCEDURE WELL.
--- NOTE | 2020-02-27 23:00 | NUR ---
There is no indication for pt to wear BiPap at this time. Order is PRN.
[2020-02-27 23:38] VITALS: BP 103/61
[2020-02-28] VITALS (10 sets, daily range): BP systolic 100–125; BP diastolic 45–65
[2020-02-28 06:02] LABS: HEMATOCRIT 40.4 % (42.0-52.0); MEAN CELL VOLUME 87.3 fl (80.0-94.0); MEAN CORPUSCULAR HGB 26.3 pg (27.0-31.0); MEAN CORPUSCULAR HGB CONC 30.2 g/dl (33.0-37.0); MEAN PLATELET VOLUME 11.1 fl (9.6-12.3); PLATELET COUNT AUTOMATED 236 10*3/uL (130-400); RED BLOOD COUNT 4.63 10*6/uL (4.50-5.90); RED CELL DISTRI WIDTH 14.2 % (0-14.5); WHITE BLOOD COUNT 18.3 10*3/uL (4.8-10.8)
[2020-02-28 06:18] LABS: CHLORIDE 96 mmol/L (98-107); SODIUM 138 mmol/L (136-145)
[2020-02-28 06:34] LABS: ALBUMIN 2.6 gm/dl (3.1-4.5); ALKALINE PHOSPHATASE 90 U/L (45-117); CREATININE 1.04 mg/dL (0.70-1.30); SGOT/AST 26 IU/L (3-35); SGPT/ALT 66 U/L (12-78); TOTAL PROTEIN 7.9 gm/dL (6.4-8.2)
[2020-02-28 06:35] LABS: BUN 51 mg/dl (7-24)
[2020-02-28 07:25] LABS: PLATELET SUFFICIENCY NORMAL (NORMAL); TOTAL CELLS COUNTED 100 #CELLS
--- NOTE | 2020-02-28 09:00 | NUR ---
CM in to see patient. No new needs or request at this time. When medically stable he will be discharged to home with the resumption of his home health care services.
--- NOTE | 2020-02-28 11:00 | NUR ---
PT INSTRUCTED ON FLUTTER, PT. PERFORMED USE AND UNDERSTANDING OF EXERCISE. PT. ALSO DID I/S, PT ACHIEVED A VOLUME OF 500, INSTRUCTED PT TO TAKE HOME UPON DISCHARGE,. PT HAS MOIST NPC. NC ON AT 4L.
--- NOTE | 2020-02-28 15:21 | NUR ---
RECIEVED REPORT AND ASSUMED CARE OF PT.
--- NOTE | 2020-02-28 19:35 | NUR ---
HEARD LOUD NOISE AND SKIN CONTACT TO FLOOR FROM NURSES STATION. CAME TO ROOM, NOTED PATIENT ON FLOOR, WHISPERING HELP. NOTED THAT RIGHT SHOULDER TO BE SWOLLEN AND DISFIGURED.VITAL SIGNS TAKEN, PATIENT DID NOT HAVE HISA OXYGEN ON HE WAS 70% ON ROOM AIR, ONLY ABLE TO GET O2 TO 88-90% ON NC AT 10L. VENTURI MASK AT 50% PLACED, SPO2 INCREASED TO 97%. 2WAS IMMEDIATELY CALLED TO CO0ME TO ROOM. PATIENT HAD HIT HIS HEAD NOTED REDDDEN AREA TO LEFT FOREHEAD, SKIN TEAR TO LEFT KNEE, BRUISE TO RIGHT LEG. A BRUISED AREA TO LEFT BUTTOCK, UNABLT TO FULLY ASSESS AT THIS DUE TO MINIMIZING MOVEMENT WITH SHOULDER AND HEAD INJURY. AREA OF AREAS. OTHER VITAL SIGNS ARE WITHIN NORMAL LIMITS, RESP NOTED IMPROVED AFTER VENTURI PLACED. PATIENT STATES HE TRIED TO GET UP BECAUSE HE WAS WET FROM HIS UROSTOMY AND NO ONE WAS IN HIS ROOM TO HELP. ASKED PATIENT WHY HE DID NOT PRESS HIS CALL LIGHT, HE SAID HE DID NOT WANT TO AT THAT TIME. STILL PRESENT IN ROOM.
--- NOTE | 2020-02-28 20:00 | NUR ---
WEIGHT CLERK MADE AWARE OF PATIENT FALL.
--- NOTE | 2020-02-28 20:02 | NUR ---
PATIENT TRANSFERRED TO GET CT OF HEAD AND SCANS OF SHOULDER.
--- NOTE | 2020-02-28 20:30 | NUR ---
CALLED TO ROOM AGAIN, NOTED THAT PATIENT BECOME DROWSY/LETHARGIC AND WOULD NOT FOLLOW COMMANDS. INFORMED THAT PATIENT HAD TRIED TO REMOVE O2 MASK SEVERAL TIMES DURING SCANS ANSD WAS ANXIOUS AT THAT TIME. VITAL SIGNS REMAIN WNL AT THIS TIME 96% 125/65 HEART RATE 75 AND RESP ARE 14 BUT SHALLOW/BELLY BREATHING, MADE AWARE. INFORMED DOCTOR THAT PATIENT KEEPS ATTEMPING TO FALL ASLEEP, THIS NURSE DOES NOT WANT TO LEAVE ROOM D/T PATIENTS CONDITION. DOCTOR STATES TO AWAIT FOR SCANS TO COME BACK
--- NOTE | 2020-02-28 20:35 | NUR ---
PATIENT WAS PLACED ON HOSPICE CARE TRANSITIONS COORDINATOR AND CONTINUOUS PULSE OX.
--- NOTE | 2020-02-28 21:00 | NUR ---
VTIAL SIGNS NORMAL AT THIS TIME. PATIENT SWITCHED TO NC AT 7L SPO2 IS 95% HEART RATE OF 70 PACED PER CM AND BP OF 115/51. PATIENT IS STILL DROWSY AND CLOSING HIS EYES, WHICH IS AWARE OF, PATIENT IS AROUSABLE, WONT FOLLOW COMMANDS, WHEN ASKED TO FOLLOW MY FINGER EYES SHAKES HIS HEAD AND CLOSES HIS EYES. WHEN WOKEN BACK UP PATIENT WILL LOOK AT NURSE AND FOLLOW HER WITH HIS EYES. BED IS LOCKED IN LOWEST POSITION, ALARM MAINTAINED.
--- NOTE | 2020-02-28 21:20 | NUR ---
HOUSE SUPERVIOSR IN ROOM TO ASSESS HOW PATIENT IS DOING. PATIENT EASILY AROUSED, NODDED HIS HEAD THAT HE WAS OK. PUPIL DILATE APPROPIATLY AT THIS TIME. CALL LIGHT WITHIN REACH, BED ALARM ON.
--- NOTE | 2020-02-28 21:42 | NUR ---
CALLED FLOOR INFORMED THAT PATIENT DOES HAVE A FRACTURE. WAS CALLED BY STATED STATES TO PLACE ARM SLING AND HE'LL SEE TOMORROW. INFORMED PATIENT OF FRACTURE, ASKED IF HE WANTS ME TO CALL FAMILY TO INFORMED OF WHAT HAPPEN, PATIENT STATED ABSOLUTELY NOT. ASKED IF HE WAS SURE HE STATES YES, PATIENT IS ALERT AND ORIENT X3
--- NOTE | 2020-02-28 21:52 | NUR ---
TAR HEEL MADEAWARE THAT PATIENT DID NOT WANT ME TO CALL FAMILY
--- NOTE | 2020-02-28 23:10 | NUR ---
PATIENT EASILY AROUSED. PATIENT STATES HE IS OK AT THIS TIME. BED IS LOCKED IN LOWEST POSITION, ALARM MAINTAINED. CALL LIGHT WITHIN REACH
[2020-02-29] VITALS (17 sets, daily range): BP systolic 88–126; BP diastolic 48–75
--- NOTE | 2020-02-29 | NUR ---
There is no indication for pt to wear PRN ordered BiPap at this time.
--- NOTE | 2020-02-29 01:00 | NUR ---
COMPLETE UROSTOMY CHANGE DONE, [place] APPLIED D/T LEAKAGE
--- NOTE | 2020-02-29 01:00 | NUR ---
COMPLETED BED BATH DONE WITH SURGICAL PREP.
--- NOTE | 2020-02-29 01:00 | NUR ---
ABLE TO ASSESS AREA TO BUTTOCK FROM FALL FROM EARLIER OPEN AREA NOTED TO LEFT BUTTOCK, COCCYX IS HUONG BUT BLANCHABLE. WAS AWARE OF THESE NEW AREAS FROM EARLIER. AWAITING WOUND ORDERS.
--- NOTE | 2020-02-29 01:00 | NUR ---
DRESSING CHANGES COMPLETED TO LEFT GROIN AND RIJ.
--- NOTE | 2020-02-29 01:06 | NUR ---
ASKED FOR IV PAIN MEDICATIONS. STATED HE WILL PLACE ORDER.
--- NOTE | 2020-02-29 01:41 | NUR ---
PATIENT MEDICATED WITH MORPHINE FOR C/O RIGHT SHOULDER PAIN. WILL MONITOR.
--- NOTE | 2020-02-29 06:20 | NUR ---
PATIENT EASILY AROUSED. STATED HE WAS OK. VITAL SIGNS ARE BASELINE FOR PATIENT. BED IS LOCKED IN LOWEST POSITION, ALAM MAINTAINED. CALL LIGHT WITHIN REACH
[2020-02-29 07:00] LABS: BASO % 0.1 % (0.0-1.0); HEMATOCRIT 39.3 % (42.0-52.0); LYMPH # 0.4 10*3/uL (1.3-4.4); LYMPH % 2.8 % (27.0-41.0); MEAN CELL VOLUME 88.1 fl (80.0-94.0); MEAN CORPUSCULAR HGB 27.1 pg (27.0-31.0); MEAN CORPUSCULAR HGB CONC 30.8 g/dl (33.0-37.0); MEAN PLATELET VOLUME 11.3 fl (9.6-12.3); MONO # 1.2 10*3/uL (0.1-1.0); MONO % 7.6 % (3.0-9.0); NEUT # 13.8 10*3/uL (2.3-7.9); NEUT % 88.5 % (47.0-73.0); PLATELET COUNT AUTOMATED 265 10*3/uL (130-400); RED BLOOD COUNT 4.46 10*6/uL (4.50-5.90); RED CELL DISTRI WIDTH 14.3 % (0-14.5); WHITE BLOOD COUNT 15.6 10*3/uL (4.8-10.8)
[2020-02-29 07:04] LABS: ALBUMIN 2.5 gm/dl (3.1-4.5); BUN 48 mg/dl (7-24); CHLORIDE 96 mmol/L (98-107); CREATININE 0.94 mg/dL (0.70-1.30); POTASSIUM 3.7 mmol/L (3.5-5.1); SGOT/AST 19 IU/L (3-35); SGPT/ALT 63 U/L (12-78); SODIUM 136 mmol/L (136-145); TRIGLYCERIDES 194 mg/dl (<150)
[2020-02-29 07:05] LABS: ALKALINE PHOSPHATASE 96 U/L (45-117); TOTAL PROTEIN 7.5 gm/dL (6.4-8.2)
--- NOTE | 2020-02-29 07:09 | NUR ---
INFORMED THAT PATIENT IS IN STEADY VTACH AT THIS TIME, PATIENT IS AROUSEABLE, PATIENT VOICED NO COMPLAINTS. RECENT BP OF 104/62. PATIENT IS TYPICALLY PACED IN 70'S. INFORMED RT CALLED FOR STAT EKG. SATTES TO ALSO PLACE TROPOIN LEVEL X1
--- NOTE | 2020-02-29 07:11 | NUR ---
PATIENT IS PACED ON CM AT THIS TIME IN 110'S.
--- NOTE | 2020-02-29 07:24 | NUR ---
CALLED BACK. INFORMED THAT OF SUSTAINING VTACH IN THE 150'S AT 0711, CURRENTLY PACED IN 110-120'S BUT IN AND OUT OF VTACH. INFORMED OF RECENT LABS. STATED HE NEEDED TO BE STARTED ON AMIODARONE GTT PER PROTOCHOL HAVE RESIDENT PLACE ORDER AND TO GIVE PATIENT POTASSIUM 20 PO. ALSO STATES TO CALL RESIDENTS AND INFORMED THEM THAT THEY NEEDED TO BE IN ROOM LYNETTE TO ASSESS PATIENT.
--- NOTE | 2020-02-29 07:25 | NUR ---
INFORMED OF WHAT HAD STATED AND WANTED ORDERED. INFORMED HIM ALSO THAT PATIENT WAS MADE NPO INCASE OF SURGERY SO POTASSIUM NEEDED TO BE ADJUSTED.
--- NOTE | 2020-02-29 07:42 | NUR ---
PATIENT TRANSFERRED TO ICU. REPORT GIVEN.
--- NOTE | 2020-02-29 07:51 | NUR ---
PHYSICAL THERAPY PT screen received. Pt admitted from home w CHF, acute resp failure and acute metabolic encephalopathy. Please consult PT if patient has a decline in functional status below baseine. Vitor Ball SPT Shira Griffiths PT
--- NOTE | 2020-02-29 08:04 | NUR ---
Nursing screen received and chart reviewed. Patient is intubated and not appropriate for occupational therapy at this time. Should patient have a significant decline in ADLs and safety then refer to OT when medically appropriate. Thank you. Louise Kurtz OTR/francesca
--- NOTE | 2020-02-29 22:00 | NUR ---
Patients pulse ox dropped to 75% on 4L nc. Patient mouth breathing, encouraged to breath through nose, O2 increased. Pulse ox only went to 77%, patient placed on non-rebreather and pulling abg.
--- NOTE | 2020-02-29 22:50 | NUR ---
Notified Dr Aden of patients pulse ox dropping. New order received for bipap and intubation if necessary and ok'd with family.
--- NOTE | 2020-02-29 22:52 | NUR ---
Contacted patients family and notified them of him being on bipap and could possibly need intubated if worsening throughout the night. Spoke with daughter Joy and she and her sister agreed to intubate patient if needed.
--- NOTE | 2020-02-29 23:00 | NUR ---
Patient given morphine for pain in rt shoulder. Patient on bipap, tolerating well, pox 92% monitoring.
--- NOTE | 2020-02-29 23:11 | NUR ---
ABG now being pulled due to no kits available. Was able to find some in the er. Awaiting results.
--- NOTE | 2020-02-29 23:16 | NUR ---
PLACED PATIENT ON BIPAP 14/10 100% O2. SPO2 92%
[2020-02-29 23:17] LABS: ABG BASE EXCESS 8.9 mmol/L (-2.0-2.0); ARTERIAL BLOOD GAS PH 7.397 (7.35-7.45)
[2020-03-01] VITALS (42 sets, daily range): BP systolic 54–136; BP diastolic 0–73
--- NOTE | 2020-03-01 03:21 | NUR ---
Patient tolerating bipap well, no signs of distress. POX 98%, morphine effective for pain.
[2020-03-01 05:41] LABS: ALBUMIN 2.4 gm/dl (3.1-4.5)
[2020-03-01 05:46] LABS: CREATININE 1.95 mg/dL (0.70-1.30); TOTAL PROTEIN 8.5 gm/dL (6.4-8.2)
[2020-03-01 06:00] LABS: POTASSIUM 4.7 mmol/L (3.5-5.1)
[2020-03-01 06:30] LABS: HEMATOCRIT 43.4 % (42.0-52.0); MEAN CORPUSCULAR HGB 26.8 pg (27.0-31.0); MEAN CORPUSCULAR HGB CONC 28.6 g/dl (33.0-37.0); NUCLEATED RED BLOOD CELL 0.1 % (0.0-0.0); RED BLOOD COUNT 4.63 10*6/uL (4.50-5.90); RED CELL DISTRI WIDTH 14.7 % (0-14.5); WHITE BLOOD COUNT 27.9 10*3/uL (4.8-10.8)
[2020-03-01 06:32] LABS: MEAN CELL VOLUME 93.7 fl (80.0-94.0); PLATELET COUNT AUTOMATED 448 10*3/uL (130-400)
[2020-03-01 07:27] LABS: ABG BASE EXCESS -1.4 mmol/L (-2.0-2.0)
[2020-03-01 07:32] LABS: ARTERIAL BLOOD GAS PH 6.999 (7.35-7.45)
[2020-03-01 07:36] LABS: PLATELET SUFFICIENCY HIGH (NORMAL); POLYCHROMASIA SLIGHT; TOTAL CELLS COUNTED 100 #CELLS
[2020-03-01 08:00] LABS: ABG BASE EXCESS -1.8 mmol/L (-2.0-2.0)
--- NOTE | 2020-03-01 08:00 | NUR ---
CALLED WITH ABG RESULTS. NEW ORDERS RECEIVED TO INTUBATE PATIENT. DAUGHTER JUSTINE CALLED AND UPDATED ON PATIENT CONDITION. NOTIFIED.
[2020-03-01 08:04] LABS: ARTERIAL BLOOD GAS PH 6.995 (7.35-7.45)
--- NOTE | 2020-03-01 08:30 | NUR ---
PATIENT INTUBATED WITH #8 ETT. 28 LIP. SEDATED WITH 100 SUCCS AND 20 ETOMIDATE. OGT INSERTED.
--- NOTE | 2020-03-01 08:30 | NUR ---
AM ABG WITH PCO2 > 100. THEREFORE, PT INTUBATED BY DR TRAYLOR WITHOUT INCIDENT. PT PLACED ON VENT. CHECKED AND FX'ING. RESPS REGULAR AND UNLABORED. PT MEDICATED. PT WITH EQUAL BBBs.
--- NOTE | 2020-03-01 09:45 | NUR ---
BLOOD PRESSURE 50/0 MANUALLY. AWARE. LEVOPHED GTT STARTED.
[2020-03-01 10:35] LABS: ABG BASE EXCESS 1.8 mmol/L (-2.0-2.0); ARTERIAL BLOOD GAS PH 7.286 (7.35-7.45)
--- NOTE | 2020-03-01 10:40 | NUR ---
OT NOTE Occupational therapy order received on 02/29/2020 at [address] Baez. Per OT order and ortho consult, patient has a right proximal humerus fracture, NWB R shoulder, and no active motion R shoulder. Patient was intubated in the ICCU on 03/01/2020 in the AM. Discussed with Sharon [facility]U nurse to relay information to primary nurse Bev who was not available at this time. Discussed that patient is not appropriate for OT services at this time seconday to intubation and that he is NWB R shoulder, no active motion to right shoulder with a sling per OT consult. For further concerns for R shoulder, defer to Dr. Baez. Discussed needing a new OT consult when patient is extubated. Thank you for the referral. Fidelina Ernandez OTR/L
--- NOTE | 2020-03-01 10:45 | NUR ---
PER DR BUSTAMANTE, VT DECREASED TO 400 FROM 500. PEEP INCREASED TO 7. ABG TO FOLLOW IN 2 HRS.
[2020-03-01 11:45] LABS: BILIRUBIN Negative (Negative); BLOOD Trace-Lysed (Negative); CLARITY Cloudy (Clear); COLOR Yellow (Yellow); GLUCOSE Negative (Negative); KETONE Negative (Negative); LEUKO ESTERASE Negative (Negative); NITRITE Negative (Negative); UROBILINOGEN 0.2 E.U./dl (0.0-1.0)
[2020-03-01 11:53] LABS: URINE CREATININE RANDOM 28.5 mg/dL
[2020-03-01 12:04] LABS: HYALINE CAST 16-20; YEAST 2+
[2020-03-01] MEDS ORDERED: PROTONIX40 M1 IV (12:27)
[2020-03-01] MEDS ORDERED: PACERONE200 MG NG (12:27)
[2020-03-01] MEDS ORDERED: XARE15TA OGT (12:27)
[2020-03-01] MEDS ORDERED: Humalog SQ (12:27)
[2020-03-01] MEDS ORDERED: METOPROLOL TART50 M1 PO (12:27)
[2020-03-01] MEDS ORDERED: MEXILETINE HCL150 MG PO (12:27)
[2020-03-01] MEDS ORDERED: DILTIAZEM HCL60 MG PO (12:27)
[2020-03-01] MEDS ORDERED: FUROSEMIDE10 MG/1 M1 IV (12:27)
[2020-03-01 13:20] LABS: ABG BASE EXCESS 2.5 mmol/L (-2.0-2.0); ARTERIAL BLOOD GAS PH 7.419 (7.35-7.45)
--- NOTE | 2020-03-01 13:37 | NUR ---
Notified Luci at [facility] that patient is being transferred to [place] for continued care.
--- NOTE | 2020-03-01 14:43 | NUR ---
CALLED WITH ABG RESULTS. NEW ORDERS RECEIVED.
--- NOTE | 2020-03-01 15:15 | NUR ---
AC RATE DECREASED TO [address] BUSTAMANTE.
--- NOTE | 2020-03-01 17:45 | NUR ---
PATIENT TRANSFERRED TO [facility]IA [facility]. ALL PERSONAL BELONGINGS SENT WITH PATIENT. DAUGHTER JUSTINE NOTIFIED OF TRANSFER. TRANSFER PACKET SENT WITH AMBULANCE CREW. REPORT GIVEN TO LYNDA AT [facility].
== END 2020-03-01 17:45 | disposition short-term general hospital (02) | DRG 870 ==
LOC: ED 15:06 → 4E 17:20 → EDHOLD 17:20 → 4E 02-21 11:30 → ICCU 02-24 08:10 → 5E 02-26 13:34 → ICCU 02-29 08:03
PROVIDERS: Emergency Medicine; Internal Medicine Critical Care Medicine; Internal Medicine Nephrology; Registered Nurse; Student in an Organized Health Care Education/Training Program; ADMIT Internal Medicine; ATTEND Internal Medicine
PROC: 5A09357 Assistance with Respiratory Ventilation, Less than 24 Consecutive Hours, Continuous Positive Airway Pressure (ICD-10-PCS; 2020-02-20)
PROC: 5A1955Z Respiratory Ventilation, Greater than 96 Consecutive Hours (ICD-10-PCS; principal; 2020-02-21)
PROC: 0BH18EZ Insertion of Endotracheal Airway into Trachea, Via Natural or Artificial Opening Endoscopic (ICD-10-PCS; 2020-02-21)
PROC: 02HV33Z Insertion of Infusion Device into Superior Vena Cava, Percutaneous Approach (ICD-10-PCS; 2020-02-23)
PROC: B548ZZA Ultrasonography of Superior Vena Cava, Guidance (ICD-10-PCS; 2020-02-23)
PROC: 5A09357 Assistance with Respiratory Ventilation, Less than 24 Consecutive Hours, Continuous Positive Airway Pressure (ICD-10-PCS; 2020-03-01)
DX: A41.9 Sepsis, unspecified organism (principal); J96.22 Acute and chronic respiratory failure with hypercapnia; G93.41 Metabolic encephalopathy; I50.43 Acute on chronic combined systolic (congestive) and diastolic (congestive) heart failure; J18.9 Pneumonia, unspecified organism; E43 Unspecified severe protein-calorie malnutrition; J96.21 Acute and chronic respiratory failure with hypoxia; S42.211A Unspecified displaced fracture of surgical neck of right humerus, initial encounter for closed fracture; I42.9 Cardiomyopathy, unspecified; N39.0 Urinary tract infection, site not specified; E87.3 Alkalosis; I47.2 Ventricular tachycardia; N17.9 Acute kidney failure, unspecified; I48.20 Chronic atrial fibrillation, unspecified; J91.8 Pleural effusion in other conditions classified elsewhere; J44.0 Chronic obstructive pulmonary disease with (acute) lower respiratory infection; Y99.8 Other external cause status; R73.9 Hyperglycemia, unspecified; Z20.828 Contact with and (suspected) exposure to other viral communicable diseases; D64.9 Anemia, unspecified; K57.90 Diverticulosis of intestine, part unspecified, without perforation or abscess without bleeding; E66.01 Morbid (severe) obesity due to excess calories; G62.9 Polyneuropathy, unspecified; E66.3 Overweight; D72.810 Lymphocytopenia; I48.0 Paroxysmal atrial fibrillation; S31.109A Unspecified open wound of abdominal wall, unspecified quadrant without penetration into peritoneal cavity, initial encounter; I95.9 Hypotension, unspecified; E55.9 Vitamin D deficiency, unspecified; E87.6 Hypokalemia; E78.1 Pure hyperglyceridemia; Z93.6 Other artificial openings of urinary tract status; Z95.0 Presence of cardiac pacemaker; Z98.49 Cataract extraction status, unspecified eye; Z88.1 Allergy status to other antibiotic agents; Z88.8 Allergy status to other drugs, medicaments and biological substances; Z95.5 Presence of coronary angioplasty implant and graft; Z95.1 Presence of aortocoronary bypass graft; Z82.49 Family history of ischemic heart disease and other diseases of the circulatory system; Z83.3 Family history of diabetes mellitus; Z85.51 Personal history of malignant neoplasm of bladder; I25.2 Old myocardial infarction; Z85.46 Personal history of malignant neoplasm of prostate; Z90.49 Acquired absence of other specified parts of digestive tract; Z68.25 Body mass index [BMI] 25.0-25.9, adult; X58.XXXA Exposure to other specified factors, initial encounter; Y93.89 Activity, other specified; Y92.89 Other specified places as the place of occurrence of the external cause